=== PATIENT | female | born 1945 | race African-American/Black ===

== ENCOUNTER 2016-11-08 07:22 | Day surgery (SDC) | payer OTHER, MEDICARE ==
[2016-11-08] MEDS ORDERED: DIPHENHYDRAMINE IVPB ONE (08:00)
[2016-11-08] MEDS ORDERED: DEXAMETHASONE IVPB ONE (08:00)
[2016-11-08] MEDS ORDERED: [UNRECOGNIZED DRUG - OTHER] IVPB ONE (08:00)
[2016-11-08] MEDS ORDERED: ONDANSETRON IVPB ONE (08:00)
[2016-11-08] MEDS ORDERED: PACLITAXEL IVPB ONE (08:30)
[2016-11-08] MEDS ORDERED: SODIUM CHLORIDE IVPB ONE (08:30)
[2016-11-08] MEDS ORDERED: SODIUM CHLORIDE 250 ML IV ONE (09:30)
[2016-11-08 09:52] LABS: BASOPHIL 0.8 % (0-2.0); MCHC 32.4 g/dl (32.0-36.0)
[2016-11-08 09:57] LABS: MCH 29.5 pg (25.7-33.7); MEAN CELL VOLUME 90.8 fl (80-96); MEAN PLT VOLUME 8.9 fl (7.5-11.1); NEUTROPHILS 57.7 % (42.8-82.8); PLATELET COUNT 229 K/MM3 (134-434); RDW 21.4 % (11.6-15.6); WHITE BLOOD COUNT 5.2 K/mm3 (4.0-10.0)
[2016-11-08 12:44] LABS: ANISOCYTOSIS 3+; HYPOCHROMIA 2+; MICROCYTOSIS 2+; POLYCHROMASIA 1+; TEAR DROP CELLS 1+
[2016-11-08 15:10] VITALS: TEMP 97.7
[2016-11-08 15:13] VITALS: BP 122/73; PULSE 76
[2016-11-08 15:44] VITALS: BMI 25.8
== END 2016-11-08 16:20 | disposition home or self-care (01) ==
LOC: J7W 07:22 → JONCCHEMO 07:22 → JCHEMO 07:22 → JSAMEDAYSX 11:06 → J7W 11:16 → JCHEMO 16:20
PROVIDERS: ATTEND Internal Medicine Hematology & Oncology
DX: Z51.11 Encounter for antineoplastic chemotherapy (principal); C50.412 Malignant neoplasm of upper-outer quadrant of left female breast; C79.51 Secondary malignant neoplasm of bone; I10 Essential (primary) hypertension; E11.9 Type 2 diabetes mellitus without complications; D64.9 Anemia, unspecified; H40.9 Unspecified glaucoma
CPT/HCPCS: 96367; 96413; J9267; 36415; 85025; 96415

== ENCOUNTER 2016-11-15 06:33 | Day surgery (SDC) | payer OTHER, MEDICARE ==
[2016-11-15] MEDS ORDERED: ONDANSETRON IVPB ONE (08:00)
[2016-11-15] MEDS ORDERED: DEXAMETHASONE IVPB ONE (08:00)
[2016-11-15] MEDS ORDERED: SODIUM CHLORIDE 250 ML IV ONE (08:00)
[2016-11-15] MEDS ORDERED: [UNRECOGNIZED DRUG - OTHER] IVPB ONE (08:00)
[2016-11-15] MEDS ORDERED: DIPHENHYDRAMINE IVPB ONE (08:00)
[2016-11-15] MEDS ORDERED: PACLITAXEL 126 MG in SODIUM CHLORIDE 250 ML IVPB ONE (08:30)
[2016-11-15 08:33] LABS: MCH 29.6 pg (25.7-33.7); MCHC 32.4 g/dl (32.0-36.0); MEAN CELL VOLUME 91.5 fl (80-96); MEAN PLT VOLUME 8.9 fl (7.5-11.1); PLATELET COUNT 321 K/MM3 (134-434)
[2016-11-15 08:34] LABS: NEUTROPHILS 61.1 % (42.8-82.8)
[2016-11-15 08:35] LABS: BASOPHIL 1.2 % (0-2.0); EOSINOPHIL 0.9 % (0-4.5)
[2016-11-15 11:33] VITALS: BP 133/75; PULSE 83; TEMP 98.2
[2016-11-15 15:16] VITALS: BMI 25.2
== END 2016-11-15 15:50 | disposition home or self-care (01) ==
LOC: JONCCHEMO 06:33 → J7W 08:57 → JONCCHEMO 15:50
PROVIDERS: ATTEND Internal Medicine Hematology & Oncology
DX: Z51.11 Encounter for antineoplastic chemotherapy (principal); C50.412 Malignant neoplasm of upper-outer quadrant of left female breast; C79.51 Secondary malignant neoplasm of bone; I10 Essential (primary) hypertension; E11.9 Type 2 diabetes mellitus without complications; D64.9 Anemia, unspecified; H40.9 Unspecified glaucoma
CPT/HCPCS: 96367; 96413; J9267; 36415; 85027; 96415

== ENCOUNTER 2016-11-22 07:09 | Day surgery (SDC) | payer OTHER, MEDICARE ==
[2016-11-22] MEDS ORDERED: [UNRECOGNIZED DRUG - OTHER] IVPB ONE (08:00)
[2016-11-22] MEDS ORDERED: DIPHENHYDRAMINE IVPB ONE (08:00)
[2016-11-22] MEDS ORDERED: DEXAMETHASONE IVPB ONE (08:00)
[2016-11-22] MEDS ORDERED: ONDANSETRON IVPB ONE (08:00)
[2016-11-22] MEDS ORDERED: PACLITAXEL IVPB ONE (08:30)
[2016-11-22] MEDS ORDERED: SODIUM CHLORIDE IVPB ONE (08:30)
[2016-11-22] MEDS ORDERED: SODIUM CHLORIDE 250 ML IV ONE (09:30)
[2016-11-22 09:41] LABS: BASOPHIL 0.9 % (0-2.0); EOSINOPHIL 1.2 % (0-4.5); MCH 29.5 pg (25.7-33.7); MCHC 32.3 g/dl (32.0-36.0); MEAN CELL VOLUME 91.4 fl (80-96); MEAN PLT VOLUME 9.2 fl (7.5-11.1); PLATELET COUNT 245 K/MM3 (134-434); RDW 22.3 % (11.6-15.6); WHITE BLOOD COUNT 5.5 K/mm3 (4.0-10.0)
[2016-11-22] MEDS ORDERED: ZOLEDRONIC ACID 4 MG in SODIUM CHLORIDE 100 ML IVPB ONE (10:00)
[2016-11-22 10:30] VITALS: BP 143/76; PULSE 73; TEMP 97.7
== END 2016-11-22 15:00 | disposition home or self-care (01) ==
LOC: JONCCHEMO 07:09 → J7W 10:13 → JONCCHEMO 15:00
PROVIDERS: ATTEND Internal Medicine Hematology & Oncology
DX: Z51.11 Encounter for antineoplastic chemotherapy (principal); C50.411 Malignant neoplasm of upper-outer quadrant of right female breast; C50.412 Malignant neoplasm of upper-outer quadrant of left female breast; C77.9 Secondary and unspecified malignant neoplasm of lymph node, unspecified; C79.51 Secondary malignant neoplasm of bone; C79.2 Secondary malignant neoplasm of skin; I10 Essential (primary) hypertension; E11.9 Type 2 diabetes mellitus without complications
CPT/HCPCS: 36415; 85025; 96361; 96413; 96415; J3489

== ENCOUNTER 2016-11-29 06:54 | Day surgery (SDC) | payer OTHER, MEDICARE ==
[2016-11-29] MEDS ORDERED: PACLITAXEL IVPB ONE (08:30)
[2016-11-29] MEDS ORDERED: SODIUM CHLORIDE IVPB ONE (08:30)
[2016-11-29 08:32] LABS: BASOPHIL 0.9 % (0-2.0); EOSINOPHIL 1.5 % (0-4.5); MCH 30.3 pg (25.7-33.7); MCHC 32.8 g/dl (32.0-36.0); MEAN CELL VOLUME 92.5 fl (80-96); MEAN PLT VOLUME 9.2 fl (7.5-11.1); NEUTROPHILS 56.7 % (42.8-82.8); PLATELET COUNT 238 K/MM3 (134-434); RDW 22.8 % (11.6-15.6); WHITE BLOOD COUNT 4.9 K/mm3 (4.0-10.0)
[2016-11-29] MEDS ORDERED: SODIUM CHLORIDE 250 ML IV ONE (09:30)
[2016-11-29] MEDS ORDERED: FUROSEMIDE 40 MG TABLET (FP) PO SCH (09:45)
[2016-11-29] MEDS: DIPHENHYDRAMINE IVPB ONE ×2 (10:35→11:23)
[2016-11-29] MEDS: [UNRECOGNIZED DRUG - OTHER] IVPB ONE ×2 (10:35→11:23)
[2016-11-29] MEDS: ONDANSETRON IVPB ONE ×2 (10:35→11:23)
[2016-11-29] MEDS: DEXAMETHASONE IVPB ONE ×2 (10:35→11:23)
[2016-11-29 10:54] LABS: ALK PHOS 108 U/L (45-117); BILIRUBIN,TOTAL 0.3 mg/dL (0.2-1.0); SGOT/AST 29 U/L (15-37); SGPT/ALT 23 U/L (12-78); TOT PROT 6.6 g/dl (6.4-8.2)
[2016-11-29 10:55] LABS: BILIRUBIN,DIRECT < 0.1 mg/dL (0.0-0.2)
[2016-11-29 11:40] LABS: ANISOCYTOSIS 3+; MICROCYTOSIS 1+; TEAR DROP CELLS 1+
[2016-11-29 12:25] VITALS: TEMP 97.9
[2016-11-29 14:22] VITALS: BP 132/78; PULSE 86
== END 2016-11-29 14:30 | disposition home or self-care (01) ==
LOC: JONCCHEMO 06:54 → J7W 09:14 → JONCCHEMO 14:30
PROVIDERS: ATTEND Internal Medicine Hematology & Oncology
PROC: 3E04305 Introduction of Other Antineoplastic into Central Vein, Percutaneous Approach (ICD-10-PCS; principal; 2016-11-29)
PROC: 3E033GC Introduction of Other Therapeutic Substance into Peripheral Vein, Percutaneous Approach (ICD-10-PCS; 2016-11-29)
DX: Z51.11 Encounter for antineoplastic chemotherapy (principal); C50.411 Malignant neoplasm of upper-outer quadrant of right female breast; C50.412 Malignant neoplasm of upper-outer quadrant of left female breast; C77.9 Secondary and unspecified malignant neoplasm of lymph node, unspecified; C79.51 Secondary malignant neoplasm of bone; C79.2 Secondary malignant neoplasm of skin; I10 Essential (primary) hypertension; E11.9 Type 2 diabetes mellitus without complications
CPT/HCPCS: 96367; 96413; 96415; J9267; 36415; 71020-TC; 80076; 85025; 93970-TC

== ENCOUNTER 2016-12-13 07:03 | Day surgery (SDC) | payer OTHER, MEDICARE ==
[2016-12-13] MEDS ORDERED: ONDANSETRON IVPB ONE (08:00)
[2016-12-13] MEDS ORDERED: DIPHENHYDRAMINE IVPB ONE (08:00)
[2016-12-13] MEDS ORDERED: [UNRECOGNIZED DRUG - OTHER] IVPB ONE (08:00)
[2016-12-13] MEDS ORDERED: DEXAMETHASONE IVPB ONE (08:00)
[2016-12-13] MEDS ORDERED: SODIUM CHLORIDE IVPB ONE (08:30)
[2016-12-13] MEDS ORDERED: PACLITAXEL IVPB ONE (08:30)
[2016-12-13 08:55] LABS: BASOPHIL 1.6 % (0-2.0); EOSINOPHIL 1.1 % (0-4.5); MCH 29.7 pg (25.7-33.7); MCHC 32.3 g/dl (32.0-36.0); MEAN PLT VOLUME 8.7 fl (7.5-11.1); NEUTROPHILS 69.8 % (42.8-82.8); PLATELET COUNT 291 K/MM3 (134-434); RDW 21.9 % (11.6-15.6)
[2016-12-13] MEDS ORDERED: SODIUM CHLORIDE 250 ML IV ONE (09:30)
[2016-12-13 11:23] LABS: CALCIUM 8.5 mg/dL (8.5-10.1); CREATININE 0.7 mg/dL (0.55-1.02)
[2016-12-13 12:01] LABS: ALBUMIN 2.9 g/dl (3.4-5.0); BILIRUBIN,DIRECT 0.1 mg/dL (0.0-0.2); BILIRUBIN,TOTAL 0.3 mg/dL (0.2-1.0); MAGNESIUM 1.8 mg/dL (1.8-2.4); TOT PROT 6.3 g/dl (6.4-8.2)
[2016-12-13 17:07] VITALS: BP 130/81; PULSE 84; TEMP 98.5
== END 2016-12-13 15:00 | disposition home or self-care (01) ==
LOC: JONCCHEMO 07:03 → J7W 09:53 → JONCCHEMO 15:00
PROVIDERS: ATTEND Internal Medicine Hematology & Oncology
PROC: 3E04305 Introduction of Other Antineoplastic into Central Vein, Percutaneous Approach (ICD-10-PCS; principal; 2016-12-13)
PROC: 3E0437Z Introduction of Electrolytic and Water Balance Substance into Central Vein, Percutaneous Approach (ICD-10-PCS; 2016-12-13)
PROC: 3E043GC Introduction of Other Therapeutic Substance into Central Vein, Percutaneous Approach (ICD-10-PCS; 2016-12-13)
DX: Z51.11 Encounter for antineoplastic chemotherapy (principal); C50.411 Malignant neoplasm of upper-outer quadrant of right female breast; C50.412 Malignant neoplasm of upper-outer quadrant of left female breast; C79.51 Secondary malignant neoplasm of bone
CPT/HCPCS: 96367; 96413; J9267; 36415; 80048; 80076; 82378; 83036; 83735; 85025; 86300; 96415

== ENCOUNTER 2016-12-20 07:01 | Day surgery (SDC) | payer OTHER, MEDICARE ==
[2016-12-20] MEDS ORDERED: ONDANSETRON IVPB ONE (08:00)
[2016-12-20] MEDS ORDERED: [UNRECOGNIZED DRUG - OTHER] IVPB ONE (08:00)
[2016-12-20] MEDS ORDERED: DIPHENHYDRAMINE IVPB ONE (08:00)
[2016-12-20] MEDS ORDERED: DEXAMETHASONE IVPB ONE (08:00)
[2016-12-20] MEDS ORDERED: PACLITAXEL IVPB ONE (08:30)
[2016-12-20] MEDS ORDERED: SODIUM CHLORIDE IVPB ONE (08:30)
[2016-12-20 09:00] LABS: BASOPHIL 2.8 % (0-2.0); EOSINOPHIL 1.5 % (0-4.5); MCH 29.7 pg (25.7-33.7); MCHC 32.3 g/dl (32.0-36.0); MEAN CELL VOLUME 92.1 fl (80-96); MEAN PLT VOLUME 9.4 fl (7.5-11.1); NEUTROPHILS 62.9 % (42.8-82.8); PLATELET COUNT 263 K/MM3 (134-434); RDW 21.2 % (11.6-15.6); WHITE BLOOD COUNT 6.3 K/mm3 (4.0-10.0)
[2016-12-20] MEDS ORDERED: SODIUM CHLORIDE 250 ML IV ONE (09:30)
[2016-12-20] MEDS ORDERED: ZOLEDRONIC ACID 4 MG in SODIUM CHLORIDE 100 ML IVPB ONE (10:00)
[2016-12-20 18:48] VITALS: BP 137/65; PULSE 78; TEMP 97.2
== END 2016-12-20 15:00 | disposition home or self-care (01) ==
LOC: JONCCHEMO 07:01 → J7W 10:27 → JONCCHEMO 15:00
PROVIDERS: ATTEND Internal Medicine Hematology & Oncology
PROC: 3E04305 Introduction of Other Antineoplastic into Central Vein, Percutaneous Approach (ICD-10-PCS; principal; 2016-12-20)
PROC: 3E0437Z Introduction of Electrolytic and Water Balance Substance into Central Vein, Percutaneous Approach (ICD-10-PCS; 2016-12-20)
PROC: 3E043GC Introduction of Other Therapeutic Substance into Central Vein, Percutaneous Approach (ICD-10-PCS; 2016-12-20)
DX: Z51.11 Encounter for antineoplastic chemotherapy (principal); C50.412 Malignant neoplasm of upper-outer quadrant of left female breast; C79.51 Secondary malignant neoplasm of bone; J91.0 Malignant pleural effusion
CPT/HCPCS: 36415; 85025; 93970-TC; 96360; 96365; 96367; 96413; J3489

== ENCOUNTER 2016-12-27 08:29 | Day surgery (SDC) | payer OTHER, MEDICARE ==
[2016-12-27] MEDS ORDERED: [UNRECOGNIZED DRUG - OTHER] IVPB ONE (09:00)
[2016-12-27] MEDS ORDERED: DIPHENHYDRAMINE IVPB ONE (09:00)
[2016-12-27] MEDS ORDERED: ONDANSETRON IVPB ONE (09:00)
[2016-12-27] MEDS ORDERED: DEXAMETHASONE IVPB ONE (09:00)
[2016-12-27 09:04] LABS: MCH 29.7 pg (25.7-33.7); MCHC 32.6 g/dl (32.0-36.0); MEAN CELL VOLUME 91.2 fl (80-96); PLATELET COUNT 208 K/MM3 (134-434); RDW 21.9 % (11.6-15.6)
[2016-12-27 09:05] LABS: BASOPHIL 1.1 % (0-2.0); EOSINOPHIL 2.7 % (0-4.5); NEUTROPHILS 63.2 % (42.8-82.8)
[2016-12-27] MEDS ORDERED: PACLITAXEL 126 MG in SODIUM CHLORIDE 250 ML IVPB ONE (09:30)
[2016-12-27] MEDS ORDERED: SODIUM CHLORIDE 250 ML IV ONE (10:30)
[2016-12-27] MEDS ORDERED: ZOLEDRONIC ACID 4 MG in SODIUM CHLORIDE 100 ML IVPB ONE (11:00)
[2016-12-27 15:15] VITALS: TEMP 98.4
[2016-12-27 15:44] VITALS: BP 118/79; PULSE 90
== END 2016-12-27 14:00 | disposition home or self-care (01) ==
LOC: JONCCHEMO 08:29 → J7W 09:32 → JONCCHEMO 14:00
PROVIDERS: ATTEND Internal Medicine Hematology & Oncology
PROC: 3E04305 Introduction of Other Antineoplastic into Central Vein, Percutaneous Approach (ICD-10-PCS; principal; 2016-12-27)
PROC: 3E043GC Introduction of Other Therapeutic Substance into Central Vein, Percutaneous Approach (ICD-10-PCS; 2016-12-27)
PROC: 3E0437Z Introduction of Electrolytic and Water Balance Substance into Central Vein, Percutaneous Approach (ICD-10-PCS; 2016-12-27)
DX: Z51.11 Encounter for antineoplastic chemotherapy (principal); C50.412 Malignant neoplasm of upper-outer quadrant of left female breast; C79.51 Secondary malignant neoplasm of bone; J91.0 Malignant pleural effusion
CPT/HCPCS: 96366; 96367; 96413; J1100; J1200; J2405; J3489; J7030; J9267; 36415; 85025; 96360; 96365

== ENCOUNTER 2017-01-03 07:03 | Day surgery (SDC) | payer OTHER, MEDICARE ==
[2017-01-03] MEDS ORDERED: ONDANSETRON IVPB ONE (08:00)
[2017-01-03] MEDS ORDERED: DIPHENHYDRAMINE IVPB ONE (08:00)
[2017-01-03] MEDS ORDERED: DEXAMETHASONE INJECTION 10 MG in SODIUM CHLORIDE 50 ML IVPB ONE (08:00)
[2017-01-03] MEDS ORDERED: [UNRECOGNIZED DRUG - OTHER] IVPB ONE (08:00)
[2017-01-03] MEDS ORDERED: ONDANSETRON INJECTION 12 MG, DIPHENHYDRAMINE 25 MG, RANITIDINE INJECTION 50 MG in SODIU... IVPB ONE (08:00)
[2017-01-03] MEDS ORDERED: DEXAMETHASONE IVPB ONE (08:00)
[2017-01-03] MEDS ORDERED: PACLITAXEL 126 MG in SODIUM CHLORIDE 250 ML IVPB ONE (08:30)
[2017-01-03] MEDS ORDERED: SODIUM CHLORIDE 250 ML IV ONE (09:30)
[2017-01-03 09:37] VITALS: TEMP 98.2
[2017-01-03 09:45] LABS: EOSINOPHIL 1.3 % (0-4.5); MCH 30.1 pg (25.7-33.7); MCHC 32.2 g/dl (32.0-36.0); MEAN CELL VOLUME 93.4 fl (80-96); MEAN PLT VOLUME 9.6 fl (7.5-11.1); NEUTROPHILS 62.7 % (42.8-82.8); PLATELET COUNT 249 K/MM3 (134-434); RDW 21.8 % (11.6-15.6); WHITE BLOOD COUNT 4.9 K/mm3 (4.0-10.0)
[2017-01-03 11:40] LABS: ANION GAP 10 (8-16); BILIRUBIN,TOTAL 0.3 mg/dL (0.2-1.0); CALCIUM 8.5 mg/dL (8.5-10.1); CO2 25 mmol/L (21-32); COCKROFT - GAULT 0; CREATININE 0.6 mg/dL (0.55-1.02); GLUCOSE,RANDOM 91 mg/dL (74-106); MAGNESIUM 2.1 mg/dL (1.8-2.4); SGOT/AST 34 U/L (15-37); SGPT/ALT 26 U/L (12-78); TOT PROT 6.3 g/dl (6.4-8.2)
[2017-01-03 11:41] LABS: ALK PHOS 106 U/L (45-117)
[2017-01-03 11:45] LABS: BILIRUBIN,DIRECT < 0.1 mg/dL (0.0-0.2)
[2017-01-03] MEDS ORDERED: PORTA CATH FLUSH 10 ML IVPUSH ONE (15:08)
[2017-01-03 15:15] VITALS: BP 125/75; PULSE 86
== END 2017-01-03 13:50 | disposition home or self-care (01) ==
LOC: JONCCHEMO 07:03 → J7W 10:30 → JONCCHEMO 13:50
PROVIDERS: ATTEND Internal Medicine Hematology & Oncology
PROC: 3E04305 Introduction of Other Antineoplastic into Central Vein, Percutaneous Approach (ICD-10-PCS; principal; 2017-01-03)
PROC: 3E043GC Introduction of Other Therapeutic Substance into Central Vein, Percutaneous Approach (ICD-10-PCS; 2017-01-03)
PROC: 3E0437Z Introduction of Electrolytic and Water Balance Substance into Central Vein, Percutaneous Approach (ICD-10-PCS; 2017-01-03)
DX: Z51.11 Encounter for antineoplastic chemotherapy (principal); C50.412 Malignant neoplasm of upper-outer quadrant of left female breast; C79.51 Secondary malignant neoplasm of bone; J91.0 Malignant pleural effusion
CPT/HCPCS: 96367; 96413; J1100; J1200; J2405; J7030; J9267; 36415; 80048; 80076; 82378; 83735; 85025; 86300; 96360

== ENCOUNTER 2017-01-09 07:03 | Day surgery (SDC) | payer OTHER, MEDICARE ==
[2017-01-09] MEDS ORDERED: DEXAMETHASONE INJECTION 10 MG in SODIUM CHLORIDE 50 ML IVPB ONE (08:00)
[2017-01-09] MEDS ORDERED: SODIUM CHLORIDE 250 ML IV ONE (08:00)
[2017-01-09] MEDS ORDERED: ONDANSETRON INJECTION 12 MG, DIPHENHYDRAMINE 25 MG, RANITIDINE INJECTION 50 MG in SODIU... IVPB ONE (08:00)
[2017-01-09] MEDS ORDERED: PACLITAXEL 126 MG in SODIUM CHLORIDE 250 ML IVPB ONE (08:30)
[2017-01-09 08:45] LABS: BASOPHIL 2.2 % (0-2.0); EOSINOPHIL 2.2 % (0-4.5); MCH 30.6 pg (25.7-33.7); MCHC 32.9 g/dl (32.0-36.0); MEAN CELL VOLUME 93.3 fl (80-96); MEAN PLT VOLUME 9.3 fl (7.5-11.1); NEUTROPHILS 54.9 % (42.8-82.8); PLATELET COUNT 287 K/MM3 (134-434); RDW 21.5 % (11.6-15.6); WHITE BLOOD COUNT 3.2 K/mm3 (4.0-10.0)
[2017-01-09 09:10] LABS: ALBUMIN 2.9 g/dl (3.4-5.0); ALK PHOS 97 U/L (45-117); ANION GAP 8 (8-16); BILIRUBIN,TOTAL 0.3 mg/dL (0.2-1.0); CALCIUM 8.5 mg/dL (8.5-10.1); CO2 25 mmol/L (21-32); COCKROFT - GAULT 77.35; CREATININE 0.7 mg/dL (0.55-1.02); GLUCOSE,RANDOM 97 mg/dL (74-106); MAGNESIUM 1.8 mg/dL (1.8-2.4); SGOT/AST 40 U/L (15-37); SGPT/ALT 28 U/L (12-78); TOT PROT 6.3 g/dl (6.4-8.2)
[2017-01-09] MEDS ORDERED: PORTA CATH FLUSH 10 ML IVPUSH ONE (10:43)
[2017-01-09 11:59] LABS: ANISOCYTOSIS 2+; HYPOCHROMIA 1+; MICROCYTOSIS 1+; POLYCHROMASIA 1+
[2017-01-09 15:14] VITALS: BP 157/77; PULSE 83; TEMP 97.8
== END 2017-01-09 12:45 | disposition home or self-care (01) ==
LOC: JONCCHEMO 07:03 → J7W 09:11 → JONCCHEMO 12:45
PROVIDERS: ATTEND Internal Medicine Hematology & Oncology
PROC: 3E04305 Introduction of Other Antineoplastic into Central Vein, Percutaneous Approach (ICD-10-PCS; principal; 2017-01-09)
PROC: 3E043GC Introduction of Other Therapeutic Substance into Central Vein, Percutaneous Approach (ICD-10-PCS; 2017-01-09)
PROC: 3E0437Z Introduction of Electrolytic and Water Balance Substance into Central Vein, Percutaneous Approach (ICD-10-PCS; 2017-01-09)
DX: Z51.11 Encounter for antineoplastic chemotherapy (principal); C50.412 Malignant neoplasm of upper-outer quadrant of left female breast; C79.51 Secondary malignant neoplasm of bone; J91.0 Malignant pleural effusion
CPT/HCPCS: 96361; 96367; 96375; 96413; J1200; J2405; J2780; J7030; J9267; 36415; 80053; 83735; 85025; 96360

== ENCOUNTER 2017-01-17 06:59 | Day surgery (SDC) | payer OTHER, MEDICARE ==
[2017-01-17] MEDS ORDERED: ONDANSETRON INJECTION 12 MG, DIPHENHYDRAMINE 25 MG, RANITIDINE INJECTION 50 MG in SODIU... IVPB ONE (08:00)
[2017-01-17] MEDS ORDERED: DEXAMETHASONE INJECTION 10 MG in SODIUM CHLORIDE 50 ML IVPB ONE (08:00)
[2017-01-17] MEDS ORDERED: SODIUM CHLORIDE 250 ML IV ONE (08:00)
[2017-01-17] MEDS ORDERED: PACLITAXEL 126 MG in SODIUM CHLORIDE 250 ML IVPB ONE (08:30)
[2017-01-17 08:39] LABS: BASOPHIL 1.5 % (0-2.0); EOSINOPHIL 1.2 % (0-4.5); MCH 30.5 pg (25.7-33.7); MCHC 32.7 g/dl (32.0-36.0); MEAN CELL VOLUME 93.2 fl (80-96); MEAN PLT VOLUME 9.3 fl (7.5-11.1); NEUTROPHILS 58.7 % (42.8-82.8); PLATELET COUNT 338 K/MM3 (134-434); RDW 21.4 % (11.6-15.6); WHITE BLOOD COUNT 3.4 K/mm3 (4.0-10.0)
[2017-01-17 14:19] VITALS: BP 135/70; PULSE 91
[2017-01-17 14:30] VITALS: TEMP 98.2
[2017-01-17 15:05] LABS: ANISOCYTOSIS 2+; MICROCYTOSIS FEW
[2017-01-17 15:07] LABS: PLATELET ESTIMATE ADEQUATE (NORMAL)
== END 2017-01-17 14:51 | disposition home or self-care (01) ==
LOC: JONCCHEMO 06:59 → J7W 09:31 → JONCCHEMO 14:51
PROVIDERS: ATTEND Internal Medicine Hematology & Oncology
PROC: 3E04305 Introduction of Other Antineoplastic into Central Vein, Percutaneous Approach (ICD-10-PCS; principal; 2017-01-17)
PROC: 3E043GC Introduction of Other Therapeutic Substance into Central Vein, Percutaneous Approach (ICD-10-PCS; 2017-01-17)
PROC: 3E0437Z Introduction of Electrolytic and Water Balance Substance into Central Vein, Percutaneous Approach (ICD-10-PCS; 2017-01-17)
DX: C50.412 Malignant neoplasm of upper-outer quadrant of left female breast (principal); C79.51 Secondary malignant neoplasm of bone; J91.0 Malignant pleural effusion
CPT/HCPCS: 96367; 96375; 96413; J9267; 36415; 85025; 96360

== ENCOUNTER 2017-01-24 07:11 | Day surgery (SDC) | payer OTHER, MEDICARE ==
[2017-01-24] MEDS ORDERED: DEXAMETHASONE INJECTION 10 MG in SODIUM CHLORIDE 50 ML IVPB ONE (08:00)
[2017-01-24] MEDS ORDERED: ONDANSETRON INJECTION 12 MG, DIPHENHYDRAMINE 25 MG, RANITIDINE INJECTION 50 MG in SODIU... IVPB ONE (08:00)
[2017-01-24] MEDS ORDERED: PACLITAXEL 126 MG in SODIUM CHLORIDE 250 ML IVPB ONE (08:30)
[2017-01-24] MEDS ORDERED: SODIUM CHLORIDE 250 ML IV ONE (09:30)
[2017-01-24] MEDS ORDERED: ZOLEDRONIC ACID 4 MG in SODIUM CHLORIDE 100 ML IVPB ONE (09:30)
[2017-01-24 09:42] LABS: BASOPHIL 1.4 % (0-2.0); EOSINOPHIL 1.1 % (0-4.5); MCHC 33.1 g/dl (32.0-36.0); MEAN CELL VOLUME 93.9 fl (80-96); MEAN PLT VOLUME 9.7 fl (7.5-11.1); NEUTROPHILS 56.2 % (42.8-82.8); PLATELET COUNT 255 K/MM3 (134-434); RDW 20.3 % (11.6-15.6); WHITE BLOOD COUNT 4.5 K/mm3 (4.0-10.0)
[2017-01-24 14:23] LABS: BILIRUBIN,DIRECT 0.1 mg/dL (0.0-0.2); BILIRUBIN,TOTAL 0.3 mg/dL (0.2-1.0); TOT PROT 6.2 g/dl (6.4-8.2)
[2017-01-24] MEDS ORDERED: PORTA CATH FLUSH 10 ML IVPUSH ONE (14:36)
[2017-01-24 16:55] VITALS: BP 132/72; PULSE 79; TEMP 97.8
== END 2017-01-24 18:19 | disposition home or self-care (01) ==
LOC: JONCCHEMO 07:11 → J7W 10:31 → JONCCHEMO 18:19
PROVIDERS: ATTEND Internal Medicine Hematology & Oncology
PROC: 3E04305 Introduction of Other Antineoplastic into Central Vein, Percutaneous Approach (ICD-10-PCS; principal; 2017-01-24)
PROC: 3E043GC Introduction of Other Therapeutic Substance into Central Vein, Percutaneous Approach (ICD-10-PCS; 2017-01-24)
PROC: 3E0437Z Introduction of Electrolytic and Water Balance Substance into Central Vein, Percutaneous Approach (ICD-10-PCS; 2017-01-24)
DX: Z51.11 Encounter for antineoplastic chemotherapy (principal); C50.412 Malignant neoplasm of upper-outer quadrant of left female breast; C50.411 Malignant neoplasm of upper-outer quadrant of right female breast; C79.51 Secondary malignant neoplasm of bone; J91.0 Malignant pleural effusion
CPT/HCPCS: 96367; 96375; 96413; J9267; 36415; 80076; 82378; 85025; 86300; 96360; 96365; J3489

== ENCOUNTER 2017-01-31 07:14 | Day surgery (SDC) | payer OTHER, MEDICARE ==
[2017-01-31] MEDS ORDERED: ONDANSETRON INJECTION 12 MG, DIPHENHYDRAMINE 25 MG, RANITIDINE INJECTION 50 MG in SODIU... IVPB ONE (08:00)
[2017-01-31] MEDS ORDERED: DEXAMETHASONE INJECTION 10 MG in SODIUM CHLORIDE 50 ML IVPB ONE (08:00)
[2017-01-31] MEDS ORDERED: PACLITAXEL 126 MG in SODIUM CHLORIDE 250 ML IVPB ONE (08:30)
[2017-01-31] MEDS ORDERED: SODIUM CHLORIDE 250 ML IV ONE (09:30)
[2017-01-31 09:33] LABS: BASOPHIL 1.6 % (0-2.0); EOSINOPHIL 1.7 % (0-4.5); MCHC 32.7 g/dl (32.0-36.0); MEAN CELL VOLUME 94.6 fl (80-96); MEAN PLT VOLUME 9.6 fl (7.5-11.1); NEUTROPHILS 55.6 % (42.8-82.8); PLATELET COUNT 266 K/MM3 (134-434); RDW 20.7 % (11.6-15.6)
[2017-01-31] MEDS ORDERED: PORTA CATH FLUSH 10 ML IVPUSH ONE (13:54)
[2017-01-31 14:50] LABS: WHITE BLOOD COUNT 4.6 K/mm3 (4.0-10.0)
[2017-01-31 18:23] VITALS: TEMP 97.8
[2017-01-31 18:29] VITALS: BP 138/80; PULSE 85
== END 2017-01-31 18:43 | disposition home or self-care (01) ==
LOC: JONCCHEMO 07:14 → J7W 10:38 → JONCCHEMO 18:43
PROVIDERS: ATTEND Internal Medicine Hematology & Oncology
DX: Z51.11 Encounter for antineoplastic chemotherapy (principal); C50.919 Malignant neoplasm of unspecified site of unspecified female breast; C79.51 Secondary malignant neoplasm of bone
CPT/HCPCS: 36415; 36598; 85025; 96360; 96367; 96413

== ENCOUNTER 2017-02-07 07:29 | Day surgery (SDC) | payer OTHER, MEDICARE ==
[2017-02-07] MEDS ORDERED: DEXAMETHASONE INJECTION 10 MG in SODIUM CHLORIDE 50 ML IVPB ONE (08:00)
[2017-02-07] MEDS ORDERED: SODIUM CHLORIDE 250 ML IV ONE (08:00)
[2017-02-07] MEDS ORDERED: ONDANSETRON INJECTION 12 MG, DIPHENHYDRAMINE 25 MG, RANITIDINE INJECTION 50 MG in SODIU... IVPB ONE (08:00)
[2017-02-07] MEDS ORDERED: PACLITAXEL 126 MG in SODIUM CHLORIDE 250 ML IVPB ONE (08:30)
[2017-02-07 09:35] LABS: BASOPHIL 0.8 % (0-2.0); EOSINOPHIL 0.8 % (0-4.5); MCH 31.1 pg (25.7-33.7); MCHC 32.9 g/dl (32.0-36.0); MEAN CELL VOLUME 94.4 fl (80-96); MEAN PLT VOLUME 9.5 fl (7.5-11.1); PLATELET COUNT 232 K/MM3 (134-434); RDW 19.5 % (11.6-15.6); WHITE BLOOD COUNT 5.2 K/mm3 (4.0-10.0)
[2017-02-07] MEDS ORDERED: ALTEPLASE 2 MG VIAL CVP ONE (11:00)
[2017-02-07] MEDS ORDERED: PORTA CATH FLUSH 10 ML IVPUSH ONE (11:02)
[2017-02-07 13:14] LABS: ALBUMIN 3.1 g/dl (3.4-5.0); BILIRUBIN,DIRECT 0.3 mg/dL (0.0-0.2); BILIRUBIN,TOTAL 0.7 mg/dL (0.2-1.0); MAGNESIUM 2.3 mg/dL (1.8-2.4)
[2017-02-07 13:15] LABS: TOT PROT 6.7 g/dl (6.4-8.2)
[2017-02-07 17:28] VITALS: BP 127/77; PULSE 86
[2017-02-07 17:29] VITALS: TEMP 98.3
== END 2017-02-07 17:41 | disposition home or self-care (01) ==
LOC: JONCCHEMO 07:29 → J7W 10:35 → JONCCHEMO 17:41
PROVIDERS: ATTEND Internal Medicine Hematology & Oncology
PROC: 3E04305 Introduction of Other Antineoplastic into Central Vein, Percutaneous Approach (ICD-10-PCS; principal; 2017-02-07)
PROC: 3E043GC Introduction of Other Therapeutic Substance into Central Vein, Percutaneous Approach (ICD-10-PCS; 2017-02-07)
PROC: 3E0437Z Introduction of Electrolytic and Water Balance Substance into Central Vein, Percutaneous Approach (ICD-10-PCS; 2017-02-07)
DX: Z51.11 Encounter for antineoplastic chemotherapy (principal); C50.411 Malignant neoplasm of upper-outer quadrant of right female breast; C50.412 Malignant neoplasm of upper-outer quadrant of left female breast; C79.51 Secondary malignant neoplasm of bone; J91.0 Malignant pleural effusion
CPT/HCPCS: 96367; 96375; 96413; J9267; 36415; 71020-TC; 80076; 82378; 83735; 85025; 86300; 96360; J2997

== ENCOUNTER 2017-02-14 07:27 | Day surgery (SDC) | payer OTHER, MEDICARE ==
[2017-02-14 09:58] LABS: BASOPHIL 2.5 % (0-2.0); EOSINOPHIL 0.8 % (0-4.5); MCH 31.3 pg (25.7-33.7); MEAN CELL VOLUME 94.9 fl (80-96); MEAN PLT VOLUME 8.8 fl (7.5-11.1); NEUTROPHILS 58.9 % (42.8-82.8); PLATELET COUNT 351 K/MM3 (134-434); RDW 19.7 % (11.6-15.6); WHITE BLOOD COUNT 5.3 K/mm3 (4.0-10.0)
[2017-02-14] MEDS ORDERED: SODIUM CHLORIDE 250 ML IV ONE (10:00)
[2017-02-14] MEDS ORDERED: ONDANSETRON INJECTION 12 MG, DIPHENHYDRAMINE 25 MG, RANITIDINE INJECTION 50 MG in SODIU... IVPB ONE (10:00)
[2017-02-14] MEDS ORDERED: DEXAMETHASONE INJECTION 10 MG in SODIUM CHLORIDE 50 ML IVPB ONE (10:00)
[2017-02-14] MEDS ORDERED: PACLITAXEL 126 MG in SODIUM CHLORIDE 250 ML IVPB ONE (10:30)
[2017-02-14] MEDS ORDERED: PORTA CATH FLUSH 10 ML IVPUSH ONE (12:57)
[2017-02-14 13:39] LABS: ALBUMIN 2.9 g/dl (3.4-5.0); ALK PHOS 127 U/L (45-117); ANION GAP 9 (8-16); BILIRUBIN,DIRECT 0.1 mg/dL (0.0-0.2); BILIRUBIN,TOTAL 0.3 mg/dL (0.2-1.0); CO2 29 mmol/L (21-32); CREATININE 0.7 mg/dL (0.55-1.02); GLUCOSE,RANDOM 90 mg/dL (74-106); MAGNESIUM 2.1 mg/dL (1.8-2.4); SGOT/AST 40 U/L (15-37); SGPT/ALT 30 U/L (12-78); TOT PROT 6.4 g/dl (6.4-8.2)
[2017-02-14 16:22] VITALS: BP 134/82; PULSE 85; TEMP 97.9
== END 2017-02-14 16:43 | disposition home or self-care (01) ==
LOC: JONCCHEMO 07:27 → J7W 12:04 → JONCCHEMO 16:43
PROVIDERS: ATTEND Internal Medicine Hematology & Oncology
PROC: 3E04305 Introduction of Other Antineoplastic into Central Vein, Percutaneous Approach (ICD-10-PCS; principal; 2017-02-14)
PROC: 3E043GC Introduction of Other Therapeutic Substance into Central Vein, Percutaneous Approach (ICD-10-PCS; 2017-02-14)
PROC: 3E0437Z Introduction of Electrolytic and Water Balance Substance into Central Vein, Percutaneous Approach (ICD-10-PCS; 2017-02-14)
DX: Z51.11 Encounter for antineoplastic chemotherapy (principal); C50.411 Malignant neoplasm of upper-outer quadrant of right female breast; C50.412 Malignant neoplasm of upper-outer quadrant of left female breast; C79.51 Secondary malignant neoplasm of bone; J91.0 Malignant pleural effusion
CPT/HCPCS: 96367; 96375; 96413; J9267; 36415; 80053; 80076; 82378; 83735; 85025; 86300

== ENCOUNTER 2017-02-28 07:34 | Day surgery (SDC) | payer OTHER, MEDICARE ==
[2017-02-28] MEDS ORDERED: SODIUM CHLORIDE 250 ML IV ONE (10:00)
[2017-02-28] MEDS ORDERED: ONDANSETRON INJECTION 12 MG, DIPHENHYDRAMINE 25 MG, RANITIDINE INJECTION 50 MG in SODIU... IVPB ONE (10:00)
[2017-02-28] MEDS ORDERED: DEXAMETHASONE INJECTION 10 MG in SODIUM CHLORIDE 50 ML IVPB ONE (10:00)
[2017-02-28 10:17] LABS: BASOPHIL 1.1 % (0-2.0); EOSINOPHIL 1.6 % (0-4.5); MCHC 32.5 g/dl (32.0-36.0); MEAN CELL VOLUME 95.5 fl (80-96); MEAN PLT VOLUME 8.3 fl (7.5-11.1); NEUTROPHILS 55.5 % (42.8-82.8); PLATELET COUNT 277 K/MM3 (134-434); WHITE BLOOD COUNT 4.7 K/mm3 (4.0-10.0)
[2017-02-28] MEDS ORDERED: PACLITAXEL 126 MG in SODIUM CHLORIDE 250 ML IVPB ONE (10:30)
[2017-02-28 10:42] LABS: ALBUMIN 3.1 g/dl (3.4-5.0); ALK PHOS 128 U/L (45-117); ANION GAP 7 (8-16); BILIRUBIN,TOTAL 0.4 mg/dL (0.2-1.0); CALCIUM 9.3 mg/dL (8.5-10.1); CO2 30 mmol/L (21-32); CREATININE 0.8 mg/dL (0.55-1.02); GLUCOSE,RANDOM 86 mg/dL (74-106); MAGNESIUM 2.2 mg/dL (1.8-2.4); SGOT/AST 44 U/L (15-37); SGPT/ALT 30 U/L (12-78); TOT PROT 6.7 g/dl (6.4-8.2)
[2017-02-28] MEDS ORDERED: ZOLEDRONIC ACID 4 MG in SODIUM CHLORIDE 100 ML IVPB ONE (11:30)
[2017-02-28 17:24] VITALS: BP 133/77; PULSE 87; TEMP 98
== END 2017-02-28 15:54 | disposition home or self-care (01) ==
LOC: JONCCHEMO 07:34 → J7W 10:59 → JONCCHEMO 15:54
PROVIDERS: ATTEND Internal Medicine Hematology & Oncology
DX: Z51.11 Encounter for antineoplastic chemotherapy (principal); C50.411 Malignant neoplasm of upper-outer quadrant of right female breast; C50.412 Malignant neoplasm of upper-outer quadrant of left female breast
CPT/HCPCS: 36415; 80053; 82378; 83735; 85025; 86300; 96360; 96365; 96367; 96413; J3489

== ENCOUNTER 2017-03-07 07:27 | Day surgery (SDC) | payer OTHER ==
[2017-03-07 09:47] LABS: BASOPHIL 1.6 % (0-2.0); EOSINOPHIL 1.8 % (0-4.5); MCH 30.8 pg (25.7-33.7); MCHC 32.4 g/dl (32.0-36.0); MEAN CELL VOLUME 95.2 fl (80-96); MEAN PLT VOLUME 9.6 fl (7.5-11.1); NEUTROPHILS 59.7 % (42.8-82.8); PLATELET COUNT 255 K/MM3 (134-434); RDW 18.5 % (11.6-15.6); WHITE BLOOD COUNT 5.4 K/mm3 (4.0-10.0)
[2017-03-07] MEDS ORDERED: DEXAMETHASONE INJECTION 10 MG in SODIUM CHLORIDE 50 ML IVPB ONE (10:00)
[2017-03-07] MEDS ORDERED: ONDANSETRON INJECTION 12 MG, DIPHENHYDRAMINE 25 MG, RANITIDINE INJECTION 50 MG in SODIU... IVPB ONE (10:00)
[2017-03-07 10:17] LABS: ALBUMIN 3.1 g/dl (3.4-5.0); ANION GAP 8 (8-16); BILIRUBIN,TOTAL 0.3 mg/dL (0.2-1.0); CALCIUM 8.7 mg/dL (8.5-10.1); CO2 25 mmol/L (21-32); CREATININE 0.7 mg/dL (0.55-1.02); GLUCOSE,RANDOM 96 mg/dL (74-106); SGOT/AST 54 U/L (15-37); SGPT/ALT 30 U/L (12-78); TOT PROT 6.6 g/dl (6.4-8.2)
[2017-03-07 10:18] LABS: ALK PHOS 116 U/L (45-117)
[2017-03-07] MEDS ORDERED: PACLITAXEL 126 MG in SODIUM CHLORIDE 250 ML IVPB ONE (10:30)
[2017-03-07 10:56] VITALS: TEMP 97.7
[2017-03-07] MEDS ORDERED: PORTA CATH FLUSH 10 ML IVPUSH ONE (10:56)
[2017-03-07] MEDS ORDERED: SODIUM CHLORIDE 250 ML IV ONE (11:30)
[2017-03-07 14:14] VITALS: BP 143/78; PULSE 90
== END 2017-03-07 14:45 | disposition home or self-care (01) ==
LOC: JONCCHEMO 07:27 → J7W 10:27 → JONCCHEMO 14:45
PROVIDERS: ATTEND Internal Medicine Hematology & Oncology
PROC: 3E04305 Introduction of Other Antineoplastic into Central Vein, Percutaneous Approach (ICD-10-PCS; principal; 2017-03-07)
PROC: 3E043GC Introduction of Other Therapeutic Substance into Central Vein, Percutaneous Approach (ICD-10-PCS; 2017-03-07)
PROC: 3E0437Z Introduction of Electrolytic and Water Balance Substance into Central Vein, Percutaneous Approach (ICD-10-PCS; 2017-03-07)
DX: Z51.11 Encounter for antineoplastic chemotherapy (principal); C50.411 Malignant neoplasm of upper-outer quadrant of right female breast; C50.412 Malignant neoplasm of upper-outer quadrant of left female breast; J91.0 Malignant pleural effusion; C79.51 Secondary malignant neoplasm of bone
CPT/HCPCS: 96367; 96375; 96413; J9267; 36415; 80053; 83735; 85025; 96360

== ENCOUNTER 2017-03-21 07:28 | Day surgery (SDC) | payer OTHER, MEDICARE ==
[2017-03-21 09:55] LABS: BASOPHIL 1.1 % (0-2.0); EOSINOPHIL 1.4 % (0-4.5); MCH 30.5 pg (25.7-33.7); MCHC 32.4 g/dl (32.0-36.0); MEAN CELL VOLUME 94.2 fl (80-96); MEAN PLT VOLUME 8.7 fl (7.5-11.1); NEUTROPHILS 61.3 % (42.8-82.8); PLATELET COUNT 256 K/MM3 (134-434); RDW 18.6 % (11.6-15.6); WHITE BLOOD COUNT 4.9 K/mm3 (4.0-10.0)
[2017-03-21] MEDS ORDERED: ONDANSETRON INJECTION 12 MG, DIPHENHYDRAMINE 25 MG, RANITIDINE INJECTION 50 MG in SODIU... IVPB ONE (10:00)
[2017-03-21] MEDS ORDERED: SODIUM CHLORIDE 250 ML IV ONE (10:00)
[2017-03-21] MEDS ORDERED: DEXAMETHASONE INJECTION 10 MG in SODIUM CHLORIDE 50 ML IVPB ONE (10:00)
[2017-03-21 10:23] LABS: ALK PHOS 134 U/L (45-117); ANION GAP 7 (8-16); BILIRUBIN,TOTAL 0.4 mg/dL (0.2-1.0); CALCIUM 9.2 mg/dL (8.5-10.1); CO2 29 mmol/L (21-32); CREATININE 0.8 mg/dL (0.55-1.02); GLUCOSE,RANDOM 117 mg/dL (74-106); MAGNESIUM 1.8 mg/dL (1.8-2.4); SGOT/AST 49 U/L (15-37); SGPT/ALT 31 U/L (12-78); TOT PROT 6.7 g/dl (6.4-8.2)
[2017-03-21] MEDS ORDERED: PACLITAXEL 126 MG in SODIUM CHLORIDE 250 ML IVPB ONE (10:30)
[2017-03-21 10:36] LABS: BILIRUBIN,DIRECT < 0.1 mg/dL (0.0-0.2)
[2017-03-21] MEDS ORDERED: PORTA CATH FLUSH 10 ML IVPUSH ONE (11:09)
[2017-03-21 14:23] VITALS: BP 132/83; PULSE 70; TEMP 98.4
== END 2017-03-21 14:33 | disposition home or self-care (01) ==
LOC: JONCCHEMO 07:28 → J7W 10:49 → JONCCHEMO 12:10
PROVIDERS: ATTEND Internal Medicine Hematology & Oncology
DX: Z51.11 Encounter for antineoplastic chemotherapy (principal); C50.919 Malignant neoplasm of unspecified site of unspecified female breast
CPT/HCPCS: 36415; 80053; 80076; 83735; 85025; 96361; 96367; 96375; 96413

== ENCOUNTER 2017-04-04 07:42 | Day surgery (SDC) | payer OTHER, MEDICARE ==
[2017-04-04] MEDS ORDERED: ONDANSETRON IVPB ONE (08:00)
[2017-04-04] MEDS ORDERED: DIPHENHYDRAMINE IVPB ONE (08:00)
[2017-04-04] MEDS ORDERED: [UNRECOGNIZED DRUG - OTHER] IVPB ONE (08:00)
[2017-04-04] MEDS ORDERED: DEXAMETHASONE IVPB ONE (08:00)
[2017-04-04] MEDS ORDERED: PACLITAXEL 126 MG in SODIUM CHLORIDE 250 ML IVPB ONE (08:30)
[2017-04-04] MEDS ORDERED: SODIUM CHLORIDE 250 ML IV ONE (09:30)
[2017-04-04 09:51] LABS: ANION GAP 9 (8-16); BILIRUBIN,TOTAL 0.6 mg/dL (0.2-1.0); CALCIUM 9.1 mg/dL (8.5-10.1); CO2 25 mmol/L (21-32); CREATININE 0.7 mg/dL (0.55-1.02); GLUCOSE,RANDOM 99 mg/dL (74-106); MAGNESIUM 2.1 mg/dL (1.8-2.4); SGOT/AST 66 U/L (15-37); SGPT/ALT 35 U/L (12-78)
[2017-04-04 09:52] LABS: ALK PHOS 134 U/L (45-117); TOT PROT 6.7 g/dl (6.4-8.2)
[2017-04-04 09:53] LABS: BILIRUBIN,DIRECT 0.1 mg/dL (0.0-0.2)
[2017-04-04] MEDS ORDERED: ZOLEDRONIC ACID 4 MG in SODIUM CHLORIDE 100 ML IVPB ONE (10:00)
[2017-04-04] MEDS ORDERED: PORTA CATH FLUSH 10 ML IVPUSH ONE (10:28)
[2017-04-04 10:51] LABS: BASOPHIL 2.6 % (0-2.0); EOSINOPHIL 1.1 % (0-4.5); MCHC 32.3 g/dl (32.0-36.0); MEAN CELL VOLUME 92.6 fl (80-96); MEAN PLT VOLUME 8.9 fl (7.5-11.1); NEUTROPHILS 58.5 % (42.8-82.8); PLATELET COUNT 244 K/MM3 (134-434); RDW 18.3 % (11.6-15.6); WHITE BLOOD COUNT 4.8 K/mm3 (4.0-10.0)
[2017-04-04 14:31] VITALS: BP 142/86; PULSE 87; TEMP 98.1
== END 2017-04-04 15:08 | disposition home or self-care (01) ==
LOC: JONCCHEMO 07:42 → J7W 10:07 → JONCCHEMO 15:08
PROVIDERS: ATTEND Internal Medicine Hematology & Oncology
PROC: 3E0S305 Introduction of Other Antineoplastic into Epidural Space, Percutaneous Approach (ICD-10-PCS; principal; 2017-04-04)
PROC: 3E043GC Introduction of Other Therapeutic Substance into Central Vein, Percutaneous Approach (ICD-10-PCS; 2017-04-04)
PROC: 3E0437Z Introduction of Electrolytic and Water Balance Substance into Central Vein, Percutaneous Approach (ICD-10-PCS; 2017-04-04)
DX: Z51.11 Encounter for antineoplastic chemotherapy (principal); C50.411 Malignant neoplasm of upper-outer quadrant of right female breast; C50.412 Malignant neoplasm of upper-outer quadrant of left female breast; C79.51 Secondary malignant neoplasm of bone; J91.0 Malignant pleural effusion
CPT/HCPCS: 96367; 96413; J9267; 36415; 80053; 80076; 83735; 85025; 96375; 96417; J3489

== ENCOUNTER 2017-04-24 07:29 | Day surgery (SDC) | payer OTHER, MEDICARE ==
[2017-04-24] MEDS ORDERED: DEXAMETHASONE INJECTION 10 MG in SODIUM CHLORIDE 50 ML IVPB ONE (08:00)
[2017-04-24] MEDS ORDERED: ONDANSETRON INJECTION 12 MG, DIPHENHYDRAMINE 25 MG, RANITIDINE INJECTION 50 MG in SODIU... IVPB ONE (08:00)
[2017-04-24] MEDS ORDERED: PACLITAXEL 126 MG in SODIUM CHLORIDE 250 ML IVPB ONE (08:30)
[2017-04-24] MEDS ORDERED: SODIUM CHLORIDE 250 ML IV ONE (09:30)
[2017-04-24] MEDS ORDERED: ZOLEDRONIC ACID 4 MG in SODIUM CHLORIDE 100 ML IVPB ONE (10:00)
[2017-04-24 10:45] LABS: BASOPHIL 0.9 % (0-2.0); EOSINOPHIL 0.5 % (0-4.5); MCH 29.6 pg (25.7-33.7); MCHC 32.4 g/dl (32.0-36.0); MEAN CELL VOLUME 91.6 fl (80-96); MEAN PLT VOLUME 9.2 fl (7.5-11.1); NEUTROPHILS 63.4 % (42.8-82.8); PLATELET COUNT 266 K/MM3 (134-434); RDW 18.4 % (11.6-15.6)
[2017-04-24 11:11] LABS: BILIRUBIN,DIRECT 0.2 mg/dL (0.0-0.2); BILIRUBIN,TOTAL 0.4 mg/dL (0.2-1.0); CALCIUM 8.4 mg/dL (8.5-10.1); CO2 27 mmol/L (21-32); CREATININE 0.8 mg/dL (0.55-1.02); GLUCOSE,RANDOM 90 mg/dL (74-106); SGOT/AST 63 U/L (15-37); SGPT/ALT 41 U/L (12-78); TOT PROT 7.2 g/dl (6.4-8.2)
[2017-04-24 11:12] LABS: ALK PHOS 168 U/L (45-117)
[2017-04-24 12:20] LABS: ANION GAP 9 (8-16)
[2017-04-24 16:13] VITALS: BP 106/69; PULSE 70; TEMP 97.9
== END 2017-04-24 16:38 | disposition home or self-care (01) ==
LOC: JONCCHEMO 07:29 → J7W 09:58 → JONCCHEMO 16:38
PROVIDERS: ATTEND Internal Medicine Hematology & Oncology
DX: Z51.11 Encounter for antineoplastic chemotherapy (principal); C50.411 Malignant neoplasm of upper-outer quadrant of right female breast; C50.412 Malignant neoplasm of upper-outer quadrant of left female breast; C79.51 Secondary malignant neoplasm of bone; J91.0 Malignant pleural effusion
CPT/HCPCS: 36415; 80048; 80076; 85025; 96367; 96375; 96413; 96417; J3489

== ENCOUNTER 2017-05-09 07:42 | Day surgery (SDC) | payer OTHER, MEDICARE ==
[2017-05-09 09:06] LABS: BASOPHIL 1.4 % (0-2.0); EOSINOPHIL 0.5 % (0-4.5); MCH 29.4 pg (25.7-33.7); MCHC 32.4 g/dl (32.0-36.0); MEAN CELL VOLUME 90.9 fl (80-96); MEAN PLT VOLUME 8.3 fl (7.5-11.1); NEUTROPHILS 58.1 % (42.8-82.8); PLATELET COUNT 267 K/MM3 (134-434); RDW 18.3 % (11.6-15.6); WHITE BLOOD COUNT 4.1 K/mm3 (4.0-10.0)
[2017-05-09 09:34] LABS: ANION GAP 8 (8-16); BILIRUBIN,DIRECT 0.2 mg/dL (0.0-0.2); BILIRUBIN,TOTAL 0.5 mg/dL (0.2-1.0); CALCIUM 9.1 mg/dL (8.5-10.1); CO2 28 mmol/L (21-32); CREATININE 0.8 mg/dL (0.55-1.02); GLUCOSE,RANDOM 123 mg/dL (74-106); MAGNESIUM 1.9 mg/dL (1.8-2.4); SGOT/AST 57 U/L (15-37); SGPT/ALT 34 U/L (12-78); TOT PROT 6.8 g/dl (6.4-8.2)
[2017-05-09 09:35] LABS: ALK PHOS 179 U/L (45-117)
[2017-05-09] MEDS ORDERED: ONDANSETRON INJECTION 12 MG, DIPHENHYDRAMINE 25 MG, RANITIDINE INJECTION 50 MG in SODIU... IVPB ONE (10:00)
[2017-05-09] MEDS ORDERED: DEXAMETHASONE INJECTION 10 MG in SODIUM CHLORIDE 50 ML IVPB ONE (10:00)
[2017-05-09] MEDS ORDERED: PACLITAXEL 126 MG in SODIUM CHLORIDE 250 ML IVPB ONE (10:30)
[2017-05-09] MEDS ORDERED: SODIUM CHLORIDE 250 ML IV ONE (11:30)
[2017-05-09 16:57] VITALS: BP 125/65; PULSE 63; TEMP 97.9
== END 2017-05-09 14:50 | disposition home or self-care (01) ==
LOC: JONCCHEMO 07:42 → J7W 09:51 → JONCCHEMO 14:50
PROVIDERS: ATTEND Internal Medicine Hematology & Oncology
PROC: 3E04305 Introduction of Other Antineoplastic into Central Vein, Percutaneous Approach (ICD-10-PCS; principal; 2017-05-09)
PROC: 3E0437Z Introduction of Electrolytic and Water Balance Substance into Central Vein, Percutaneous Approach (ICD-10-PCS; 2017-05-09)
DX: Z51.11 Encounter for antineoplastic chemotherapy (principal); C50.411 Malignant neoplasm of upper-outer quadrant of right female breast; C50.412 Malignant neoplasm of upper-outer quadrant of left female breast; C79.51 Secondary malignant neoplasm of bone; J91.0 Malignant pleural effusion
CPT/HCPCS: 96361; 96413; J9267; 36415; 80053; 80076; 82378; 83735; 85025; 86300

== ENCOUNTER 2017-05-23 07:41 | Day surgery (SDC) | payer OTHER, MEDICARE ==
[2017-05-23] MEDS ORDERED: ONDANSETRON INJECTION 12 MG, DIPHENHYDRAMINE 25 MG, RANITIDINE INJECTION 50 MG in SODIU... IVPB ONE (10:00)
[2017-05-23] MEDS ORDERED: DEXAMETHASONE INJECTION 10 MG in SODIUM CHLORIDE 50 ML IVPB ONE (10:00)
[2017-05-23] MEDS ORDERED: SODIUM CHLORIDE 250 ML IV ONE (10:00)
[2017-05-23 10:06] LABS: BASOPHIL 1.3 % (0-2.0); EOSINOPHIL 0.5 % (0-4.5); MCH 29.2 pg (25.7-33.7); MCHC 32.1 g/dl (32.0-36.0); MEAN CELL VOLUME 91.1 fl (80-96); MEAN PLT VOLUME 8.6 fl (7.5-11.1); NEUTROPHILS 59.1 % (42.8-82.8); PLATELET COUNT 250 K/MM3 (134-434)
[2017-05-23] MEDS ORDERED: PACLITAXEL 126 MG in SODIUM CHLORIDE 250 ML IVPB ONE (10:30)
[2017-05-23] MEDS ORDERED: ZOLEDRONIC ACID 4 MG in SODIUM CHLORIDE 100 ML IVPB ONE (11:30)
[2017-05-23 12:16] LABS: ALBUMIN 3.1 g/dl (3.4-5.0); ALK PHOS 225 U/L (45-117); ANION GAP 15 (8-16); BILIRUBIN,TOTAL 0.5 mg/dL (0.2-1.0); CALCIUM 9.2 mg/dL (8.5-10.1); CO2 17 mmol/L (21-32); CREATININE 0.8 mg/dL (0.55-1.02); GLUCOSE,RANDOM 102 mg/dL (74-106); SGOT/AST 83 U/L (15-37); SGPT/ALT 43 U/L (12-78); TOT PROT 7.4 g/dl (6.4-8.2)
[2017-05-23 12:21] LABS: BILIRUBIN,DIRECT 0.2 mg/dL (0.0-0.2)
[2017-05-23 15:57] VITALS: BP 113/71; PULSE 68; TEMP 98.1
== END 2017-05-23 15:00 | disposition home or self-care (01) ==
LOC: JONCCHEMO 07:41 → J7W 10:32 → JONCCHEMO 15:00
PROVIDERS: ATTEND Internal Medicine Hematology & Oncology
PROC: 3E04305 Introduction of Other Antineoplastic into Central Vein, Percutaneous Approach (ICD-10-PCS; principal; 2017-05-23)
PROC: 3E043GC Introduction of Other Therapeutic Substance into Central Vein, Percutaneous Approach (ICD-10-PCS; 2017-05-23)
PROC: 3E0337Z Introduction of Electrolytic and Water Balance Substance into Peripheral Vein, Percutaneous Approach (ICD-10-PCS; 2017-05-23)
DX: Z51.11 Encounter for antineoplastic chemotherapy (principal); C50.411 Malignant neoplasm of upper-outer quadrant of right female breast; C79.51 Secondary malignant neoplasm of bone; C50.412 Malignant neoplasm of upper-outer quadrant of left female breast
CPT/HCPCS: 96367; 96375; 96413; J9267; 36415; 80053; 80076; 82378; 83735; 85025; 86300; 96417; J3489

== ENCOUNTER 2017-06-06 07:41 | Day surgery (SDC) | payer OTHER, MEDICARE ==
[2017-06-06] MEDS ORDERED: ONDANSETRON INJECTION 12 MG, DIPHENHYDRAMINE 25 MG, RANITIDINE INJECTION 50 MG in SODIU... IVPB ONE (08:00)
[2017-06-06] MEDS ORDERED: DEXAMETHASONE INJECTION 10 MG in SODIUM CHLORIDE 50 ML IVPB ONE (08:00)
[2017-06-06] MEDS ORDERED: PACLITAXEL 126 MG in SODIUM CHLORIDE 250 ML IVPB ONE (08:30)
[2017-06-06] MEDS ORDERED: SODIUM CHLORIDE 250 ML IV ONE (09:30)
[2017-06-06 10:36] LABS: MCH 28.8 pg (25.7-33.7); MCHC 32.2 g/dl (32.0-36.0); MEAN CELL VOLUME 89.3 fl (80-96); MEAN PLT VOLUME 8.5 fl (7.5-11.1); PLATELET COUNT 221 K/MM3 (134-434); RDW 19.2 % (11.6-15.6); WHITE BLOOD COUNT 4.9 K/mm3 (4.0-10.0)
[2017-06-06 11:07] LABS: ALBUMIN 2.8 g/dl (3.4-5.0); ALK PHOS 232 U/L (45-117); ANION GAP 9 (8-16); BILIRUBIN,DIRECT 0.2 mg/dL (0.0-0.2); BILIRUBIN,TOTAL 0.5 mg/dL (0.2-1.0); CALCIUM 9.1 mg/dL (8.5-10.1); CO2 27 mmol/L (21-32); CREATININE 0.9 mg/dL (0.55-1.02); GLUCOSE,RANDOM 154 mg/dL (74-106); MAGNESIUM 1.9 mg/dL (1.8-2.4); SGOT/AST 65 U/L (15-37); SGPT/ALT 37 U/L (12-78); TOT PROT 6.7 g/dl (6.4-8.2)
[2017-06-06 12:21] LABS: BASOPHIL 1.5 % (0-2.0); EOSINOPHIL 0.3 % (0-4.5); NEUTROPHILS 62.9 % (42.8-82.8)
[2017-06-06 12:57] VITALS: TEMP 97.9
[2017-06-06] MEDS ORDERED: PORTA CATH FLUSH 10 ML IVPUSH ONE (17:58)
[2017-06-06 17:59] VITALS: BP 137/87; PULSE 90
== END 2017-06-06 14:10 | disposition home or self-care (01) ==
LOC: JONCCHEMO 07:41 → J7W 11:22 → JONCCHEMO 14:10
PROVIDERS: ATTEND Internal Medicine Hematology & Oncology
PROC: 3E04305 Introduction of Other Antineoplastic into Central Vein, Percutaneous Approach (ICD-10-PCS; principal; 2017-06-06)
PROC: 3E043GC Introduction of Other Therapeutic Substance into Central Vein, Percutaneous Approach (ICD-10-PCS; 2017-06-06)
PROC: 3E0437Z Introduction of Electrolytic and Water Balance Substance into Central Vein, Percutaneous Approach (ICD-10-PCS; 2017-06-06)
DX: Z51.11 Encounter for antineoplastic chemotherapy (principal); C50.411 Malignant neoplasm of upper-outer quadrant of right female breast; C50.412 Malignant neoplasm of upper-outer quadrant of left female breast; C79.51 Secondary malignant neoplasm of bone; J91.0 Malignant pleural effusion
CPT/HCPCS: 36415; 80053; 80076; 83735; 85025; 96367; 96375; 96413

== ENCOUNTER 2017-06-20 07:36 | Day surgery (SDC) | payer OTHER, MEDICARE ==
[2017-06-20] MEDS ORDERED: SODIUM CHLORIDE 250 ML IV ONE ×2 (08:00→09:30)
[2017-06-20] MEDS ORDERED: DEXAMETHASONE INJECTION 10 MG in SODIUM CHLORIDE 50 ML IVPB ONE (08:30)
[2017-06-20] MEDS ORDERED: ONDANSETRON INJECTION 12 MG in SODIUM CHLORIDE 50 ML IVPB ONE (08:30)
[2017-06-20] MEDS ORDERED: SODIUM CHLORIDE IV ONE (09:00)
[2017-06-20] MEDS ORDERED: GEMCITABINE HCL IV ONE (09:00)
[2017-06-20] MEDS ORDERED: ZOLEDRONIC ACID 4 MG in SODIUM CHLORIDE 100 ML IVPB ONE (10:30)
[2017-06-20 11:08] VITALS: TEMP 98.2
[2017-06-20 11:15] LABS: MCH 28.8 pg (25.7-33.7); MCHC 32.3 g/dl (32.0-36.0); MEAN CELL VOLUME 89.2 fl (80-96); MEAN PLT VOLUME 8.2 fl (7.5-11.1); PLATELET COUNT 249 K/MM3 (134-434); WHITE BLOOD COUNT 3.9 K/mm3 (4.0-10.0)
[2017-06-20 11:40] LABS: ALBUMIN 2.8 g/dl (3.4-5.0); ALK PHOS 258 U/L (45-117); ANION GAP 7 (8-16); BILIRUBIN,DIRECT 0.2 mg/dL (0.0-0.2); BILIRUBIN,TOTAL 0.4 mg/dL (0.2-1.0); CALCIUM 9.1 mg/dL (8.5-10.1); CO2 28 mmol/L (21-32); CREATININE 0.8 mg/dL (0.55-1.02); GLUCOSE,RANDOM 91 mg/dL (74-106); MAGNESIUM 1.9 mg/dL (1.8-2.4); SGOT/AST 65 U/L (15-37); SGPT/ALT 38 U/L (12-78); TOT PROT 6.8 g/dl (6.4-8.2)
[2017-06-20 14:53] LABS: PLATELET ESTIMATE ADEQUATE (NORMAL); TOTAL CELLS COUNTED 100
[2017-06-20] MEDS ORDERED: PORTA CATH FLUSH 10 ML IVPUSH ONE (18:08)
[2017-06-20 18:27] VITALS: BP 123/76; PULSE 72
== END 2017-06-20 17:05 | disposition home or self-care (01) ==
LOC: JONCCHEMO 07:36 → J7W 12:23 → JONCCHEMO 17:05
PROVIDERS: ATTEND Internal Medicine Hematology & Oncology
DX: Z51.11 Encounter for antineoplastic chemotherapy (principal); C50.412 Malignant neoplasm of upper-outer quadrant of left female breast; C79.51 Secondary malignant neoplasm of bone
CPT/HCPCS: 36415; 80053; 80076; 83735; 85025; 96361; 96367; 96375; 96413; 96417; J3489

== ENCOUNTER 2017-06-27 07:26 | Day surgery (SDC) | payer OTHER, MEDICARE ==
[2017-06-27] MEDS ORDERED: ONDANSETRON INJECTION 12 MG in SODIUM CHLORIDE 50 ML IVPB ONE (10:00)
[2017-06-27] MEDS ORDERED: SODIUM CHLORIDE 250 ML IV ONE ×2 (10:00→11:30)
[2017-06-27] MEDS ORDERED: DEXAMETHASONE INJECTION 10 MG in SODIUM CHLORIDE 50 ML IVPB ONE (10:00)
[2017-06-27 10:22] LABS: BASOPHIL 1.4 % (0-2.0); EOSINOPHIL 0.4 % (0-4.5); MCH 28.2 pg (25.7-33.7); MCHC 31.8 g/dl (32.0-36.0); MEAN CELL VOLUME 88.5 fl (80-96); MEAN PLT VOLUME 8.5 fl (7.5-11.1); PLATELET COUNT 220 K/MM3 (134-434); RDW 19.1 % (11.6-15.6); WHITE BLOOD COUNT 2.7 K/mm3 (4.0-10.0)
[2017-06-27] MEDS ORDERED: SODIUM CHLORIDE IV ONE ×2 (10:30→11:30)
[2017-06-27] MEDS ORDERED: GEMCITABINE HCL IV ONE ×2 (10:30→11:30)
[2017-06-27 10:49] LABS: ALBUMIN 2.9 g/dl (3.4-5.0); ALK PHOS 257 U/L (45-117); ANION GAP 4 (8-16); BILIRUBIN,DIRECT 0.3 mg/dL (0.0-0.2); BILIRUBIN,TOTAL 0.5 mg/dL (0.2-1.0); CO2 31 mmol/L (21-32); CREATININE 0.9 mg/dL (0.55-1.02); GLUCOSE,RANDOM 129 mg/dL (74-106); MAGNESIUM 1.9 mg/dL (1.8-2.4); SGOT/AST 124 U/L (15-37); SGPT/ALT 97 U/L (12-78); TOT PROT 7.1 g/dl (6.4-8.2)
[2017-06-27 15:28] VITALS: TEMP 97.7
[2017-06-27 15:38] VITALS: BP 114/56; PULSE 76
== END 2017-06-27 15:15 | disposition home or self-care (01) ==
LOC: JONCCHEMO 07:26 → J7W 11:42 → JONCCHEMO 15:15
PROVIDERS: ATTEND Internal Medicine Hematology & Oncology
DX: Z51.11 Encounter for antineoplastic chemotherapy (principal); C50.412 Malignant neoplasm of upper-outer quadrant of left female breast; C79.51 Secondary malignant neoplasm of bone
CPT/HCPCS: 36415; 80053; 80076; 83735; 85025; 96361; 96375; 96413

== ENCOUNTER 2017-07-11 07:37 | Day surgery (SDC) | payer OTHER, MEDICARE ==
[2017-07-11 09:50] LABS: BASOPHIL 1.4 % (0-2.0); EOSINOPHIL 1.1 % (0-4.5); MCH 29.3 pg (25.7-33.7); MCHC 32.5 g/dl (32.0-36.0); MEAN CELL VOLUME 90.1 fl (80-96); MEAN PLT VOLUME 8.7 fl (7.5-11.1); NEUTROPHILS 65.7 % (42.8-82.8); PLATELET COUNT 288 K/MM3 (134-434); RDW 21.8 % (11.6-15.6); WHITE BLOOD COUNT 5.1 K/mm3 (4.0-10.0)
[2017-07-11] MEDS ORDERED: ONDANSETRON INJECTION 12 MG in SODIUM CHLORIDE 50 ML IVPB ONE (10:00)
[2017-07-11] MEDS ORDERED: SODIUM CHLORIDE 250 ML IV ONE ×2 (10:00→11:00)
[2017-07-11] MEDS ORDERED: DEXAMETHASONE INJECTION 10 MG in SODIUM CHLORIDE 50 ML IVPB ONE (10:00)
[2017-07-11 10:18] LABS: ALBUMIN 2.8 g/dl (3.4-5.0); ALK PHOS 344 U/L (45-117); ANION GAP 7 (8-16); BILIRUBIN,DIRECT 0.3 mg/dL (0.0-0.2); BILIRUBIN,TOTAL 0.6 mg/dL (0.2-1.0); CALCIUM 8.3 mg/dL (8.5-10.1); CO2 26 mmol/L (21-32); CREATININE 0.8 mg/dL (0.55-1.02); GLUCOSE,RANDOM 118 mg/dL (74-106); SGPT/ALT 65 U/L (12-78); TOT PROT 6.9 g/dl (6.4-8.2)
[2017-07-11] MEDS ORDERED: GEMCITABINE HCL IV ONE (10:30)
[2017-07-11] MEDS ORDERED: SODIUM CHLORIDE IV ONE (10:30)
[2017-07-11 10:53] VITALS: TEMP 97.7
[2017-07-11 10:58] LABS: SGOT/AST 100 U/L (15-37)
[2017-07-11] MEDS ORDERED: ACETAMINOPHEN 325 MG TABLET (FP) PO ONE (11:15)
[2017-07-11] MEDS ORDERED: PORTA CATH FLUSH 10 ML IVPUSH ONE ×2 (12:00→13:54)
[2017-07-11 13:09] LABS: ANISOCYTOSIS 2+; HYPOCHROMIA 2+; MACROCYTOSIS 1+; TARGET CELLS 1+
[2017-07-11 14:35] VITALS: BP 149/89; PULSE 95
== END 2017-07-11 14:15 | disposition home or self-care (01) ==
LOC: JONCCHEMO 07:37 → J7W 10:38 → JONCCHEMO 14:15
PROVIDERS: ATTEND Internal Medicine Hematology & Oncology
DX: Z51.11 Encounter for antineoplastic chemotherapy (principal); C50.412 Malignant neoplasm of upper-outer quadrant of left female breast; C79.51 Secondary malignant neoplasm of bone
CPT/HCPCS: 36415; 80053; 80076; 83735; 85025; 96361; 96375; 96413

== ENCOUNTER 2017-07-18 06:52 | Day surgery (SDC) | payer OTHER, MEDICARE ==
[2017-07-18] MEDS ORDERED: ZOLEDRONIC ACID 4 MG in SODIUM CHLORIDE 100 ML IVPB ONE (09:00)
[2017-07-18] MEDS ORDERED: ONDANSETRON INJECTION 12 MG in SODIUM CHLORIDE 50 ML IVPB ONE (10:00)
[2017-07-18] MEDS ORDERED: SODIUM CHLORIDE 250 ML IV ONE ×2 (10:00→11:00)
[2017-07-18] MEDS ORDERED: DEXAMETHASONE INJECTION 10 MG in SODIUM CHLORIDE 50 ML IVPB ONE (10:00)
[2017-07-18] MEDS ORDERED: GEMCITABINE HCL IV ONE (10:30)
[2017-07-18] MEDS ORDERED: SODIUM CHLORIDE IV ONE (10:30)
[2017-07-18 10:35] LABS: MCH 29.2 pg (25.7-33.7); MCHC 32.6 g/dl (32.0-36.0); MEAN CELL VOLUME 89.6 fl (80-96); MEAN PLT VOLUME 7.9 fl (7.5-11.1); PLATELET COUNT 403 K/MM3 (134-434); WHITE BLOOD COUNT 3.5 K/mm3 (4.0-10.0)
[2017-07-18 10:56] LABS: ALBUMIN 2.8 g/dl (3.4-5.0); ANION GAP 6 (8-16); BILIRUBIN,TOTAL 0.8 mg/dL (0.2-1.0); CO2 29 mmol/L (21-32); CREATININE 0.8 mg/dL (0.55-1.02); GLUCOSE,RANDOM 142 mg/dL (74-106); SGOT/AST 164 U/L (15-37); TOT PROT 6.9 g/dl (6.4-8.2)
[2017-07-18 11:02] LABS: ALK PHOS 386 U/L (45-117); BILIRUBIN,DIRECT 0.5 mg/dL (0.0-0.2); SGPT/ALT 120 U/L (12-78)
[2017-07-18 12:18] LABS: METAMYELOCYTE 3 % (0-2); TOTAL CELLS COUNTED 100
[2017-07-18 12:19] LABS: PLATELET ESTIMATE ADEQUATE (NORMAL)
[2017-07-18 17:01] VITALS: TEMP 97.9
[2017-07-18] MEDS ORDERED: PORTA CATH FLUSH 10 ML IVPUSH ONE (17:01)
[2017-07-18 17:04] VITALS: BP 112/75; PULSE 85
== END 2017-07-18 16:30 | disposition home or self-care (01) ==
LOC: JONCCHEMO 06:52 → J7W 11:03 → JONCCHEMO 16:30
PROVIDERS: ATTEND Internal Medicine Hematology & Oncology
DX: Z51.11 Encounter for antineoplastic chemotherapy (principal); C50.412 Malignant neoplasm of upper-outer quadrant of left female breast; C79.51 Secondary malignant neoplasm of bone
CPT/HCPCS: 36415; 80053; 80076; 83735; 85025; 96361; 96375; 96413; 96417; J3489

== ENCOUNTER 2017-08-08 06:47 | Day surgery (SDC) | payer OTHER, MEDICARE ==
[2017-08-08] MEDS ORDERED: SODIUM CHLORIDE 250 ML IV ONE ×2 (08:00→09:30)
[2017-08-08] MEDS ORDERED: ONDANSETRON INJECTION 12 MG in SODIUM CHLORIDE 50 ML IVPB ONE (08:30)
[2017-08-08] MEDS ORDERED: DEXAMETHASONE INJECTION 10 MG in SODIUM CHLORIDE 50 ML IVPB ONE (08:30)
[2017-08-08] MEDS ORDERED: GEMCITABINE HCL IV ONE (09:00)
[2017-08-08] MEDS ORDERED: SODIUM CHLORIDE IV ONE (09:00)
[2017-08-08 09:34] LABS: MCH 30.8 pg (25.7-33.7); MCHC 33.4 g/dl (32.0-36.0); MEAN CELL VOLUME 92.3 fl (80-96); MEAN PLT VOLUME 8.4 fl (7.5-11.1); PLATELET COUNT 370 K/MM3 (134-434); RDW 24.2 % (11.6-15.6); WHITE BLOOD COUNT 3.9 K/mm3 (4.0-10.0)
[2017-08-08 10:06] LABS: ALBUMIN 2.5 g/dl (3.4-5.0); ALK PHOS 487 U/L (45-117); ANION GAP 12 (8-16); BILIRUBIN,DIRECT 3.2 mg/dL (0.0-0.2); BILIRUBIN,TOTAL 3.6 mg/dL (0.2-1.0); CALCIUM 8.5 mg/dL (8.5-10.1); CO2 23 mmol/L (21-32); CREATININE 0.9 mg/dL (0.55-1.02); GLUCOSE,RANDOM 161 mg/dL (74-106); MAGNESIUM 1.9 mg/dL (1.8-2.4); SGOT/AST 277 U/L (15-37); SGPT/ALT 138 U/L (12-78); TOT PROT 6.7 g/dl (6.4-8.2)
[2017-08-08 11:16] VITALS: TEMP 97.7
[2017-08-08] MEDS ORDERED: PORTA CATH FLUSH 10 ML IVPUSH ONE (11:20)
[2017-08-08 12:49] LABS: PLATELET ESTIMATE ADEQUATE; TOTAL CELLS COUNTED 100
[2017-08-08 13:46] VITALS: BP 111/66; PULSE 84
== END 2017-08-08 13:55 | disposition home or self-care (01) ==
LOC: JONCCHEMO 06:47 → J7W 10:16 → JONCCHEMO 13:55
PROVIDERS: ATTEND Internal Medicine Hematology & Oncology
DX: Z12.11 Encounter for screening for malignant neoplasm of colon (principal); C50.412 Malignant neoplasm of upper-outer quadrant of left female breast; C79.51 Secondary malignant neoplasm of bone
CPT/HCPCS: 36415; 80053; 80076; 83735; 85025; 96361; 96367; 96375; 96413

== ENCOUNTER 2017-08-22 07:29 | Day surgery (SDC) | payer OTHER, MEDICARE ==
[2017-08-22] MEDS ORDERED: SODIUM CHLORIDE 250 ML IV ONE ×2 (08:00→09:30)
[2017-08-22] MEDS ORDERED: ONDANSETRON INJECTION 12 MG, DEXAMETHASONE INJECTION 10 MG in SODIUM CHLORIDE 100 ML IVPB ONE (08:30)
[2017-08-22] MEDS ORDERED: GEMCITABINE HCL IV ONE (09:00)
[2017-08-22] MEDS ORDERED: SODIUM CHLORIDE IV ONE (09:00)
[2017-08-22 09:51] LABS: BASOPHIL 2.5 % (0-2.0); EOSINOPHIL 0.1 % (0-4.5); MEAN CELL VOLUME 96.8 fl (80-96); MEAN PLT VOLUME 9.2 fl (7.5-11.1); NEUTROPHILS 62.9 % (42.8-82.8); PLATELET COUNT 351 K/MM3 (134-434); RDW 25.9 % (11.6-15.6); WHITE BLOOD COUNT 9.4 K/mm3 (4.0-10.0)
[2017-08-22 09:58] LABS: ALBUMIN 2.4 g/dl (3.4-5.0); ANION GAP 9 (8-16); CALCIUM 8.1 mg/dL (8.5-10.1); CO2 25 mmol/L (21-32); GLUCOSE,RANDOM 132 mg/dL (74-106)
[2017-08-22 10:02] LABS: ALK PHOS 579 U/L (45-117); BILIRUBIN,TOTAL 8.2 mg/dL (0.2-1.0); CREATININE 0.9 mg/dL (0.55-1.02); SGOT/AST 247 U/L (15-37); SGPT/ALT 104 U/L (12-78); TOT PROT 6.4 g/dl (6.4-8.2)
[2017-08-22] MEDS ORDERED: ZOLEDRONIC ACID 4 MG in SODIUM CHLORIDE 100 ML IVPB ONE (10:30)
[2017-08-22 10:46] LABS: BILIRUBIN,DIRECT 6.9 mg/dL (0.0-0.2)
[2017-08-22 16:50] VITALS: BP 120/74; PULSE 84; TEMP 97.9
== END 2017-08-22 17:00 | disposition home or self-care (01) ==
LOC: JONCCHEMO 07:29 → J7W 10:17 → JONCCHEMO 17:00
PROVIDERS: ATTEND Internal Medicine Hematology & Oncology
DX: Z51.11 Encounter for antineoplastic chemotherapy (principal); C50.412 Malignant neoplasm of upper-outer quadrant of left female breast; C79.51 Secondary malignant neoplasm of bone
CPT/HCPCS: 36415; 80053; 80076; 82378; 83735; 85025; 86300; 96361; 96367; 96375; 96413; 96417; J3489

== ENCOUNTER 2017-08-29 11:29 | Inpatient (IN) | payer OTHER, MEDICARE ==
--- NOTE | 2017-08-29 11:38 | PDOC ---
History of Present Illness - General History Source: Patient, Primary Care Provider (Dr. Smith) Exam Limitations: Other (Conversational dyspnea) - History of Present Illness Initial Comments: 08/29/17 12:39 The patient is a 72 year old female with a significant PMH of HTN, fibromyalgia , metastatic breast CA with malignant pleural effusion (on Chemo) and 3L of home O2 use who presents to the emergency department after being sent by Dr. Smith from upstairs for evaluation of a low blood pressure (60/40) and a tachycardic rate (125). The patient also reports leg swelling and reduced appetite with unclear onset. This patient history is limited. The patient denies chest pain, shortness of breath, headache and dizziness. Denies fever, chills, nausea, vomit, diarrhea and constipation. Denies dysuria, frequency, urgency and hematuria. Allergies: NKA Past surgical history: Thoracentesis. Social history: Former smoker. No reported alcohol or drug use. PCP: Dr. Wei Oncologist: Dr. Smith <Jeff Worley - Last Filed: 08/29/17 12:38> <Farhana Alba - Last Filed: 08/29/17 14:56> - General Stated Complaint: Weakness Time Seen by Provider: 08/29/17 11:38 Past History <Jeff Worley - Last Filed: 08/29/17 12:38> - Past Medical History Anemia: Yes Asthma: No Cancer: Yes (BREAST CA BILATERAL, METS TO BONE) Cardiac Disorders: No CVA: No COPD: No CHF: No Dementia: No Diabetes: Yes GI Disorders: No Disorders: No HTN: Yes Hypercholesterolemia: No Liver Disease: No Seizures: No Thyroid Disease: No - Surgical History Abdominal Surgery: No Appendectomy: No Cardiac Surgery: No Cholecystectomy: No Lung Surgery: Yes (thoracentesis) Neurologic Surgery: No Orthopedic Surgery: No - Immunization History Immunization Up to Date: Yes - Suicide/Smoking/Psychosocial Hx Smoking History: Former smoker Have you smoked in the past 12 months: No If you are a former smoker, when did you quit?: 1989 Hx Alcohol Use: No Drug/Substance Use Hx: No Substance Use Type: None Hx Substance Use Treatment: No <Farhana Alba - Last Filed: 08/29/17 14:56> - Past Medical History Allergies/Adverse Reactions: Allergies Allergy/AdvReac Type Severity Reaction Status Date / Time No Known Drug Allergies Allergy Verified 08/29/17 11:40 Home Medications: Ambulatory Orders Xalatan 0.005% Eye Drops - 1 drop OU HS 09/01/16 Sitagliptin Phos/Metformin HCl [Janumet Xr 50-500 mg Tablet] 1 each PO DAILY Furosemide 20 mg PO DAILY 02/28/17 Potassium 1 tab PO DAILY 08/06/17 Review of Systems - Review of Systems Able to Perform ROS?: Yes Comments:: 08/29/17 12:39 GENERAL/CONSTITUTIONAL: No fever or chills. No weakness. HEAD, EYES, EARS, NOSE AND THROAT: No change in vision. No ear pain or discharge. No sore throat. CARDIOVASCULAR: No chest pain or shortness of breath. RESPIRATORY: No cough, wheezing, or hemoptysis. GASTROINTESTINAL: No nausea, vomiting, diarrhea or constipation. GENITOURINARY: No dysuria, frequency, or change in urination. MUSCULOSKELETAL: No joint or muscle swelling or pain. No neck or back pain. SKIN: No rash NEUROLOGIC: No headache, vertigo, loss of consciousness, or change in strength/ sensation. ENDOCRINE: No increased thirst. No abnormal weight change. HEMATOLOGIC/LYMPHATIC: No anemia, easy bleeding, or history of blood clots. ALLERGIC/IMMUNOLOGIC: No hives or skin allergy. <Jeff Worley - Last Filed: 08/29/17 12:38> *Physical Exam - Vital Signs Last Vital Signs Temp Pulse Resp BP Pulse Ox 97.8 F 120 H 26 H 92/65 97 08/29/17 11:41 08/29/17 11:47 08/29/17 11:41 08/29/17 11:41 08/29/17 11:47 - Physical Exam Comments: 08/29/17 12:39 GENERAL: (+) Jaundiced. (+) Conversational dyspnea. Awake, alert, and fully oriented. HEAD: No signs of trauma EYES: (+) Sclera icteric. PERRLA, EOMI, conjunctiva clear ENT: (+) Dry mucosa. Auricles normal inspection, hearing grossly normal, nares patent, oropharynx clear without exudates. NECK: Normal ROM, supple, no lymphadenopathy, JVD, or masses LUNGS: (+) Diminished breath sounds bilaterally. (+) Tachypneic. No wheezes, no crackles. HEART: (+) Tachycardic. (+) Port in right chest. Regular rhythm, normal S1 and S2, no murmurs, rubs or gallops ABDOMEN: (+) Palpable bladder. Soft, normoactive bowel sounds. No guarding, no rebound. No masses EXTREMITIES: (+) +2 pitting edema bilaterally to lower extremities. (+) Bilateral anasarca. Normal range of motion. No clubbing or cyanosis. No cords, erythema, or tenderness NEUROLOGICAL: Cranial nerves II through XII grossly intact. Normal speech. SKIN: (+) Skin changes from breast CA. Warm, Dry, normal turgor, no lesions noted. <Jeff Worley - Last Filed: 08/29/17 12:38> ED Treatment Course - LABORATORY CBC & Chemistry Diagram: 08/29/17 12:16 08/29/17 12:15 <Jeff Worley - Last Filed: 08/29/17 12:38> - LABORATORY CBC & Chemistry Diagram: 08/29/17 12:16 08/29/17 12:15 <Farhana Alba - Last Filed: 08/29/17 14:56> Medical Decision Making - Critical Care Time Total Critical Care Time (minutes): 60 Critical Care Statement: The care of this patient involved high complexity decision making to prevent further life threatening deterioration of the patient 's condition and/or to evaluate & treat vital organ system(s) failure or risk of failure. - Medical Decision Making 08/29/17 13:43 a/p: 72yo female with metastic breast ca presents with hypotension -will check sepsis labs -will start abx -ultrasounds -new onset jaundice -cultures -admission 08/29/17 13:44 lab called to say lactate 10.3 08/29/17 14:18 ultrasounds negative for clot cxr without acute findings abx started will repeat lactate elevated tbili pt will need to be admitted call placed to [facility] and Dr. Jolley. pt agreeable to stay for further eval 08/29/17 14:[address] Jolley who accepts pt [facility] 08/29/17 14:54 case discussed with IM resident [facility]ron who accept pt to service and ICU. <Farhana Alba - Last Filed: 08/29/17 14:56> *DC/Admit/Observation/Transfer - Attestations Scribe Attestion: 08/29/17 12:40 Documentation prepared by Jeff Worley, acting as biomedical electronics technician for Farhana Alba DO. <Jeff Worley - Last Filed: 08/29/17 12:38> - Discharge Dispostion Admit: Yes - Attestations Physician Attestion: 08/29/17 14:55 I, Dr. Farhana Alba DO, attest that this document has been prepared under my direction and personally reviewed by me in its entirety. I further attest, that it accurately reflects all work, treatment, procedures and medical decision -making performed by me. <Farhana Alba - Last Filed: 08/29/17 14:56> Diagnosis at time of Disposition: Hyperbilirubinemia, Metastasis from breast cancer, Sepsis - Discharge Dispostion Condition at time of disposition: Critical - Referrals Referrals: Tylor Smith MD [Primary Care Provider] - - Patient Instructions - Post Discharge Activity
[2017-08-29] MEDS ORDERED: SODIUM CHLORIDE 1,000 ML IV ONE (11:40)
[2017-08-29 11:45] VITALS: BMI 28.8
[2017-08-29] MEDS ORDERED: SODIUM CHLORIDE IV ONE (12:15)
[2017-08-29] MEDS ORDERED: morphine SULFATE 4 MG/ML VIAL ONE (12:34)
[2017-08-29 12:40] LABS: INR 3.3 (0.82-1.09); PROTHROMBIN TIME (PATIENT) 37.3 SEC (9.98-11.88)
[2017-08-29 12:42] LABS: ACTIVATED PTT 59.3 SECONDS (26.9-34.4)
[2017-08-29 12:43] LABS: ARTERIAL BLD GAS O2 SATURATION 97.5 % (90-98.9); ARTERIAL BLOOD GAS BASE EXCESS -8.8 meq/l (-2-2); ARTERIAL BLOOD GAS HCO3 14.5 meq/L (22-26); ARTERIAL BLOOD GAS pH 7.38 (7.35-7.45)
[2017-08-29 12:45] LABS: ALLENS TEST POSITIVE; ART PUNCT SITE RIGHT RADIAL
[2017-08-29 12:46] LABS: LPM/O2% 2; PT. ON O2? YES; TYPE OF O2 N/C
[2017-08-29 12:47] LABS: METHEMOGLOBIN 0.3 % (0.4-1.5)
[2017-08-29] MEDS ORDERED: morphine CARPU-JECT 2 MG/1 ML DISP.SYRIN IVPUSH ONE (12:47)
[2017-08-29 13:06] LABS: URINE APPEARANCE CLOUDY; URINE BLOOD 1+ (NEGATIVE); URINE COLOR AMBER; URINE GLUCOSE (UA) 1+ (NEGATIVE); URINE KETONE TRACE (NEGATIVE); URINE LEUK ESTERASE NEGATIVE (NEGATIVE); URINE NITRITE NEGATIVE (NEGATIVE); URINE UROBILINOGEN 4.0 E.U/dl mg/dL (0.2-1.0)
[2017-08-29 13:07] LABS: MCHC 32.5 g/dl (32.0-36.0); MEAN CELL VOLUME 98.4 fl (80-96); RDW 25.7 % (11.6-15.6)
[2017-08-29 13:08] LABS: MEAN PLT VOLUME 8.9 fl (7.5-11.1); PLATELET COUNT 249 K/MM3 (134-434)
[2017-08-29 13:39] LABS: ALBUMIN 1.8 g/dl (3.4-5.0); ANION GAP 21 (8-16); CALCIUM 8.1 mg/dL (8.5-10.1); CO2 15 mmol/L (21-32); CREATININE 1.4 mg/dL (0.55-1.02); GLUCOSE,RANDOM 58 mg/dL (74-106); SGPT/ALT 92 U/L (12-78); TOT PROT 5.5 g/dl (6.4-8.2)
[2017-08-29 13:43] LABS: ALK PHOS 360 U/L (45-117); CPK 48 IU/L (26-192); TROPONIN I < 0.02 ng/ml (0.00-0.05)
[2017-08-29] MEDS ORDERED: VANCOMYCIN 1 GRAM (PRE-DOCKED) 1,000 MG/250 ML BAG IVPB ONE ×2 (13:44→14:38)
[2017-08-29] MEDS ORDERED: PIPERACILLIN/TAZOB 4.5 GM/100 ML PRE-DOCKED IVPB ONE (13:44)
[2017-08-29 13:46] LABS: MAGNESIUM 1.9 mg/dL (1.8-2.4); SGOT/AST 203 U/L (15-37)
[2017-08-29 13:47] LABS: URINE PROTEIN 1+ (NEGATIVE)
[2017-08-29 13:50] LABS: URINE MUCUS RARE; URINE RBC 1 /hpf (0-3); URINE WBC 16 /hpf (3-5)
[2017-08-29] MEDS ORDERED: PIPERACILLIN/TAZOB 4.5 GM 4.5 GM/100 ML BAG IVPB ONE (13:59)
[2017-08-29 14:16] LABS: METAMYELOCYTE 6 % (0-2); MYELOCYTE 1 % (0-2); TOTAL CELLS COUNTED 100
[2017-08-29 14:17] LABS: PLATELET ESTIMATE ADEQUATE
[2017-08-29 14:22] LABS: NUCLEATED RED BLOOD CELL 14 % (0-0); WHITE BLOOD COUNT 7.6 K/mm3 (4.0-10.0)
[2017-08-29 14:23] LABS: ANISOCYTOSIS 4+; MACROCYTOSIS 3+; MICROCYTOSIS 1+; TARGET CELLS 3+
--- NOTE | 2017-08-29 15:22 | HP ---
CHIEF COMPLAINT: fatigue PCP: Dr. Wei Information source: Patient, limited history given fatigue/cooperation HISTORY OF PRESENT ILLNESS: 72 yo woman with pmh of HTN, fibromyalgia, and metastatic breast cancer (bone mets; liver?), with chronic pleural effusions who presents with one week of worsening fatigue s/p chemo tx, found to be hypotensive to 60/40 in during outpt f/u appointment at Dr. Smith's office in [facility], sent to ED. Pt states she received chemotherapy one week ago and endorses significant fatigue and malaise since tx. She denies any DINERO/dizziness, fever/chills, cough, SOB, CP, N/V, diarrhea, abdominal pain, throat pain, rhinorrhea, dysuria or new rashes at this time or on presentation. Found to be hypotensive during office visit and sent to ED from [facility]. Pt has received multiple rounds of chemotx for metastatic breast Ca. She has never had an infection after receiving chemo before and states she was hospitalized for an infection only once, but was unable to give further details. She lives at home, with no [employer] or visiting nurse. She denies any sick contacts, recent travel or changes in diet. She endorses decreased PO intake and endorses the fatigue/malaise she has been feeling is fairly consistent with her normal post-chemo tx course. ER course was notable for: (1)WBC 7.6, lactate of 10, Total bili of 15 (2)Tachy to 128, BP 92/65 (3)ABG 7.38/25/94/14.5 (4) CXR w/ BL large pleural effusions Recent Travel: None PAST MEDICAL HISTORY: Breast cancer w/ bone mets (currently on chem) Fibromyalgia HTN DM PAST SURGICAL HISTORY: Thoracentesis Social History: Smoking: Former smoker, quit in 1989 Alcohol: no Drugs: no Family History: Noncontributory Allergies No Known Drug Allergies Allergy (Verified 08/29/17 11:40) HOME MEDICATIONS: Home Medications Medication Instructions Recorded Xalatan 0.005% Eye Drops - 1 drop OU HS 09/01/16 Sitagliptin Phos/Metformin HCl 1 each PO DAILY 11/08/16 [Janumet Xr 50-500 mg Tablet] Furosemide 20 mg PO DAILY 02/28/17 Potassium 1 tab PO DAILY 08/06/17 REVIEW OF SYSTEMS CONSTITUTIONAL: generalized weakness, malaise, Absent: fever, chills, diaphoresis, loss of appetite, weight change HEENT: Absent: rhinorrhea, nasal congestion, throat pain, throat swelling, difficulty swallowing, visual changes CARDIOVASCULAR: peripheral edema Absent: chest pain, syncope, palpitations, irregular heart rate, lightheadedness , RESPIRATORY: Absent: cough, shortness of breath, dyspnea with exertion, orthopnea, wheezing, stridor, hemoptysis GASTROINTESTINAL: abdominal distension, Absent: abdominal pain, nausea, vomiting, diarrhea, constipation GENITOURINARY: Absent: dysuria, frequency, urgency, hesitancy, hematuria, flank pain, genital pain MUSCULOSKELETAL: Absent: myalgia, arthralgia, joint swelling, back pain, neck pain SKIN: Absent: rash, itching, pallor NEUROLOGIC: Absent: headache, focal weakness or paresthesias, dizziness, unsteady gait, seizure, mental status changes, bladder or bowel incontinence PHYSICAL EXAMINATION Vital Signs - 24 hr 08/29/17 08/29/17 08/29/17 11:41 11:46 11:47 Temperature 97.8 F Pulse Rate 121 H 120 H Pulse Rate [ Apical] Respiratory 26 H Rate Blood Pressure 92/65 Blood Pressure [Left Arm] O2 Sat by Pulse 97 97 97 Oximetry (%) 08/29/17 14:01 Temperature Pulse Rate Pulse Rate [ 114 H Apical] Respiratory 22 Rate Blood Pressure Blood Pressure 85/61 [Left Arm] O2 Sat by Pulse 98 Oximetry (%) GENERAL: Awake, alert, and fully oriented. Elderly woman, somnolent, tachypneic in mild distress HEAD: Normal with no signs of trauma. Jaundiced EYES: Pupils equal, round and reactive to light, extraocular movements intact, sclera icteric. No lid lag. EARS, NOSE, THROAT: Ears normal, nares patent, oropharynx clear without exudates , jaundice in sublingual surface. Moist mucous membranes. No thrush or oral lesions noted. NECK: Normal range of motion, supple without lymphadenopathy, JVD, or masses. LUNGS: Decreased breath sounds at bases. Tachypneic. No wheezes and no crackles. No accessory muscle use. HEART: Tachycardic, regular rate and rhythm, normal S1 and S2 without murmur, rub or gallop. R port in upper chest. Bilateral mastectomy, with diffuse necrotic petechial scar/chronic skin changes. ABDOMEN: Soft, nontender, distended, hypoactive bowel bowel sounds, no guarding , no rebound. Significant hepatomegaly. + fluid wave shift. negative murphys. MUSCULOSKELETAL: Normal range of motion at all joints. No bony deformities or tenderness. Mild CVA tenderness in R flank. UPPER EXTREMITIES: 2+ pulses, warm, well-perfused. No cyanosis. No clubbing. +1 peripheral edema. 4/5 strength in biceps flexion, 5/5 triceps extension BL. 2+ biceps reflexes. LOWER EXTREMITIES: 2+ PT, 1+ DP pulse BL. 2+ pitting edema bilaterally. Warm, well-perfused. No calf tenderness. No peripheral edema. 5/5 dorsi/ plantarflexion BL. 2+ patellar reflexes. Preserved sensation to touch BL NEUROLOGICAL: Cranial nerves II-XII intact. Normal speech. Gait not evaluated. PSYCHIATRIC: Cooperative. Good eye contact. Appropriate mood and affect. SKIN: Diffuse, pronounced jaundice. BL anterior chest punctate necrotic rash. Laboratory Results - last 24 hr CBC, BMP 08/29/17 12:16 08/29/17 12:15 08/29/17 08/29/17 08/29/17 11:39 12:15 12:15 WBC Corrected WBC (auto) RBC Hgb Hct MCV MCH MCHC RDW Plt Count MPV Total Counted Neutrophils % Neutrophils % (Manual) Band Neutrophils % Lymphocytes % Lymphocytes % (Manual) Monocytes % (Manual) Myelocytes % (Man) Nucleated RBC % Metamyelocytes Platelet Estimate Anisocytosis Microcytosis Macrocytosis Target Cells PT with INR INR PTT (Actin FS) Puncture Site ABG pH ABG pCO2 at Pt Temp ABG pO2 at Pt Temp ABG HCO3 ABG O2 Sat (Measured) ABG O2 Content ABG Base Excess Tomas Test Carboxyhemoglobin Methemoglobin O2 Delivery Device Oxygen Flow Rate Sodium 135 L Potassium 4.5 Chloride 99 Carbon Dioxide 15 L D Anion Gap 21 H BUN 21 H D Creatinine 1.4 H D Creat Clearance w eGFR 37.18 Random Glucose 58 L D Lactic Acid 10.3 H* Calcium 8.1 L Magnesium 1.9 Total Bilirubin 15.0 H D AST 203 H ALT 92 H Alkaline Phosphatase 360 H D Creatine Kinase 48 Troponin I < 0.02 Total Protein 5.5 L Albumin 1.8 L D Lipase 51 L Urine Color Urine Appearance Urine pH Ur Specific Lambert Urine Protein Urine Glucose (UA) Urine Ketones Urine Blood Urine Nitrite Urine Bilirubin Urine Urobilinogen Urine WBC (Auto) Urine RBC (Auto) Urine Mucus Blood Type O POSITIVE Antibody Screen Positive H Antibody Identification TNP 08/29/17 08/29/17 08/29/17 12:16 12:16 12:21 WBC 7.6 Corrected WBC (auto) 6.67 RBC 3.49 L Hgb 11.1 Hct 34.3 MCV 98.4 H MCH 32.0 MCHC 32.5 RDW 25.7 H Plt Count 249 D MPV 8.9 Total Counted 100 Neutrophils % No Result Required. Neutrophils % (Manual) 52.0 Band Neutrophils % 20.0 Lymphocytes % No Result Required. Lymphocytes % (Manual) 16.0 D Monocytes % (Manual) 5 Myelocytes % (Man) 1 Nucleated RBC % 14 H* Metamyelocytes 6 H D Platelet Estimate Adequate Anisocytosis 4+ Microcytosis 1+ Macrocytosis 3+ Target Cells 3+ PT with INR 37.30 H INR 3.30 H D PTT (Actin FS) 59.3 H D Puncture Site ABG pH ABG pCO2 at Pt Temp ABG pO2 at Pt Temp ABG HCO3 ABG O2 Sat (Measured) ABG O2 Content ABG Base Excess Tomas Test Carboxyhemoglobin Methemoglobin O2 Delivery Device Oxygen Flow Rate Sodium Potassium Chloride Carbon Dioxide Anion Gap BUN Creatinine Creat Clearance w eGFR Random Glucose Lactic Acid Calcium Magnesium Total Bilirubin AST ALT Alkaline Phosphatase Creatine Kinase Troponin I Total Protein Albumin Lipase Urine Color Alisha Urine Appearance Cloudy Urine pH 5.0 Ur Specific Lambert 1.024 Urine Protein 1+ H Urine Glucose (UA) 1+ H Urine Ketones Trace H Urine Blood 1+ H Urine Nitrite Negative Urine Bilirubin 4.0 Urine Urobilinogen 4.0 e.u/dl H Urine WBC (Auto) 16 Urine RBC (Auto) 1 Urine Mucus Rare Blood Type Antibody Screen Antibody Identification 08/29/17 08/29/17 12:34 12:34 WBC Corrected WBC (auto) RBC Hgb Hct MCV MCH MCHC RDW Plt Count MPV Total Counted Neutrophils % Neutrophils % (Manual) Band Neutrophils % Lymphocytes % Lymphocytes % (Manual) Monocytes % (Manual) Myelocytes % (Man) Nucleated RBC % Metamyelocytes Platelet Estimate Anisocytosis Microcytosis Macrocytosis Target Cells PT with INR INR PTT (Actin FS) Puncture Site Right radial ABG pH 7.38 ABG pCO2 at Pt Temp 25.0 L ABG pO2 at Pt Temp 94.0 ABG HCO3 14.5 L* ABG O2 Sat (Measured) 97.5 ABG O2 Content 15.5 ABG Base Excess -8.8 L Tomas Test Positive Carboxyhemoglobin 1.5 Methemoglobin 0.3 L O2 Delivery Device N/c Oxygen Flow Rate 2 Sodium Potassium Chloride Carbon Dioxide Anion Gap BUN Creatinine Creat Clearance w eGFR Random Glucose Lactic Acid Calcium Magnesium Total Bilirubin AST ALT Alkaline Phosphatase Creatine Kinase Troponin I Total Protein Albumin Lipase Urine Color Urine Appearance Urine pH Ur Specific Lambert Urine Protein Urine Glucose (UA) Urine Ketones Urine Blood Urine Nitrite Urine Bilirubin Urine Urobilinogen Urine WBC (Auto) Urine RBC (Auto) Urine Mucus Blood Type Antibody Screen Antibody Identification Micro: Urine, blood, port cx pending CXR 08/29 - Since 08/08/2017, the bilateral pulmonary and pleural changes with right port persist. LE Duplex 08/29: Negative for DVTs CT scan of chest/abdomen 08/29 - 1. Moderate bilateral pleural effusions with loculations as described above. 2. Atelectatic changes of both lower lobes. 3. Ascites. 4. Heterogeneous liver consistent with diffuse metastases, although discrete lesions cannot be delineated without intravenous contrast. 5. Anasarca. 6. Extensive sclerotic bony metastases. Please see above discussion. ASSESSMENT/PLAN: 72 yo woman with pmh of HTN, fibromyalgia, and metastatic breast cancer (bone mets; liver?), with chronic pleural effusions who presents with one week of worsening fatigue s/p chemo tx, found to by hypotensive today during outpt visit to Dr. Smith's office, now admitted for sepsis secondary due to possible empyema from chronic pleural effusions, complicated by acute on chronic liver failure. #Sepsis 2/2 likely secondary to empyema - Afebrile, denies any infectious symptoms. Chemotx one week ago. Chronic pleural effusions w/ loculations on CT scan. - ID consulted - Trend lactate q3h. Most recent 8.2 - Given vanc, zosyn x1 in ED. Continue current abx regimen - IVFs - Monitor for hypotension. If MAP<65, bolus 1L LR - f/u blood, urine, port cultures - Consider diagnostic thoracentesis/paracentesis #Metastatic Breast Ca - Received chemotx one week ago. Hematopoetic disorder secondary to bone mets -Heme/onc consulted -Likely mets to liver w/ imaging -May require port-removal -RBC abnormalities likely secondary to bone mets. RDW, nucleated RBCs increased. F/u retic count -Vitamin b12, folate, LDH sent #End-stage liver disease - T bili 15 on admission. Pt severely jaundiced. - Hepatomegaly on abdominal CT w/ diffuse heterogenous liver dz, likely mets - MELD score of 33 - GI consulted #CHRISSY likely pre-renal 2/2 sepsis - - IVFs - Cr 1.4. Continue to trend. - Daily BMPs, trend Cr. - Renal consulted #?Hx of HTN - Hypotensive on admission - Monitor BP - No home HTN meds #?DM2 - BG 58, no home insulin. - Hold home janumet given renal/hepatic toxicity - ISS once BGMs stable - BGM q4h - f/u A1C FEN: Fluids: NS 100cc/hr Electrolytes: Daily BMPs, monitor Cr Nutrition: Diabetic diet PPX: SCDs Dispo: ICU for management of severe sepsis of unknown source, possible empyema Plan discussed with attending, Dr. Darin Arias, PGY1 Visit type - Emergency Visit Emergency Visit: Yes ED Registration Date: 08/29/17 Care time: The patient presented to the Emergency Department on the above date and was hospitalized for further evaluation of their emergent condition. - New Patient This patient is new to me today: Yes Date on this admission: 08/29/17 - Critical Care Critical Care patient: Yes Total Critical Care Time (in minutes): 35 Critical Care Statement: The care of this patient involved high complexity decision making to prevent further life threatening deterioration of the patient 's condition and/or to evaluate & treat vital organ system(s) failure or risk of failure.
--- NOTE | 2017-08-29 16:15 | CONSULT ---
Consult Consult Specialty:: Oncology - History of Present Illness History of Present Illness: is with metastatic breast cancer on weekly gem. Last chemo on 08/22 was sent from office for hypotension and weakness. Pt seen and examined in the ER. ROS as noted. - History Source History Provided By: Patient, Medical Record, Caregiver Limitations to Obtaining History: Clinical Condition - Past Medical History Cardio/Vascular: Yes: HTN Pulmonary: Yes: COPD Endocrine: Yes: Diabetes Mellitus - Past Surgical History Past Surgical History: Yes: Hysterectomy - Alcohol/Substance Use Hx Alcohol Use: No - Smoking History Smoking history: Former smoker Have you smoked in the past 12 months: No If you are a former smoker, when did you quit?: 1989 - Social History ADL: Independent History of Recent Travel: No Home Medications - Allergies Allergies/Adverse Reactions: Allergies Allergy/AdvReac Type Severity Reaction Status Date / Time No Known Drug Allergies Allergy Verified 08/29/17 11:40 - Home Medications Home Medications: Ambulatory Orders Xalatan 0.005% Eye Drops - 1 drop OU HS 09/01/16 Sitagliptin Phos/Metformin HCl [Janumet Xr 50-500 mg Tablet] 1 each PO DAILY Furosemide 20 mg PO DAILY 02/28/17 Potassium 1 tab PO DAILY 08/06/17 Review of Systems - Review of Systems Constitutional: reports: Fever, Lethargy, Malaise, Unintentional Wgt. Loss Gastrointestinal: reports: Abdominal Pain, Bloating Physical Exam Vital Signs: Vital Signs Temperature 97.8 F 08/29/17 11:41 Pulse Rate 110 H 08/29/17 16:00 Respiratory Rate 20 08/29/17 16:00 Blood Pressure 92/57 08/29/17 16:00 O2 Sat by Pulse Oximetry (%) 99 08/29/17 16:00 Constitutional: Yes: Moderate Distress, Thin Eyes: Yes: Sclera Icterus HENT: Yes: Atraumatic Neck: Yes: Supple Cardiovascular: Yes: Tachycardia Respiratory: Yes: Regular Gastrointestinal: Yes: Tenderness Breast(s): Yes: Other (chronic skin changes, amputated (self) breasts) Edema: Yes Edema: LUE: 3+, RUE: 3+, LLE: 3+, RLE: 3+ Neurological: Yes: Alert Labs: CBC, BMP 08/29/17 12:16 08/29/17 12:15 Imaging - Results Cat Scan: Report Reviewed Ultrasound: Report Reviewed Assessment/Plan Severe sepsis likely from Lung/Biliary origin CHRISSY metastatic breast on active chemotherapy. coagulopathy r/o biliary obstruction _cholestasis_ GI consult will need mrcp once chrissy resolves order us abdomen to r/o cbd obstruction in the interim. if no obs, then elevated lfts may likely represent adv malignancy broad spectrum abx coagulopathy in the setting of infection/liver dysfunction, give vit k order fibrinogen r/o dic renal consult. icu level of care. GI/ID/Renal critically ill d/w admitting resident
[2017-08-29] MEDS ORDERED: SODIUM CHLORIDE 1,000 ML IV SCH ×2 (16:45→16:54)
[2017-08-29] MEDS ORDERED: amLODIPine BESYLATE 5 MG TABLET (FP) PO ONE (17:41)
--- NOTE | 2017-08-29 17:48 | PN ---
Teaching Attending Note Name of Resident: Junior Arias ATTENDING PHYSICIAN STATEMENT I saw and evaluated the patient. I reviewed the resident's note and discussed the case with the resident. I agree with the resident's findings and plan as documented. SUBJECTIVE: Patient is a 72 yo woman with pmhx of HTN, fibromyalgia, and metastatic breast cancer with bone mets with hx of chronic pleural effusions who presents with one week hx of worsening fatigue post chemo tx, and was found to be hypotensive with BP of 60/40 while in 's office and was send to ED for further care. OBJECTIVE: Vital Signs Temperature 98.6 F 08/29/17 15:30 Pulse Rate 110 H 08/29/17 16:46 Respiratory Rate 16 08/29/17 16:46 Blood Pressure 92/59 08/29/17 16:46 O2 Sat by Pulse Oximetry (%) 100 08/29/17 16:46 CBCD WBC 7.6 K/mm3 (4.0-10.0) 08/29/17 12:16 RBC 3.49 M/mm3 (3.60-5.2) L 08/29/17 12:16 Hgb 11.1 GM/dL (10.7-15.3) 08/29/17 12:16 Hct 34.3 % (32.4-45.2) 08/29/17 12:16 MCV 98.4 fl (80-96) H 08/29/17 12:16 MCHC 32.5 g/dl (32.0-36.0) 08/29/17 12:16 RDW 25.7 % (11.6-15.6) H 08/29/17 12:16 Plt Count 249 K/MM3 (134-434) D 08/29/17 12:16 MPV 8.9 fl (7.5-11.1) 08/29/17 12:16 CMP Sodium 135 mmol/L (136-145) L 08/29/17 12:15 Potassium 4.5 mmol/L (3.5-5.1) 08/29/17 12:15 Chloride 99 mmol/L (98-107) 08/29/17 12:15 Carbon Dioxide 15 mmol/L (21-32) L D 08/29/17 12:15 Anion Gap 21 (8-16) H 08/29/17 12:15 BUN 21 mg/dL (7-18) H D 08/29/17 12:15 Creatinine 1.4 mg/dL (0.55-1.02) H D 08/29/17 12:15 Creat Clearance w eGFR 37.18 (>60) 08/29/17 12:15 Random Glucose 58 mg/dL (74-106) L D 08/29/17 12:15 Calcium 8.1 mg/dL (8.5-10.1) L 08/29/17 12:15 Total Bilirubin 15.0 mg/dL (0.2-1.0) H D 08/29/17 12:15 AST 203 U/L (15-37) H 08/29/17 12:15 ALT 92 U/L (12-78) H 08/29/17 12:15 Alkaline Phosphatase 360 U/L (45-117) H D 08/29/17 12:15 Total Protein 5.5 g/dl (6.4-8.2) L 08/29/17 12:15 Albumin 1.8 g/dl (3.4-5.0) L D 08/29/17 12:15 CARDIAC ENZYMES Creatine Kinase 48 IU/L (26-192) 08/29/17 12:15 Troponin I < 0.02 ng/ml (0.00-0.05) 08/29/17 12:15 Current Medications Generic Name Dose Route Start Last Admin Trade Name Freq PRN Reason Stop Dose Admin Chlorhexidine Gluconate 1 applic 08/29/17 22:00 Hibiclens For Decolonization - TP HS [facility] Sodium Chloride 1,000 mls @ 100 mls/hr 08/29/17 16:54 08/29/17 17:09 Normal Saline - IV 100 mls/hr ASDIR [facility] Administration Mupirocin 1 applic 08/29/17 22:00 Bactroban Ointment (For Decolonization) - NS 09/03/17 21:59 BID [facility] Home Medications Medication Instructions Recorded Xalatan 0.005% Eye Drops - 1 drop OU HS 09/01/16 Sitagliptin Phos/Metformin HCl 1 each PO DAILY 11/08/16 [Janumet Xr 50-500 mg Tablet] Furosemide 20 mg PO DAILY 02/28/17 Potassium 1 tab PO DAILY 08/06/17 PE: looks very lethargic Jaundiced, icteric. CHEST: decreased BS BL, right side positive for port. Heart: S1S2 positive, tachycardic, RR Abdomen: soft, positive BS, posiitve for hepatomegaly ext: pulses are positive rest of PE as per Resident's note. Micro:Urine, blood, port cx pending CXR 08/29 - Since 08/08/2017, the bilateral pulmonary and pleural changes with right port persist. LE Duplex 08/29: Negative for DVTs CT scan of chest/abdomen 08/29 - 1. Moderate bilateral pleural effusions with loculations as described above. 2. Atelectatic changes of both lower lobes. 3. Ascites. 4. Heterogeneous liver consistent with diffuse metastases, although discrete lesions cannot be delineated without intravenous contrast. 5. Anasarca. 6. Extensive sclerotic bony metastases. Please see above discussion. ASSESSMENT AND PLAN: 72 yo woman with pmhx of HTN, fibromyalgia, and metastatic breast cancer (bone mets; liver), with chronic pleural effusions who presents with one week of worsening fatigue s/p chemo tx, was found to be hypotensive today while visiting her oncologist Dr. Smith and was sent in for further care. Patient is admitted for sepsis secondary to possible empyema from chronic pleural effusions. # Acute sepsis due to empyema with chronic pleural effusions with loculations on CT scan. Chemotx one week ago. ID on the case, repeat lactate acid level on IV antibiotic as per ID given Vancomycin and Zosyn in ED. further care per ICU team. #Metastatic Breast Ca with bone mets/Liver- Received chemotx one week ago. on consult to see the patient #Elevated T Bili/LFTs - T bili 15 on admission. Pt severely jaundiced. Hepatomegaly on abdominal CT w/ diffuse heterogenous liver dz, likely mets. Hold Januvia - GI consulted #CHRISSY hold Metformin for now, IVF continue to monitor #Hx of HTN , Hypotensive now due to sepsis. Hold BP meds for now. #DM2 - Hold home janumet given renal/hepatic toxicity, SS with coverage ,check hemoglobin A1C PPX: SCDs, Heparin sq admitted in ICU
[2017-08-29 18:51] LABS: URINE LEUK ESTERASE Negative (NEGATIVE)
--- NOTE | 2017-08-29 20:25 | CONSULT ---
Consultation: REQUESTING PROVIDER: CONSULT REQUEST: We have been asked to medically evaluate this patient for hypotension HISTORY OF PRESENT ILLNESS: This is a 72 yo F with a PMH of breast CA mets to lung (malignant pleural effusion on Chemo and 3L of home O2) and liver mets, HTN, fibromyalgia, who presents to ED from Chemo infusion celnter upstairs per Dr Smith request, due to hypotension 60/40 and a tachycardia HR 125. Patient reports diffuse edema of b/l LE and UE that has been worsening over the past few days, dizziness, somnolence and jaundice. She also complains of diffuse body soreness. In ED BP ranges from MAP 64-75. HR 100-115. Patient denies abd pain. Patient is a poor historian. her last chemo was 08/22 and she did not receive todays dose The patient denies chest pain, shortness of breath, headache and dizziness. She denies f/c, n/v, diarrhea and constipation, dysuria, hematuria, melena, hematochezia PCP: Dr. Wei Oncologist: Dr. Smith REVIEW OF SYSTEMS: CONSTITUTIONAL: Absent: fever, chills, HEENT: Absent: rhinorrhea, nasal congestion, throat pain, throat swelling, difficulty swallowing CARDIOVASCULAR: Absent: chest pain, syncope, palpitations RESPIRATORY: Absent: cough GASTROINTESTINAL: Absent: abdominal pain, abdominal distension, nausea, vomiting, diarrhea, constipation, melena, hematochezia GENITOURINARY: Absent: dysuria, hematuria MUSCULOSKELETAL: Absent: myalgia, arthralgia SKIN: Absent: rash, itching, pallor HEMATOLOGIC/IMMUNOLOGIC: Absent: frequent infections ENDOCRINE: Absent: heat intolerance, cold intolerance NEUROLOGIC: Absent: headache, focal weakness or paresthesias PSYCHIATRIC: Absent: anxiety, depression PHYSICAL EXAMINATION Vital Signs - 24 hr 08/29/17 08/29/17 08/29/17 11:41 11:46 11:47 Temperature 97.8 F Pulse Rate 121 H 120 H Pulse Rate [ Apical] Respiratory 26 H Rate Blood Pressure 92/65 Blood Pressure [Left Arm] O2 Sat by Pulse 97 97 97 Oximetry (%) 08/29/17 08/29/17 08/29/17 14:01 15:30 16:00 Temperature 98.6 F Pulse Rate 65 Pulse Rate [ 114 H 110 H Apical] Respiratory 22 18 20 Rate Blood Pressure 114/60 Blood Pressure 85/61 92/57 [Left Arm] O2 Sat by Pulse 98 100 99 Oximetry (%) 08/29/17 08/29/17 16:46 19:19 Temperature Pulse Rate Pulse Rate [ 110 H 114 H Apical] Respiratory 16 24 Rate Blood Pressure Blood Pressure 92/59 81/56 [Left Arm] O2 Sat by Pulse 100 98 Oximetry (%) GENERAL: anasarca, Awake, alert, and fully oriented, in no acute distress, somnolent. HEAD: Normal with no signs of trauma. EYES: Pupils equal, round and reactive to light, extraocular movements intact, + jaundice/scleral icterus EARS, NOSE, THROAT: Moist mucous membranes. NECK: supple without JVD LUNGS:bibasilar crackles HEART: tachy rate and reg rhythm, normal S1 and S2 ABDOMEN: Soft, nontender, mildly distended, reduced bowel sounds, +fluid wave, firm liver. MUSCULOSKELETAL: No CVA tenderness. UPPER EXTREMITIES: 2+ pulses, warm, well-perfused. No cyanosis. No clubbing. Cap refill <2 seconds. arms diffusely tender, moderate peripheral edema. LOWER EXTREMITIES: 2+ pulses, warm, well-perfused. No calf tenderness. R thigh erythematous patchy rash, legs diffusely tender, moderate peripheral edema. NEUROLOGICAL: Cranial nerves II-XII grossly intact. Normal speech. PSYCHIATRIC: Cooperative. Good eye contact. Appropriate mood and affect. SKIN: Warm, dry Laboratory Results - last 24 hr 08/29/17 08/29/17 08/29/17 11:39 12:15 12:15 WBC Corrected WBC (auto) RBC Hgb Hct MCV MCH MCHC RDW Plt Count MPV Total Counted Neutrophils % Neutrophils % (Manual) Band Neutrophils % Lymphocytes % Lymphocytes % (Manual) Monocytes % (Manual) Myelocytes % (Man) Nucleated RBC % Metamyelocytes Platelet Estimate Anisocytosis Microcytosis Macrocytosis Target Cells Retic Count PT with INR INR PTT (Actin FS) Puncture Site ABG pH ABG pCO2 at Pt Temp ABG pO2 at Pt Temp ABG HCO3 ABG O2 Sat (Measured) ABG O2 Content ABG Base Excess Tomas Test Carboxyhemoglobin Methemoglobin O2 Delivery Device Oxygen Flow Rate Sodium 135 L Potassium 4.5 Chloride 99 Carbon Dioxide 15 L D Anion Gap 21 H BUN 21 H D Creatinine 1.4 H D Creat Clearance w eGFR 37.18 Random Glucose 58 L D Lactic Acid 10.3 H* Calcium 8.1 L Phosphorus Magnesium 1.9 Total Bilirubin 15.0 H D Direct Bilirubin AST 203 H ALT 92 H Alkaline Phosphatase 360 H D LD Total Creatine Kinase 48 Troponin I < 0.02 Total Protein 5.5 L Albumin 1.8 L D Lipase 51 L Vitamin B12 Serum Folate Urine Color Urine Appearance Urine pH Ur Specific [place] Urine Protein Urine Glucose (UA) Urine Ketones Urine Blood Urine Nitrite Urine Bilirubin Urine Urobilinogen Ur Leukocyte Esterase Urine WBC (Auto) Urine RBC (Auto) Urine Mucus Blood Type O POSITIVE Antibody Screen Positive H Antibody Identification TNP 08/29/17 08/29/17 08/29/17 12:16 12:16 12:21 WBC 7.6 Corrected WBC (auto) 6.67 RBC 3.49 L Hgb 11.1 Hct 34.3 MCV 98.4 H MCH 32.0 MCHC 32.5 RDW 25.7 H Plt Count 249 D MPV 8.9 Total Counted 100 Neutrophils % No Result Required. Neutrophils % (Manual) 52.0 Band Neutrophils % 20.0 Lymphocytes % No Result Required. Lymphocytes % (Manual) 16.0 D Monocytes % (Manual) 5 Myelocytes % (Man) 1 Nucleated RBC % 14 H* Metamyelocytes 6 H D Platelet Estimate Adequate Anisocytosis 4+ Microcytosis 1+ Macrocytosis 3+ Target Cells 3+ Retic Count PT with INR 37.30 H INR 3.30 H D PTT (Actin FS) 59.3 H D Puncture Site ABG pH ABG pCO2 at Pt Temp ABG pO2 at Pt Temp ABG HCO3 ABG O2 Sat (Measured) ABG O2 Content ABG Base Excess Tomas Test Carboxyhemoglobin Methemoglobin O2 Delivery Device Oxygen Flow Rate Sodium Potassium Chloride Carbon Dioxide Anion Gap BUN Creatinine Creat Clearance w eGFR Random Glucose Lactic Acid Calcium Phosphorus Magnesium Total Bilirubin Direct Bilirubin AST ALT Alkaline Phosphatase LD Total Creatine Kinase Troponin I Total Protein Albumin Lipase Vitamin B12 Serum Folate Urine Color Alisha Urine Appearance Cloudy Urine pH 5.0 Ur Specific [place] 1.024 Urine Protein 1+ H Urine Glucose (UA) 1+ H Urine Ketones Trace H Urine Blood 1+ H Urine Nitrite Negative Urine Bilirubin 4.0 Urine Urobilinogen 4.0 e.u/dl H Ur Leukocyte Esterase Negative Urine WBC (Auto) 16 Urine RBC (Auto) 1 Urine Mucus Rare Blood Type Antibody Screen Antibody Identification 1208/29/17 08/29/17 12:34 12:34 14:54 WBC Corrected WBC (auto) RBC Hgb Hct MCV MCH MCHC RDW Plt Count MPV Total Counted Neutrophils % Neutrophils % (Manual) Band Neutrophils % Lymphocytes % Lymphocytes % (Manual) Monocytes % (Manual) Myelocytes % (Man) Nucleated RBC % Metamyelocytes Platelet Estimate Anisocytosis Microcytosis Macrocytosis Target Cells Retic Count PT with INR INR PTT (Actin FS) Puncture Site Right radial ABG pH 7.38 ABG pCO2 at Pt Temp 25.0 L ABG pO2 at Pt Temp 94.0 ABG HCO3 14.5 L* ABG O2 Sat (Measured) 97.5 ABG O2 Content 15.5 ABG Base Excess -8.8 L Tomas Test Positive Carboxyhemoglobin 1.5 Methemoglobin 0.3 L O2 Delivery Device N/c Oxygen Flow Rate 2 Sodium Potassium Chloride Carbon Dioxide Anion Gap BUN Creatinine Creat Clearance w eGFR Random Glucose Lactic Acid Calcium Phosphorus Magnesium Total Bilirubin Direct Bilirubin AST ALT Alkaline Phosphatase LD Total Creatine Kinase Troponin I Total Protein Albumin Lipase Vitamin B12 2358 H Serum Folate Urine Color Urine Appearance Urine pH Ur Specific [place] Urine Protein Urine Glucose (UA) Urine Ketones Urine Blood Urine Nitrite Urine Bilirubin Urine Urobilinogen Ur Leukocyte Esterase Urine WBC (Auto) Urine RBC (Auto) Urine Mucus Blood Type Antibody Screen Antibody Identification 08/29/17 08/29/17 08/29/17 15:30 15:30 15:30 WBC Corrected WBC (auto) RBC Hgb Hct MCV MCH MCHC RDW Plt Count MPV Total Counted Neutrophils % Neutrophils % (Manual) Band Neutrophils % Lymphocytes % Lymphocytes % (Manual) Monocytes % (Manual) Myelocytes % (Man) Nucleated RBC % Metamyelocytes Platelet Estimate Anisocytosis Microcytosis Macrocytosis Target Cells Retic Count 1.32 PT with INR INR PTT (Actin FS) Puncture Site ABG pH ABG pCO2 at Pt Temp ABG pO2 at Pt Temp ABG HCO3 ABG O2 Sat (Measured) ABG O2 Content ABG Base Excess Tomas Test Carboxyhemoglobin Methemoglobin O2 Delivery Device Oxygen Flow Rate Sodium Potassium Chloride Carbon Dioxide Anion Gap BUN Creatinine Creat Clearance w eGFR Random Glucose Lactic Acid 8.1 H* Calcium Phosphorus Magnesium Total Bilirubin Direct Bilirubin 11.0 H AST ALT Alkaline Phosphatase LD Total 381 H Creatine Kinase Troponin I Total Protein Albumin Lipase Vitamin B12 Serum Folate Urine Color Urine Appearance Urine pH Ur Specific [place] Urine Protein Urine Glucose (UA) Urine Ketones Urine Blood Urine Nitrite Urine Bilirubin Urine Urobilinogen Ur Leukocyte Esterase Urine WBC (Auto) Urine RBC (Auto) Urine Mucus Blood Type Antibody Screen Antibody Identification 08/29/17 08/29/17 08/29/17 15:30 18:00 18:20 WBC Corrected WBC (auto) RBC Hgb Hct MCV MCH MCHC RDW Plt Count MPV Total Counted Neutrophils % Neutrophils % (Manual) Band Neutrophils % Lymphocytes % Lymphocytes % (Manual) Monocytes % (Manual) Myelocytes % (Man) Nucleated RBC % Metamyelocytes Platelet Estimate Anisocytosis Microcytosis Macrocytosis Target Cells Retic Count PT with INR INR PTT (Actin FS) Puncture Site ABG pH ABG pCO2 at Pt Temp ABG pO2 at Pt Temp ABG HCO3 ABG O2 Sat (Measured) ABG O2 Content ABG Base Excess Tomas Test Carboxyhemoglobin Methemoglobin O2 Delivery Device Oxygen Flow Rate Sodium Potassium Chloride Carbon Dioxide Anion Gap BUN Creatinine Creat Clearance w eGFR Random Glucose Lactic Acid 7.5 H* Calcium Phosphorus 2.2 L Magnesium Total Bilirubin Direct Bilirubin AST ALT Alkaline Phosphatase LD Total Creatine Kinase Troponin I Total Protein Albumin Lipase Vitamin B12 Serum Folate 5 Urine Color Urine Appearance Urine pH Ur Specific [place] Urine Protein Urine Glucose (UA) Urine Ketones Urine Blood Urine Nitrite Urine Bilirubin Urine Urobilinogen Ur Leukocyte Esterase Urine WBC (Auto) Urine RBC (Auto) Urine Mucus Blood Type Antibody Screen Antibody Identification Active Medications Generic Name Dose Route Start Last Admin Trade Name Freq PRN Reason Stop Dose Admin Chlorhexidine Gluconate 1 applic 08/29/17 22:00 Hibiclens For Decolonization - TP HS [facility] Enoxaparin Sodium 30 mg 08/30/17 10:00 Lovenox - SQ DAILY [facility] Sodium Chloride 1,000 mls @ 100 mls/hr 08/29/17 16:54 08/29/17 17:09 Normal Saline - IV 100 mls/hr ASDIR [facility] Administration Piperacillin Sod/Tazobactam 50 mls @ 100 mls/hr 08/29/17 23:00 Sod 3.375 gm/ Dextrose IVPB 08/29/17 23:29 ONCE ONE Vancomycin HCl 1,000 mg/ 250 mls @ 250 mls/hr 08/30/17 01:00 Dextrose IVPB 08/30/17 01:59 ONCE ONE Mupirocin 1 applic 08/29/17 22:00 Bactroban Ointment (For Decolonization) - NS 09/03/17 21:59 BID [facility] ASSESSMENT/PLAN: This is a 72 yo F with a PMH of breast CA mets to lung (malignant pleural effusion on Chemo and 3L of home O2) and liver mets, HTN, fibromyalgia, who presents to ED from Chemo infusion celnter upstairs per Dr Smith request, due to hypotension 60/40 and a tachycardia HR 125. Neuro -aaox3 but somnolent -check ammonia pulm -Malignans effusions -continue supplemental O2 -stable at this time -unlikely infection CV *tachycardia and hypotension -likely due to diffuse vasodilation, low albumin and vol overload in setting of hepatic failure -iv fluid support NS @ 100 -levophed if needed GI *metastatic breast CA to liver with worsening hepatic failure *causing worsening hyperbilirubinemia, hypotension, ascites, coagulopathy, CHRISSY, hyponatremia 135 -MELD 33 -supportive management as above -Onc, GI, ID, renal on case -do not suspect infection (no leukocytosis, fever); prophylactic broad spectrum abx controversial and not supported by literature when no obvious infection present -vit K for coagulopathy; f/u fibrinogen -hyperbilirubinemia likley due to worsening liver failure in setting of mets but cant r/o obstruction -CT abd no GB path seen; f/u abd US for CBD eval, possible MRCP *transaminits -at [facility] in setting of malignancy *CHRISSY -due to systemic vasodilation in setting of liver failure -hepatorenal picture but cant establish diagniosis because refractory ascites not established. -managements as above FEN -NS @ 100 -f/u lytes -low na diet scd, diet Dispo: We will continue to follow the patient. Thank you for this consultative opportunity. Problem List - Problems (1) Liver failure Code(s): K72.90 - HEPATIC FAILURE, UNSPECIFIED WITHOUT COMA (2) CHRISSY (acute kidney injury) Code(s): N17.9 - ACUTE KIDNEY FAILURE, UNSPECIFIED (3) Hypotension Code(s): I95.9 - HYPOTENSION, UNSPECIFIED (4) Coagulopathy Code(s): D68.9 - COAGULATION DEFECT, UNSPECIFIED (5) Transaminitis Code(s): R74.0 - NONSPEC ELEV OF LEVELS OF TRANSAMNS & LACTIC ACID DEHYDRGNSE (6) Breast CA Code(s): C50.919 - MALIGNANT NEOPLASM OF UNSP SITE OF UNSPECIFIED FEMALE BREAST (7) Hyperbilirubinemia Code(s): E80.6 - OTHER DISORDERS OF BILIRUBIN METABOLISM (8) Hypertension Code(s): I10 - ESSENTIAL (PRIMARY) HYPERTENSION Qualifiers: Hypertension type: essential hypertension Qualified Code(s): I10 - Essential (primary) hypertension (9) Malignant pleural effusion Code(s): J91.0 - MALIGNANT PLEURAL EFFUSION Visit type - Emergency Visit Emergency Visit: Yes ED Registration Date: 08/29/17 Care time: The patient presented to the Emergency Department on the above date and was hospitalized for further evaluation of their emergent condition. - New Patient This patient is new to me today: Yes Date on this admission: 08/29/17 - Critical Care Critical Care patient: Yes Total Critical Care Time (in minutes): 35 Critical Care Statement: The care of this patient involved high complexity decision making to prevent further life threatening deterioration of the patient 's condition and/or to evaluate & treat vital organ system(s) failure or risk of failure.
[2017-08-29] MEDS ORDERED: PHYTONADIONE 10 MG/1 ML AMP IVPB ONE (20:40)
[2017-08-29] MEDS ORDERED: PHYTONADIONE 10 MG/1 ML AMP ONE (21:47)
[2017-08-29] MEDS ORDERED: PIPERACILLIN/TAZOB 3.375 GM 3.375 GM in DEXTROSE 5%-WATER - 50 ML IVPB ONE (23:00)
[2017-08-29] MEDS ORDERED: PIPERACILLIN/TAZOB 3.375 GM/50 ML PRE-DOCKED IVPB ONE (23:00)
[2017-08-30] MEDS ORDERED: ALBUMIN HUMAN 5% 250 ML IV SOLUTION IVPB ONE (00:32)
[2017-08-30] MEDS ORDERED: oxyCODONE HCL 5 MG TABLET PO PRN (00:33)
--- NOTE | 2017-08-30 00:52 | CONSULT ---
Consult Consult Specialty:: Pulm/CCM Reason for Consultation:: Hypotension m/l sepsis - History of Present Illness Chief Complaint: Generalized pain History of Present Illness: 72 lyndsey with PMHx of HTN, fibromyalgia, Stage 4 metastatic breast cancer with mets to bone and liver, chronic malignant pleural effusions who was sent to ED for outpatient oncology visit with hypotension BP 60's/40's. She had rec'd her latest dose of Gemcitabine on 08/22 and had been c/o of fatique and weakness. She was also noted to be more jaundiced. She denied CP, SON, headache or dizziness, cough, N/V/D. In the ED BP 90's/60's , HR 130's. Labs notable for WBC 7.6, lactate of 10, Total bili of 15,ABG 7.38/25/94/14.5. AGAP 21, Lactate 7. CXR w/ BL large pleural effusions She was given 2L NS bolus, alexander-cultured, started on empiric Zosyn and vanco. She was transferred to ICU for further management. Rec'd in ICUA+O x3. c/o generalized pain. Afebrile, BP 77/52, HR 161, )2 sat 99 % on 4L NC O2. Fluid bolus NS 1L and 5% Albumin. Rt thigh noted to be swollen , soft with bruising and tender to palpation. Duplex negative for DVT. Antibiotics continued. - History Source History Provided By: Medical Record Limitations to Obtaining History: Clinical Condition - Past Medical History Cardio/Vascular: Yes: HTN Pulmonary: Yes: COPD Gastrointestinal: Yes: Ascites Hepatobiliary: Yes: Other (Liver mass) Heme/Onc: Yes: Cancer, Hypercoaguable State Endocrine: Yes: Diabetes Mellitus - Past Surgical History Past Surgical History: Yes: Hysterectomy - Alcohol/Substance Use Hx Alcohol Use: No - Smoking History Smoking history: Former smoker Have you smoked in the past 12 months: No If you are a former smoker, when did you quit?: 1989 - Social History ADL: Independent History of Recent Travel: No Home Medications - Allergies Allergies/Adverse Reactions: Allergies Allergy/AdvReac Type Severity Reaction Status Date / Time No Known Drug Allergies Allergy Verified 08/29/17 11:40 - Home Medications Home Medications: Ambulatory Orders Xalatan 0.005% Eye Drops - 1 drop OU HS 12/09/16 Sitagliptin Phos/Metformin HCl [Janumet Xr 50-500 mg Tablet] 1 each PO DAILY Furosemide 20 mg PO DAILY 02/28/17 Potassium 1 tab PO DAILY 08/06/17 Family Disease History - Family Disease History Family History: Unable to Obtain Review of Systems Unable to obtain ROS, reason: unable Physical Exam Vital Signs: Vital Signs Temperature 98.6 F 08/29/17 15:30 Pulse Rate 161 H 08/30/17 00:30 Respiratory Rate 21 08/30/17 00:30 Blood Pressure 77/52 08/30/17 00:30 O2 Sat by Pulse Oximetry (%) 98 08/29/17 19:19 Constitutional: Yes: Anxious, Obese Eyes: Yes: Sclera Icterus HENT: Yes: Atraumatic, Normocephalic Neck: Yes: Trachea Midline Cardiovascular: Yes: Tachycardia, S1, S2 Respiratory: Yes: Regular, CTA Bilaterally Gastrointestinal: Yes: Normal Bowel Sounds, Abdomen, Obese, Hernia Renal/: Yes: Bishop Present Breast(s): Yes: Skin Changes (discolored scaly skin on bilat breasts) Extremities: Yes: Erythema (Rt thigh painful and swollen with areas of erythema) Edema: Yes Edema: LUE: 2+, RUE: 2+, LLE: 2+, RLE: 2+ Peripheral Pulses WNL: Yes Integumentary: Yes: Bruising, Erythema, Jaundice Neurological: Yes: Alert, Oriented Psychiatric: Yes: Alert, Oriented Labs: CBC, BMP 08/29/17 12:16 08/29/17 12:15 CBC,CMP WBC 7.6 K/mm3 (4.0-10.0) 08/29/17 12:16 Corrected WBC (auto) 6.67 K/mm3 08/29/17 12:16 RBC 3.49 M/mm3 (3.60-5.2) L 08/29/17 12:16 Hgb 11.1 GM/dL (10.7-15.3) 08/29/17 12:16 Hct 34.3 % (32.4-45.2) 08/29/17 12:16 MCV 98.4 fl (80-96) H 08/29/17 12:16 MCH 32.0 pg (25.7-33.7) 08/29/17 12:16 MCHC 32.5 g/dl (32.0-36.0) 08/29/17 12:16 RDW 25.7 % (11.6-15.6) H 08/29/17 12:16 Plt Count 249 K/MM3 (134-434) D 08/29/17 12:16 MPV 8.9 fl (7.5-11.1) 08/29/17 12:16 Total Counted 100 08/29/17 12:16 Neutrophils % No Result Required. 08/29/17 12:16 Neutrophils % (Manual) 52.0 % (42.8-82.8) 08/29/17 12:16 Band Neutrophils % 20.0 % 08/29/17 12:16 Lymphocytes % No Result Required. 08/29/17 12:16 Lymphocytes % (Manual) 16.0 % (8-40) D 08/29/17 12:16 Monocytes % (Manual) 5 % (3.8-10.2) 08/29/17 12:16 Myelocytes % (Man) 1 % (0-2) 08/29/17 12:16 Nucleated RBC % 14 % (0-0) H* 08/29/17 12:16 Metamyelocytes 6 % (0-2) H D 08/29/17 12:16 Platelet Estimate Adequate 08/29/17 12:16 Anisocytosis 4+ 08/29/17 12:16 Microcytosis 1+ 08/29/17 12:16 Macrocytosis 3+ 08/29/17 12:16 Target Cells 3+ 08/29/17 12:16 Retic Count 1.32 % (0.5-1.5) 08/29/17 15:30 Sodium 135 mmol/L (136-145) L 08/29/17 12:15 Potassium 4.5 mmol/L (3.5-5.1) 08/29/17 12:15 Chloride 99 mmol/L (98-107) 08/29/17 12:15 Carbon Dioxide 15 mmol/L (21-32) L D 08/29/17 12:15 Anion Gap 21 (8-16) H 08/29/17 12:15 BUN 21 mg/dL (7-18) H D 08/29/17 12:15 Creatinine 1.4 mg/dL (0.55-1.02) H D 08/29/17 12:15 Creat Clearance w eGFR 37.18 (>60) 08/29/17 12:15 Random Glucose 58 mg/dL (74-106) L D 08/29/17 12:15 Lactic Acid 6.6 mmol/L (0.4-2.0) H* 08/29/17 21:40 Calcium 8.1 mg/dL (8.5-10.1) L 08/29/17 12:15 Phosphorus 2.2 mg/dL (2.5-4.9) L 08/29/17 18:20 Magnesium 1.9 mg/dL (1.8-2.4) 08/29/17 12:15 Total Bilirubin 15.0 mg/dL (0.2-1.0) H D 08/29/17 12:15 Direct Bilirubin 10.5 mg/dL (0.0-0.2) H 08/29/17 21:40 AST 203 U/L (15-37) H 08/29/17 12:15 ALT 92 U/L (12-78) H 08/29/17 12:15 Alkaline Phosphatase 360 U/L (45-117) H D 08/29/17 12:15 Ammonia < 10.0 umol/L (11-32) L 08/29/17 21:40 LD Total 381 U/L (84-246) H 08/29/17 15:30 Creatine Kinase 48 IU/L (26-192) 08/29/17 12:15 Troponin I < 0.02 ng/ml (0.00-0.05) 08/29/17 12:15 Total Protein 5.5 g/dl (6.4-8.2) L 08/29/17 12:15 Albumin 1.8 g/dl (3.4-5.0) L D 08/29/17 12:15 Lipase 51 U/L (73-393) L 08/29/17 12:15 Vitamin B12 2358 pg/ml (180-914) H 08/29/17 14:54 Serum Folate 5 ng/ml (3.1-17.5) 08/29/17 15:30 Current Medications Chlorhexidine Gluconate (Hibiclens For Decolonization -) 1 applic TP HS KLAUS Sodium Chloride (Normal Saline -) 1,000 mls @ 100 mls/hr IV ASDIR KLAUS Last Admin: 08/29/17 17:09 Dose: 100 mls/hr Vancomycin HCl 1,000 mg/ (Dextrose) 250 mls @ 250 mls/hr IVPB ONCE ONE Stop: 08/30/17 01:59 Mupirocin (Bactroban Ointment (For Decolonization) -) 1 applic NS BID KLAUS Stop: 09/03/17 21:59 Oxycodone HCl (Roxicodone -) 10 mg PO Q4H PRN PRN Reason: PAIN Vital Signs Period Temp Pulse Resp BP Sys/Giron Pulse Ox Last 24 Hr 97.8 F-98.6 F 65-161 16-26 77-114/52-65 97-100 Microbiology 08/29/17 11:40 Blood Culture - Preliminary Blood - Sofia Cath Pending Organism 08/29/17 12:21 Blood Culture - Preliminary Blood - Sofia Cath Pending Organism Imaging - Results Chest X-ray: Report Reviewed Cat Scan: Report Reviewed Ultrasound: Report Reviewed Problem List - Problems (1) CHRISSY (acute kidney injury) Code(s): N17.9 - ACUTE KIDNEY FAILURE, UNSPECIFIED (2) Breast CA Code(s): C50.919 - MALIGNANT NEOPLASM OF UNSP SITE OF UNSPECIFIED FEMALE BREAST (3) Coagulopathy Code(s): D68.9 - COAGULATION DEFECT, UNSPECIFIED (4) Hyperbilirubinemia Code(s): E80.6 - OTHER DISORDERS OF BILIRUBIN METABOLISM (5) Hypotension Code(s): I95.9 - HYPOTENSION, UNSPECIFIED (6) Liver failure Code(s): K72.90 - HEPATIC FAILURE, UNSPECIFIED WITHOUT COMA (7) Sepsis Code(s): A41.9 - SEPSIS, UNSPECIFIED ORGANISM (8) Transaminitis Code(s): R74.0 - NONSPEC ELEV OF LEVELS OF TRANSAMNS & LACTIC ACID DEHYDRGNSE (9) Metastasis from breast cancer Code(s): C79.9 - SECONDARY MALIGNANT NEOPLASM OF UNSPECIFIED SITE; C50.919 - MALIGNANT NEOPLASM OF UNSP SITE OF UNSPECIFIED FEMALE BREAST (10) Malignant pleural effusion Code(s): J91.0 - MALIGNANT PLEURAL EFFUSION Assessment/Plan 2 lyndsey with PMHx of HTN, fibromyalgia, Stage 4 metastatic breast cancer with mets to bone and liver, chronic malignant pleural effusions who was sent to ED for outpatient oncology visit with hypotension BP 60's/40's m/l in the setting of sepsis of unclear source (poss IV port, RLE cellultitis,gut). Also with component of liver dysfunction and possible cirrhosis. Plan: -Fluid bolus re appears intravascularly dehydrated -Vasopressors as needed for MAP>60 -Monitor I+O's -f/u cultures -Cont empiric antibiotic coverage -Culture mediport; consider change -Trend lactate -Hold antihypertensive -TTE -Hold anticoagulation until INR<2 -Pain management -Palliative care consult -Cont DM regimen -Advance diet as able -GI prophylaxis Taylor Galicia, ALESHIA CC time 35mins
[2017-08-30] MEDS ORDERED: VANCOMYCIN 1 GRAM (PRE-DOCKED) 1,000 MG/250 ML BAG IVPB ONE (01:00)
[2017-08-30] MEDS ORDERED: VANCOMYCIN 1,000 MG in DEXTROSE 5%-WATER - 250 ML IVPB ONE (01:00)
[2017-08-30] MEDS: CHLORHEXIDINE GLUCONATE 4% CLEANSER FOR DECOLONIZATION TP SCH ×2 (01:32→21:35)
[2017-08-30] MEDS: MUPIROCIN 2% TOPICAL OINTMENT FOR DECOLONIZATION NS SCH ×3 (01:33→21:35)
[2017-08-30] MEDS ORDERED: DEXTROSE 50%-WATER - 25 GM/50 ML VIAL IVPUSH ONE ×2 (02:03→12:00)
[2017-08-30 02:17] LABS: CPK 55 IU/L (26-192)
[2017-08-30 02:19] LABS: TROPONIN I < 0.02 ng/ml (0.00-0.05)
[2017-08-30] MEDS ORDERED: DEXTROSE 50%-WATER 25 GM/50 ML DISP.SYRIN ONE ×2 (02:39→12:13)
[2017-08-30 06:36] LABS: INR 3.02 (0.82-1.09); PROTHROMBIN TIME (PATIENT) 34.1 SEC (9.98-11.88)
[2017-08-30 06:39] LABS: ANION GAP 17 (8-16); CALCIUM 7.2 mg/dL (8.5-10.1); CO2 16 mmol/L (21-32); GLUCOSE,RANDOM 81 mg/dL (74-106); MAGNESIUM 1.8 mg/dL (1.8-2.4)
[2017-08-30 06:42] LABS: ALK PHOS 220 U/L (45-117); BILIRUBIN,TOTAL 14.3 mg/dL (0.2-1.0); CREATININE 1.9 mg/dL (0.55-1.02); PHOSPHOROUS 2.8 mg/dL (2.5-4.9); SGOT/AST 192 U/L (15-37); SGPT/ALT 77 U/L (12-78); TOT PROT 4.9 g/dl (6.4-8.2)
--- NOTE | 2017-08-30 08:21 | PN ---
Physical Exam: SUBJECTIVE: Patient seen and examined by me this AM -Denies any fevers/chills, CP, palpitations, N/V, abdominal pain, new neuro symptoms, DINERO/lightheadness - Hypotensive overnight. Given albumin and started on NS 125cc in ICU, as fluids were held in ED for some reason - Afebrile and tachy overnight. - Spoke to pt about code status and whether she desired intubation/ resuscitation in the event of further decompensation. She stated she needed to talk to her daughter and then would give an answer PM: - MAPs 50-low 60s. Requiring levo gtt for BP maintainence. OBJECTIVE: Vital Signs Intake & Output 08/27/17 08/28/17 08/29/17 08/30/17 23:59 23:59 23:59 23:59 Intake Total 200 2064 Balance 200 2064 Weight 64.864 kg 69.8 kg Period Temp Pulse Resp BP Sys/Giron Pulse Ox Last 24 Hr 97.8 F-98.6 F 65-161 16-26 77-114/46-65 97-100 GENERAL: A&Ox3 frail, elderly woman, somnolent. HEAD: NCAT. severely jaundiced EYES: Pupils equal, round and reactive to light, extraocular movements intact, sclera icteric. No lid lag. EARS, NOSE, THROAT: Ears normal, nares patent, oropharynx clear without exudates , sublingual jaundice. Moist mucous membranes. No thrush or oral lesions noted. NECK: Normal range of motion, supple without lymphadenopathy, JVD, or masses. LUNGS: Decreased breath sounds at lung bases. No wheezes and no crackles. No accessory muscle use. HEART: Tachycardic, regular rate and rhythm, normal S1 and S2 without murmur, rub or gallop. R port in upper chest. Still w/ bilateral mastectomy, with diffuse necrotic petechial scar/chronic skin changes. ABDOMEN: Full abdomen. nontender. hypoactive bowel bowel sounds, no guarding, no rebound. Significant hepatomegaly with easily palpable liver edge. + fluid wave shift. negative murphys. MUSCULOSKELETAL: Normal range of motion at all joints. No bony deformities or tenderness. Mild CVA tenderness in R flank. UPPER EXTREMITIES: 2+ pulses, warm, well-perfused. No cyanosis. No clubbing. +1 peripheral edema. LOWER EXTREMITIES: 2+ PT, 1+ DP pulse BL. 2+ pitting edema bilaterally. Warm, well-perfused. No calf tenderness. No peripheral edema. 5/5 dorsi/ plantarflexion BL. 2+ patellar reflexes. Preserved sensation to touch BL NEUROLOGICAL: Cranial nerves II-XII intact. Normal speech. Gait not evaluated. SKIN: Diffuse, pronounced jaundice. BL anterior chest punctate necrotic rash. Laboratory Results - last 24 hr CBC, BMP 08/30/17 05:00 08/29/17 08/29/17 08/29/17 11:39 12:15 12:15 WBC Corrected WBC (auto) RBC Hgb Hct MCV MCH MCHC RDW Plt Count MPV Total Counted Neutrophils % Neutrophils % (Manual) Band Neutrophils % Lymphocytes % Lymphocytes % (Manual) Monocytes % (Manual) Myelocytes % (Man) Nucleated RBC % Metamyelocytes Platelet Estimate Anisocytosis Microcytosis Macrocytosis Target Cells Retic Count PT with INR INR PTT (Actin FS) Fibrinogen Puncture Site ABG pH ABG pCO2 at Pt Temp ABG pO2 at Pt Temp ABG HCO3 ABG O2 Sat (Measured) ABG O2 Content ABG Base Excess Tomas Test Carboxyhemoglobin Methemoglobin O2 Delivery Device Oxygen Flow Rate Sodium 135 L Potassium 4.5 Chloride 99 Carbon Dioxide 15 L D Anion Gap 21 H BUN 21 H D Creatinine 1.4 H D Creat Clearance w eGFR 37.18 Random Glucose 58 L D Lactic Acid 10.3 H* Calcium 8.1 L Phosphorus Magnesium 1.9 Total Bilirubin 15.0 H D Direct Bilirubin AST 203 H ALT 92 H Alkaline Phosphatase 360 H D Ammonia LD Total Creatine Kinase 48 Troponin I < 0.02 Total Protein 5.5 L Albumin 1.8 L D Lipase 51 L Vitamin B12 Serum Folate Urine Color Urine Appearance Urine pH Ur Specific [place] Urine Protein Urine Glucose (UA) Urine Ketones Urine Blood Urine Nitrite Urine Bilirubin Urine Urobilinogen Ur Leukocyte Esterase Urine WBC (Auto) Urine RBC (Auto) Urine Mucus Blood Type O POSITIVE Antibody Screen Positive H Antibody Identification TNP 08/29/17 08/29/17 08/29/17 12:16 12:16 12:21 WBC 7.6 Corrected WBC (auto) 6.67 RBC 3.49 L Hgb 11.1 Hct 34.3 MCV 98.4 H MCH 32.0 MCHC 32.5 RDW 25.7 H Plt Count 249 D MPV 8.9 Total Counted 100 Neutrophils % No Result Required. Neutrophils % (Manual) 52.0 Band Neutrophils % 20.0 Lymphocytes % No Result Required. Lymphocytes % (Manual) 16.0 D Monocytes % (Manual) 5 Myelocytes % (Man) 1 Nucleated RBC % 14 H* Metamyelocytes 6 H D Platelet Estimate Adequate Anisocytosis 4+ Microcytosis 1+ Macrocytosis 3+ Target Cells 3+ Retic Count PT with INR 37.30 H INR 3.30 H D PTT (Actin FS) 59.3 H D Fibrinogen Puncture Site ABG pH ABG pCO2 at Pt Temp ABG pO2 at Pt Temp ABG HCO3 ABG O2 Sat (Measured) ABG O2 Content ABG Base Excess Tomas Test Carboxyhemoglobin Methemoglobin O2 Delivery Device Oxygen Flow Rate Sodium Potassium Chloride Carbon Dioxide Anion Gap BUN Creatinine Creat Clearance w eGFR Random Glucose Lactic Acid Calcium Phosphorus Magnesium Total Bilirubin Direct Bilirubin AST ALT Alkaline Phosphatase Ammonia LD Total Creatine Kinase Troponin I Total Protein Albumin Lipase Vitamin B12 Serum Folate Urine Color Alisha Urine Appearance Cloudy Urine pH 5.0 Ur Specific [place] 1.024 Urine Protein 1+ H Urine Glucose (UA) 1+ H Urine Ketones Trace H Urine Blood 1+ H Urine Nitrite Negative Urine Bilirubin 4.0 Urine Urobilinogen 4.0 e.u/dl H Ur Leukocyte Esterase Negative Urine WBC (Auto) 16 Urine RBC (Auto) 1 Urine Mucus Rare Blood Type Antibody Screen Antibody Identification 08/29/17 08/29/17 08/29/17 12:34 12:34 14:54 WBC Corrected WBC (auto) RBC Hgb Hct MCV MCH MCHC RDW Plt Count MPV Total Counted Neutrophils % Neutrophils % (Manual) Band Neutrophils % Lymphocytes % Lymphocytes % (Manual) Monocytes % (Manual) Myelocytes % (Man) Nucleated RBC % Metamyelocytes Platelet Estimate Anisocytosis Microcytosis Macrocytosis Target Cells Retic Count PT with INR INR PTT (Actin FS) Fibrinogen Puncture Site Right radial ABG pH 7.38 ABG pCO2 at Pt Temp 25.0 L ABG pO2 at Pt Temp 94.0 ABG HCO3 14.5 L* ABG O2 Sat (Measured) 97.5 ABG O2 Content 15.5 ABG Base Excess -8.8 L Tomas Test Positive Carboxyhemoglobin 1.5 Methemoglobin 0.3 L O2 Delivery Device N/c Oxygen Flow Rate 2 Sodium Potassium Chloride Carbon Dioxide Anion Gap BUN Creatinine Creat Clearance w eGFR Random Glucose Lactic Acid Calcium Phosphorus Magnesium Total Bilirubin Direct Bilirubin AST ALT Alkaline Phosphatase Ammonia LD Total Creatine Kinase Troponin I Total Protein Albumin Lipase Vitamin B12 2358 H Serum Folate Urine Color Urine Appearance Urine pH Ur Specific [place] Urine Protein Urine Glucose (UA) Urine Ketones Urine Blood Urine Nitrite Urine Bilirubin Urine Urobilinogen Ur Leukocyte Esterase Urine WBC (Auto) Urine RBC (Auto) Urine Mucus Blood Type Antibody Screen Antibody Identification 08/29/17 08/29/17 08/29/17 15:30 15:30 15:30 WBC Corrected WBC (auto) RBC Hgb Hct MCV MCH MCHC RDW Plt Count MPV Total Counted Neutrophils % Neutrophils % (Manual) Band Neutrophils % Lymphocytes % Lymphocytes % (Manual) Monocytes % (Manual) Myelocytes % (Man) Nucleated RBC % Metamyelocytes Platelet Estimate Anisocytosis Microcytosis Macrocytosis Target Cells Retic Count 1.32 PT with INR INR PTT (Actin FS) Fibrinogen Puncture Site ABG pH ABG pCO2 at Pt Temp ABG pO2 at Pt Temp ABG HCO3 ABG O2 Sat (Measured) ABG O2 Content ABG Base Excess Tomas Test Carboxyhemoglobin Methemoglobin O2 Delivery Device Oxygen Flow Rate Sodium Potassium Chloride Carbon Dioxide Anion Gap BUN Creatinine Creat Clearance w eGFR Random Glucose Lactic Acid 8.1 H* Calcium Phosphorus Magnesium Total Bilirubin Direct Bilirubin 11.0 H AST ALT Alkaline Phosphatase Ammonia LD Total 381 H Creatine Kinase Troponin I Total Protein Albumin Lipase Vitamin B12 Serum Folate Urine Color Urine Appearance Urine pH Ur Specific [place] Urine Protein Urine Glucose (UA) Urine Ketones Urine Blood Urine Nitrite Urine Bilirubin Urine Urobilinogen Ur Leukocyte Esterase Urine WBC (Auto) Urine RBC (Auto) Urine Mucus Blood Type Antibody Screen Antibody Identification 08/29/17 08/29/17 08/29/17 15:30 18:00 18:20 WBC Corrected WBC (auto) RBC Hgb Hct MCV MCH MCHC RDW Plt Count MPV Total Counted Neutrophils % Neutrophils % (Manual) Band Neutrophils % Lymphocytes % Lymphocytes % (Manual) Monocytes % (Manual) Myelocytes % (Man) Nucleated RBC % Metamyelocytes Platelet Estimate Anisocytosis Microcytosis Macrocytosis Target Cells Retic Count PT with INR INR PTT (Actin FS) Fibrinogen Puncture Site ABG pH ABG pCO2 at Pt Temp ABG pO2 at Pt Temp ABG HCO3 ABG O2 Sat (Measured) ABG O2 Content ABG Base Excess Tomas Test Carboxyhemoglobin Methemoglobin O2 Delivery Device Oxygen Flow Rate Sodium Potassium Chloride Carbon Dioxide Anion Gap BUN Creatinine Creat Clearance w eGFR Random Glucose Lactic Acid 7.5 H* Calcium Phosphorus 2.2 L Magnesium Total Bilirubin Direct Bilirubin AST ALT Alkaline Phosphatase Ammonia LD Total Creatine Kinase Troponin I Total Protein Albumin Lipase Vitamin B12 Serum Folate 5 Urine Color Urine Appearance Urine pH Ur Specific [place] Urine Protein Urine Glucose (UA) Urine Ketones Urine Blood Urine Nitrite Urine Bilirubin Urine Urobilinogen Ur Leukocyte Esterase Urine WBC (Auto) Urine RBC (Auto) Urine Mucus Blood Type Antibody Screen Antibody Identification 08/29/17 08/29/17 08/29/17 21:40 21:40 21:40 WBC Corrected WBC (auto) RBC Hgb Hct MCV MCH MCHC RDW Plt Count MPV Total Counted Neutrophils % Neutrophils % (Manual) Band Neutrophils % Lymphocytes % Lymphocytes % (Manual) Monocytes % (Manual) Myelocytes % (Man) Nucleated RBC % Metamyelocytes Platelet Estimate Anisocytosis Microcytosis Macrocytosis Target Cells Retic Count PT with INR INR PTT (Actin FS) Fibrinogen Puncture Site ABG pH ABG pCO2 at Pt Temp ABG pO2 at Pt Temp ABG HCO3 ABG O2 Sat (Measured) ABG O2 Content ABG Base Excess Tomas Test Carboxyhemoglobin Methemoglobin O2 Delivery Device Oxygen Flow Rate Sodium Potassium Chloride Carbon Dioxide Anion Gap BUN Creatinine Creat Clearance w eGFR Random Glucose Lactic Acid 6.6 H* Calcium Phosphorus Magnesium Total Bilirubin Direct Bilirubin 10.5 H AST ALT Alkaline Phosphatase Ammonia < 10.0 L LD Total Creatine Kinase Troponin I Total Protein Albumin Lipase Vitamin B12 Serum Folate Urine Color Urine Appearance Urine pH Ur Specific [place] Urine Protein Urine Glucose (UA) Urine Ketones Urine Blood Urine Nitrite Urine Bilirubin Urine Urobilinogen Ur Leukocyte Esterase Urine WBC (Auto) Urine RBC (Auto) Urine Mucus Blood Type Antibody Screen Antibody Identification 08/29/17 08/30/17 08/30/17 21:40 00:12 01:00 WBC Corrected WBC (auto) RBC Hgb Hct MCV MCH MCHC RDW Plt Count MPV Total Counted Neutrophils % Neutrophils % (Manual) Band Neutrophils % Lymphocytes % Lymphocytes % (Manual) Monocytes % (Manual) Myelocytes % (Man) Nucleated RBC % Metamyelocytes Platelet Estimate Anisocytosis Microcytosis Macrocytosis Target Cells Retic Count PT with INR INR PTT (Actin FS) Fibrinogen 394.0 Puncture Site ABG pH ABG pCO2 at Pt Temp ABG pO2 at Pt Temp ABG HCO3 ABG O2 Sat (Measured) ABG O2 Content ABG Base Excess Tomas Test Carboxyhemoglobin Methemoglobin O2 Delivery Device Oxygen Flow Rate Sodium Potassium Chloride Carbon Dioxide Anion Gap BUN Creatinine Creat Clearance w eGFR Random Glucose Lactic Acid 7.6 H* Calcium Phosphorus Magnesium Total Bilirubin Direct Bilirubin AST ALT Alkaline Phosphatase Ammonia LD Total Creatine Kinase 55 Troponin I < 0.02 Total Protein Albumin Lipase Vitamin B12 Serum Folate Urine Color Urine Appearance Urine pH Ur Specific [place] Urine Protein Urine Glucose (UA) Urine Ketones Urine Blood Urine Nitrite Urine Bilirubin Urine Urobilinogen Ur Leukocyte Esterase Urine WBC (Auto) Urine RBC (Auto) Urine Mucus Blood Type Antibody Screen Antibody Identification 08/30/17 08/30/17 08/30/17 01:00 05:00 05:00 WBC Corrected WBC (auto) RBC Hgb Hct MCV MCH MCHC RDW Plt Count MPV Total Counted Neutrophils % Neutrophils % (Manual) Band Neutrophils % Lymphocytes % Lymphocytes % (Manual) Monocytes % (Manual) Myelocytes % (Man) Nucleated RBC % Metamyelocytes Platelet Estimate Anisocytosis Microcytosis Macrocytosis Target Cells Retic Count PT with INR 34.10 H INR 3.02 H PTT (Actin FS) 40.0 H D Fibrinogen 359.0 Puncture Site ABG pH ABG pCO2 at Pt Temp ABG pO2 at Pt Temp ABG HCO3 ABG O2 Sat (Measured) ABG O2 Content ABG Base Excess Tomas Test Carboxyhemoglobin Methemoglobin O2 Delivery Device Oxygen Flow Rate Sodium 134 L Potassium 4.6 Chloride 101 Carbon Dioxide 16 L Anion Gap 17 H BUN 27 H D Creatinine 1.9 H D Creat Clearance w eGFR 26.13 Random Glucose 36 L* D 81 D Lactic Acid Calcium 7.2 L Phosphorus 2.8 D Magnesium 1.8 Total Bilirubin 14.3 H Direct Bilirubin AST 192 H ALT 77 Alkaline Phosphatase 220 H D Ammonia LD Total Creatine Kinase Troponin I Total Protein 4.9 L Albumin 2.0 L Lipase Vitamin B12 Serum Folate Urine Color Urine Appearance Urine pH Ur Specific [place] Urine Protein Urine Glucose (UA) Urine Ketones Urine Blood Urine Nitrite Urine Bilirubin Urine Urobilinogen Ur Leukocyte Esterase Urine WBC (Auto) Urine RBC (Auto) Urine Mucus Blood Type Antibody Screen Antibody Identification Active Medications Generic Name Dose Route Start Last Admin Trade Name Freq PRN Reason Stop Dose Admin Chlorhexidine Gluconate 1 applic 08/29/17 22:00 08/30/17 01:32 Hibiclens For Decolonization - TP Not Given HS [facility] Sodium Chloride 1,000 mls @ 100 mls/hr 08/29/17 16:54 08/29/17 17:09 Normal Saline - IV 100 mls/hr ASDIR KLAUS Administration Mupirocin 1 applic 08/29/17 22:00 08/30/17 01:33 Bactroban Ointment (For Decolonization) - NS 09/03/17 21:59 1 applic BID KLAUS Administration Oxycodone HCl 10 mg 08/30/17 00:33 Roxicodone - PO Q4H PRN PAIN Piperacillin Sod/Tazobactam Sod 3.375 gm 08/30/17 10:00 Zosyn 3.375gm Ivpb (Pre-Docked) IVPB BID [facility] Protocol Micro: Urine, blood, port cx pending CXR 08/29 - Since 08/08/2017, the bilateral pulmonary and pleural changes with right port persist. CXR 08/30 - Worsening of BL pleural effusions/congestion. LE Duplex 08/29: Negative for DVTs CT scan of chest/abdomen 08/29 - 1. Moderate bilateral pleural effusions with loculations as described above. 2. Atelectatic changes of both lower lobes. 3. Ascites. 4. Heterogeneous liver consistent with diffuse metastases, although discrete lesions cannot be delineated without intravenous contrast. 5. Anasarca. 6. Extensive sclerotic bony metastases. Please see above discussion. RUQ/Renal/Pelvic U/S 08/30 - IMPRESSION: 1. Enlarged and heterogeneous liver. 2. No evidence of hydronephrosis or acute renal pathology. 3. Small amount of ascites. Markedly limited study as described above. ASSESSMENT/PLAN: 72 yo woman with pmh of HTN, fibromyalgia, and metastatic breast cancer (bone mets; liver?), with chronic pleural effusions who presents with one week of worsening fatigue s/p chemo tx, found to by hypotensive today during outpt visit to Dr. Smith's office, now admitted for sepsis secondary to SBP vs. Empyema vs. UTI. Pt currently receiving zosyn/gentamycin for GNR severe sepsis, w/ low MAPs requiring pressor support. Pt w/ extensive metastatic liver dz w/ intrahepatic cholestasis secondary to tumor burden. Hypoalbuminemic due to minimal hepatic synthetic function, diffuse anasarca due to decreased intravascular oncotic pressure and portal hypertension. Prognosis grim. #Sepsis 2/2 likely secondary to SBP vs. empyema vs. UTI - Afebrile, now with elevated WBC 7.6 -> 16.1. Chemotx one week ago. Chronic pleural effusions w/ loculations on CT scan. - ID consulted. Recommend continuing zosyn, addition of gentamycin. Day 2 of zosyn - Trend lactate q4h. Most recent 7.6 -> 8.0. Trending upward. Likely mixed type A and B - IVFs - Monitor for hypotension. If MAP<65, bolus 500ml LR - BCx + GNR non-lactose fermenting - Consider diagnostic thoracentesis/paracentesis to r/o empyema/SBP - Pressors to maintain MAP >60 - May require port removal, however no erythema, puss or drainage noted at site - Strict Is and Os #End-stage liver disease - T bili 15 on admission. Pt severely jaundiced. D Bili 10.5 08/30 - GI consulted. Pt w/ intrahepatic cholestasis secondary to numerous metastatic tumors in liver. Recommend MRI of abdomen if needed for further characterization or palliative possible stenting. - Hepatomegaly on abdominal CT w/ diffuse heterogenous liver dz, likely mets - MELD score of 33-> 35 - Pt unable to maintain intravascular volume secondary to hypoalbuminemia/ portal hypertension #Metastatic Breast Ca - Received chemotx one week ago. Hematopoetic disorder secondary to bone mets -Heme/onc consulted. Rec appreciated. -Diffuse metastatic dz -RBC abnormalities likely secondary to bone mets. RDW, nucleated RBCs increased. F/u retic count -Vitamin b12, folate, LDH sent #CHRISSY likely pre-renal 2/2 sepsis - - Cr 1.4 -> 1.9 today - No renal pathology on renal U/S - IVFs (colloid) - Daily BMPs, trend Cr. - Renal consulted. Recommend diuresis and stopping fluids. CHRISSY likely due to hypotension secondary to sepsis. f/u echo, renal U/S - Urine lytes, Cr to calc fena #?Hx of HTN - Hypotensive on admission - Monitor BP - No home HTN meds #?DM2 - BG 81 this AM, no home insulin. - Hold home janumet given renal/hepatic toxicity - ISS once BGMs stable - BGM q4h - A1C 4.9 FEN: Fluids: D5NS 100cc/hr Electrolytes: Daily BMPs, monitor Cr Nutrition: Diabetic diet PPX: SCDs Dispo: Pt prognosis grave. Severe metastatic dz with concurrent liver failure. Full code currently. Will stock broker another family meeting tomorrow for GOC discussion. Plan discussed with attending, Dr. Darin Arias, PGY1 Visit type - Emergency Visit Emergency Visit: Yes ED Registration Date: 08/29/17 Care time: The patient presented to the Emergency Department on the above date and was hospitalized for further evaluation of their emergent condition. - New Patient This patient is new to me today: No - Critical Care Critical Care patient: Yes Total Critical Care Time (in minutes): 45 Critical Care Statement: The care of this patient involved high complexity decision making to prevent further life threatening deterioration of the patient 's condition and/or to evaluate & treat vital organ system(s) failure or risk of failure.
--- NOTE | 2017-08-30 09:14 | PN ---
Progress Note, Physician Chief Complaint: ID Full note dicated - Current Medication List Current Medications: Active Medications Chlorhexidine Gluconate (Hibiclens For Decolonization -) 1 applic TP HS [facility] Last Admin: 08/30/17 01:32 Dose: Not Given Sodium Chloride (Normal Saline -) 1,000 mls @ 100 mls/hr IV ASDIR KLAUS Last Admin: 08/29/17 17:09 Dose: 100 mls/hr Mupirocin (Bactroban Ointment (For Decolonization) -) 1 applic NS BID [facility] Stop: 09/03/17 21:59 Last Admin: 08/30/17 01:33 Dose: 1 applic Oxycodone HCl (Roxicodone -) 10 mg PO Q4H PRN PRN Reason: PAIN Piperacillin Sod/Tazobactam Sod (Zosyn 3.375gm Ivpb (Pre-Docked)) 3.375 gm IVPB BID KLAUS PRN Reason: Protocol - Objective Vital Signs: Vital Signs Temperature 98.5 F 08/30/17 02:00 Pulse Rate 116 H 08/30/17 08:00 Respiratory Rate 18 08/30/17 08:00 Blood Pressure 81/66 08/30/17 08:00 O2 Sat by Pulse Oximetry (%) 98 08/29/17 19:19 HENT: Yes: WNL, Atraumatic. No: Thrush Neck: Yes: Supple Cardiovascular: Yes: Regular Rate and Rhythm, S1, S2, Other (Port) Respiratory: Yes: WNL, Regular, CTA Bilaterally Gastrointestinal: Yes: Soft, Ascites. No: Tenderness Edema: Yes Labs: CBC, BMP 08/30/17 05:00 INR, PTT INR 3.02 (0.82-1.09) H 08/30/17 05:00 Fibrinogen 359.0 mg/dL (238-498) 08/30/17 05:00 Problem List - Problems (1) CHRISSY (acute kidney injury) Code(s): N17.9 - ACUTE KIDNEY FAILURE, UNSPECIFIED (2) Breast CA Code(s): C50.919 - MALIGNANT NEOPLASM OF UNSP SITE OF UNSPECIFIED FEMALE BREAST (3) Sepsis Code(s): A41.9 - SEPSIS, UNSPECIFIED ORGANISM Assessment/Plan Microbiology 08/29/17 12:21 Blood - Sofia Cath Blood Culture - Preliminary Pending Organism 08/29/17 11:40 Blood - Sofia Cath Blood Culture - Preliminary Pending Organism Laboratory Tests 08/29/17 08/29/17 08/29/17 12:16 12:21 12:34 WBC 7.6 RBC 3.49 L Hgb 11.1 Hct 34.3 Plt Count 249 D Neutrophils % (Manual) 52.0 Band Neutrophils % 20.0 Lymphocytes % (Manual) 16.0 D INR ABG pH 7.38 ABG pCO2 at Pt Temp 25.0 L ABG pO2 at Pt Temp 94.0 Oxygen Flow Rate 2 BUN Random Glucose Lactic Acid Total Bilirubin AST ALT Alkaline Phosphatase Urine WBC (Auto) 16 Urine RBC (Auto) 1 08/30/17 08/30/17 08/30/17 01:00 01:00 05:00 WBC RBC Hgb Hct Plt Count Neutrophils % (Manual) Band Neutrophils % Lymphocytes % (Manual) INR ABG pH ABG pCO2 at Pt Temp ABG pO2 at Pt Temp Oxygen Flow Rate BUN 27 H D Random Glucose 36 L* D 81 D Lactic Acid 7.6 H* Total Bilirubin 14.3 H AST 192 H ALT 77 Alkaline Phosphatase 220 H D Urine WBC (Auto) Urine RBC (Auto) 08/30/17 05:00 WBC RBC Hgb Hct Plt Count Neutrophils % (Manual) Band Neutrophils % Lymphocytes % (Manual) INR 3.02 H ABG pH ABG pCO2 at Pt Temp ABG pO2 at Pt Temp Oxygen Flow Rate BUN Random Glucose Lactic Acid Total Bilirubin AST ALT Alkaline Phosphatase Urine WBC (Auto) Urine RBC (Auto) Assessment Sepsis syndrome source unclear urinary tract port and SBP considered Metatstatic CA Hepatic failure Acute kidney injury Plan Now that we have positive blood culture for GNB Will continue with Zosyn and dose of gentamicin pending cultures. Thoracentesis and paracentesis for cultures considered. However given advanced metatstatic CA I am inclined to take less aggressive approach and defer procedures for now. Yasir BHATT
[2017-08-30] MEDS ORDERED: GENTAMICIN INJECTION 120 MG in SODIUM CHLORIDE 100 ML IVPB ONE (09:17)
[2017-08-30] MEDS ORDERED: METRONIDAZOLE 500 MG PREMIXED 500 MG/100 ML MG IVPB SCH (10:00)
[2017-08-30] MEDS ORDERED: ENOXAPARIN NA (PORCINE) 30 MG/0.3 ML DISP.SYRIN SQ SCH ×2 (10:00)
[2017-08-30] MEDS ORDERED: PIPERACILLIN/TAZOB 3.375 GM/50 ML PRE-DOCKED IVPB SCH (10:00)
[2017-08-30] MEDS ORDERED: INSULIN (NOVOLOG) ASPART 100 UNITS/ML 10ML VIAL ONE (10:03)
[2017-08-30] MEDS ORDERED: PT OWN MED DRAWER 7, Y5N ONE ×4 (10:03→21:14)
--- NOTE | 2017-08-30 11:38 | EKG ---
Test Reason : Blood Pressure : / mmHG Vent. Rate : 120 BPM Atrial Rate : 120 BPM P-R Int : 122 ms QRS Dur : 078 ms QT Int : 312 ms P-R-T Axes : 029 -06 035 degrees QTc Int : 440 ms SINUS TACHYCARDIA LOW VOLTAGE QRS SEPTAL INFARCT (CITED ON OR BEFORE 25-DEC-2013) ABNORMAL ECG WHEN COMPARED WITH ECG OF 30-AUG-2016 12:32, NO SIGNIFICANT CHANGE WAS FOUND Confirmed by GIO BHATT, GENEVIEVE ([id number]) on 08/30/2017 11:38:20 AM Referred By: Confirmed By:GENEVIEVE POWERS MD
[2017-08-30] MEDS ORDERED: PHYTONADIONE 5 MG TABLET PO ONE (11:59)
[2017-08-30] MEDS: PIPERACILLIN/TAZOB 2.25 GM 2.25 GM in DEXTROSE 5%-WATER - 50 ML IVPB SCH ×3 (12:24→21:34)
[2017-08-30 12:29] LABS: MCH 32.2 pg (25.7-33.7); MCHC 31.4 g/dl (32.0-36.0); MEAN CELL VOLUME 102.5 fl (80-96); MEAN PLT VOLUME 9.4 fl (7.5-11.1); PLATELET COUNT 170 K/MM3 (134-434); RDW 26.3 % (11.6-15.6)
[2017-08-30 12:32] LABS: WHITE BLOOD COUNT 16.1 K/mm3 (4.0-10.0)
--- NOTE | 2017-08-30 12:39 | CONSULT ---
Consult Consult Specialty:: Nephrology Reason for Consultation:: CHRISSY - History of Present Illness Chief Complaint: sent in for hypotension History of Present Illness: Pt is a 72 year old female with pmhx of metastatic breast cancer, malignant pleural effusions, HTN, and fibromyalgia who was sent in for the doctor's office for hypotension and tachycardia. She was found to be in acute renal failure and found to have a lactic acidosis. She is awake and says she feels a little better than yesterday. She is not a great historian. She complains of generalized edema. She denies fevers or chills. She has chronic shortness of breath. She denies dysuria or hematuria. She denies nsaid use. Pt admitted to ICU for further management. Pt was on diuretics at home. Pt was also found to have gram neg bacteremia. - History Source History Provided By: Patient, Medical Record - Past Medical History Cardio/Vascular: Yes: HTN Pulmonary: Yes: COPD Gastrointestinal: Yes: Ascites Hepatobiliary: Yes: Other (Liver mass) Heme/Onc: Yes: Other (breast cancer) Endocrine: Yes: Diabetes Mellitus - Past Surgical History Past Surgical History: Yes: Hysterectomy, Mastectomy - Alcohol/Substance Use Hx Alcohol Use: No - Smoking History Smoking history: Former smoker Have you smoked in the past 12 months: No If you are a former smoker, when did you quit?: 1989 - Social History ADL: Independent History of Recent Travel: No Home Medications - Allergies Allergies/Adverse Reactions: Allergies Allergy/AdvReac Type Severity Reaction Status Date / Time No Known Drug Allergies Allergy Verified 08/29/17 11:40 - Home Medications Home Medications: Ambulatory Orders Xalatan 0.005% Eye Drops - 1 drop OU HS 09/01/16 Sitagliptin Phos/Metformin HCl [Janumet Xr 50-500 mg Tablet] 1 each PO DAILY Furosemide 20 mg PO DAILY 02/28/17 Potassium 1 tab PO DAILY 08/06/17 Family Disease History - Family Disease History Family History: Denies Review of Systems - Review of Systems Constitutional: reports: Malaise Eyes: reports: No Symptoms HENT: reports: No Symptoms Neck: reports: No Symptoms Cardiovascular: reports: Edema, Shortness of Breath Respiratory: reports: Cough, SOB, SOB on Exertion Gastrointestinal: reports: No Symptoms Genitourinary: reports: No Symptoms Musculoskeletal: reports: No Symptoms Integumentary: reports: No Symptoms Neurological: reports: No Symptoms Endocrine: reports: No Symptoms Hematology/Lymphatic: reports: No Symptoms Psychiatric: reports: No Symptoms Physical Exam Vital Signs: Vital Signs Temperature 98.2 F 08/30/17 10:00 Pulse Rate 112 H 08/30/17 10:23 Respiratory Rate 18 08/30/17 10:00 Blood Pressure 74/47 08/30/17 10:00 O2 Sat by Pulse Oximetry (%) 98 08/30/17 10:23 Constitutional: Yes: Calm Eyes: Yes: Conjunctiva Clear HENT: Yes: Atraumatic Cardiovascular: Yes: S1, S2 Respiratory: Yes: Diminished, On Nasal O2 Gastrointestinal: Yes: Soft Renal/: Yes: Incontinence Musculoskeletal: Yes: Muscle Weakness Edema: Yes Edema: LUE: 1+, RUE: 1+, LLE: 2+, RLE: 2+ Integumentary: Yes: Other (lesion over chest wall) Neurological: Yes: Oriented Psychiatric: Yes: Oriented Labs: CBC, BMP 08/30/17 05:00 08/30/17 05:00 Laboratory Tests 08/29/17 08/29/17 08/29/17 12:15 12:15 12:16 WBC 7.6 Hgb 11.1 Plt Count 249 D ABG pH ABG pCO2 at Pt Temp ABG pO2 at Pt Temp ABG HCO3 ABG O2 Sat (Measured) ABG O2 Content Sodium Potassium Chloride Carbon Dioxide Anion Gap BUN Creatinine 1.4 H D Lactic Acid 10.3 H* LD Total Urine Protein Urine Blood 08/29/17 08/29/17 08/29/17 12:21 12:34 15:30 WBC Hgb Plt Count ABG pH 7.38 ABG pCO2 at Pt Temp 25.0 L ABG pO2 at Pt Temp 94.0 ABG HCO3 14.5 L* ABG O2 Sat (Measured) 97.5 ABG O2 Content 15.5 Sodium Potassium Chloride Carbon Dioxide Anion Gap BUN Creatinine Lactic Acid 8.1 H* LD Total Urine Protein 1+ H Urine Blood 1+ H 08/29/17 08/29/17 08/29/17 15:30 18:00 21:40 WBC Hgb Plt Count ABG pH ABG pCO2 at Pt Temp ABG pO2 at Pt Temp ABG HCO3 ABG O2 Sat (Measured) ABG O2 Content Sodium Potassium Chloride Carbon Dioxide Anion Gap BUN Creatinine Lactic Acid 7.5 H* 6.6 H* LD Total 381 H Urine Protein Urine Blood 08/30/17 08/30/17 08/30/17 01:00 05:00 08:40 WBC Hgb Plt Count ABG pH ABG pCO2 at Pt Temp ABG pO2 at Pt Temp ABG HCO3 ABG O2 Sat (Measured) ABG O2 Content Sodium 134 L Potassium 4.6 Chloride 101 Carbon Dioxide 16 L Anion Gap 17 H BUN 27 H D Creatinine 1.9 H D Lactic Acid 7.6 H* 8.0 H* LD Total Urine Protein Urine Blood Imaging - Results Chest X-ray: Report Reviewed Cat Scan: Report Reviewed Problem List - Problems (1) CHRISSY (acute kidney injury) Code(s): N17.9 - ACUTE KIDNEY FAILURE, UNSPECIFIED (2) Breast CA Code(s): C50.919 - MALIGNANT NEOPLASM OF UNSP SITE OF UNSPECIFIED FEMALE BREAST (3) Hyperbilirubinemia Code(s): E80.6 - OTHER DISORDERS OF BILIRUBIN METABOLISM (4) Hypotension Code(s): I95.9 - HYPOTENSION, UNSPECIFIED (5) Sepsis Code(s): A41.9 - SEPSIS, UNSPECIFIED ORGANISM (6) Transaminitis Code(s): R74.0 - NONSPEC ELEV OF LEVELS OF TRANSAMNS & LACTIC ACID DEHYDRGNSE Assessment/Plan Current Medications Generic Name Dose Route Start Last Admin Trade Name Freq PRN Reason Stop Dose Admin Chlorhexidine Gluconate 1 applic 08/29/17 22:00 08/30/17 01:32 Hibiclens For Decolonization - TP Not Given HS KLAUS Sodium Chloride 1,000 mls @ 100 mls/hr 08/29/17 16:54 08/29/17 17:09 Normal Saline - IV 100 mls/hr ASDIR KLAUS Administration Piperacillin Sod/Tazobactam 50 mls @ 100 mls/hr 08/30/17 09:30 08/30/17 12:24 Sod 2.25 gm/ Dextrose IVPB 100 mls/hr Q6H-IV KLAUS Administration Protocol Mupirocin 1 applic 08/29/17 22:00 08/30/17 12:25 Bactroban Ointment (For Decolonization) - NS 09/03/17 21:59 1 applic BID KLAUS Administration Oxycodone HCl 10 mg 12/07/17 00:33 Roxicodone - PO Q4H PRN PAIN Phytonadione 5 mg 08/30/17 11:59 Mephyton - PO 08/30/17 12:00 DAILY ONE Impression 1. CHRISSY 2. breast cancer with mets 3. pleural effusions 4. ascites 5. hx HTN 6. gram neg bacteremia 7. sepsis 8. lactic acidosis 9. hyperbili/liver failure Plan - pt appears volume overloaded - recommend stopping fluids and using diuretics - monitor LFTs and get GI eval - check ultrasound kidneys and bladder - check echo - cont abx - cont to follow blood cultures and repeat until negative - monitor lactic acid levels, may have a mixed type A and B lactic acidosis as she is septic/hypotensive and she has metastatic disease - CHRISSY likely from sepsis and hypotension - monitor blood pressure - check urine lytes and health aid to calc fena - will follow Dr Vital
[2017-08-30] MEDS ORDERED: NOREPINEPHRINE BITARTRATE 4 MG/4 ML ML IV ONE ×2 (12:46→20:34)
[2017-08-30 13:50] LABS: METAMYELOCYTE 9 % (0-2); MYELOCYTE 1 % (0-2); NUCLEATED RED BLOOD CELL 9 % (0-0); TOTAL CELLS COUNTED 100
[2017-08-30 13:51] LABS: PLATELET COMMENTS MODERATE LARGE PLTS; PLATELET ESTIMATE ADEQUATE
--- NOTE | 2017-08-30 13:54 | CON.GI ---
Consult Consult Specialty:: GI Reason for Consultation:: abnormal liver enzymens, imaging - History of Present Illness History of Present Illness: 72 yof with HTN, fibromyalgia, and metastatic breast cancer (bone, liver), with chronic pleural effusions who presents with one week of worsening fatigue s/p chemo tx, found to be hypotensive to 60/40 on onc outpatient visit and sent to ED. Found to have PT 34, elevated BUN, Cr, T bili 14, direct 10, ALP 360, Ast 192, normal ALT. CT a/p w/o suggestive of metastatic liver disease. A CT a/p w/ o 05/24/2017 - "innumerable metastatic lesion nearly replacing the liver, progressed since 2014". The history is from medical records as pt is too weak and lethargic. - History Source History Provided By: Medical Record Limitations to Obtaining History: Clinical Condition - Past Medical History Cardio/Vascular: Yes: HTN Pulmonary: Yes: COPD Gastrointestinal: Yes: Ascites Hepatobiliary: Yes: Other (Liver mass) Endocrine: Yes: Diabetes Mellitus - Past Surgical History Past Surgical History: Yes: Hysterectomy, Mastectomy - Alcohol/Substance Use Hx Alcohol Use: No - Smoking History Smoking history: Former smoker Have you smoked in the past 12 months: No If you are a former smoker, when did you quit?: 1989 - Social History ADL: Independent History of Recent Travel: No Home Medications - Allergies Allergies/Adverse Reactions: Allergies Allergy/AdvReac Type Severity Reaction Status Date / Time No Known Drug Allergies Allergy Verified 08/29/17 11:40 - Home Medications Home Medications: Ambulatory Orders Xalatan 0.005% Eye Drops - 1 drop OU HS 09/01/16 Sitagliptin Phos/Metformin HCl [Janumet Xr 50-500 mg Tablet] 1 each PO DAILY Furosemide 20 mg PO DAILY 02/28/17 Potassium 1 tab PO DAILY 08/06/17 Family Disease History - Family Disease History Family History: Unremarkable Review of Systems Findings/Remarks: please refer to H&P Physical Exam-GI Vital Signs: Vital Signs Temperature 98.2 F 08/30/17 10:00 Pulse Rate 113 H 08/30/17 12:00 Respiratory Rate 18 08/30/17 12:00 Blood Pressure 94/44 08/30/17 12:00 O2 Sat by Pulse Oximetry (%) 98 08/30/17 10:23 Constitutional: Yes: Calm Eyes: Yes: Sclera Icterus HENT: Yes: Atraumatic Cardiovascular: Yes: Regular Rate and Rhythm Respiratory: Yes: Regular Gastrointestinal Inspection: Yes: Distention ...Palpate: Yes: Soft. No: Tenderness Edema: Yes Neurological: Yes: Lethargy Labs: CBC, BMP 08/30/17 05:00 08/30/17 05:00 INR, PTT INR 3.02 (0.82-1.09) H 08/30/17 05:00 Fibrinogen 359.0 mg/dL (238-498) 08/30/17 05:00 CBCD WBC 16.1 K/mm3 (4.0-10.0) H D 08/30/17 05:00 RBC 3.03 M/mm3 (3.60-5.2) L 08/30/17 05:00 Hgb 9.7 GM/dL (10.7-15.3) L D 08/30/17 05:00 Hct 31.0 % (32.4-45.2) L 08/30/17 05:00 MCV 102.5 fl (80-96) H 08/30/17 05:00 MCHC 31.4 g/dl (32.0-36.0) L 08/30/17 05:00 RDW 26.3 % (11.6-15.6) H 08/30/17 05:00 Plt Count 170 K/MM3 (134-434) D 08/30/17 05:00 MPV 9.4 fl (7.5-11.1) 08/30/17 05:00 CMP Sodium 134 mmol/L (136-145) L 08/30/17 05:00 Potassium 4.6 mmol/L (3.5-5.1) 08/30/17 05:00 Chloride 101 mmol/L (98-107) 08/30/17 05:00 Carbon Dioxide 16 mmol/L (21-32) L 08/30/17 05:00 Anion Gap 17 (8-16) H 08/30/17 05:00 BUN 27 mg/dL (7-18) H D 08/30/17 05:00 Creatinine 1.9 mg/dL (0.55-1.02) H D 08/30/17 05:00 Creat Clearance w eGFR 26.13 (>60) 08/30/17 05:00 Calcium 7.2 mg/dL (8.5-10.1) L 08/30/17 05:00 Total Bilirubin 14.3 mg/dL (0.2-1.0) H 08/30/17 05:00 AST 192 U/L (15-37) H 08/30/17 05:00 ALT 77 U/L (12-78) 08/30/17 05:00 Alkaline Phosphatase 220 U/L (45-117) H D 08/30/17 05:00 Total Protein 4.9 g/dl (6.4-8.2) L 08/30/17 05:00 Albumin 2.0 g/dl (3.4-5.0) L 08/30/17 05:00 Imaging - Results Cat Scan: Report Reviewed (05/24/17 and on this admission) Problem List - Problems (1) Breast cancer metastasized to liver Code(s): C50.919 - MALIGNANT NEOPLASM OF UNSP SITE OF UNSPECIFIED FEMALE BREAST ; C78.7 - SECONDARY MALIG NEOPLASM OF LIVER AND INTRAHEPATIC BILE DUCT Assessment/Plan A 72 yof with metastatic to liver and bone breast cancer. Now with cholestasis. No signs of cholangitis. This is very likely intrahepatic cholestasis due to "innumerable" liver mets. The prognosis is very poor. Supportive care low/free fat diet MRCP may help to identify extrahepatic biliary duct obstruction, if any, that could be amendable to paliative stenting, however given the CT findings, strongly suspect multifocal, intrahepatic obstruction.
[2017-08-30] MEDS: DEXTROSE 5%-NORMAL SALINE 1,000 ML IV SCH (14:00)
--- NOTE | 2017-08-30 14:39 | CONS ---
INFECTIOUS DISEASE CONSULTATION DATE OF CONSULTATION: DATE OF DICTATION: 08/29/2017 LOCATION: Intensive care unit. HISTORY OF PRESENT ILLNESS: The patient is a 72-year-old female with known metastatic breast cancer, who I am asked to see in the intensive care unit with diagnosis of sepsis syndrome. She has known metastatic breast cancer; for which, she has been given weekly chemotherapy through a Port-A-Cath. Her last chemotherapy was August 22. She was apparently seen in the outpatient setting yesterday and referred because of hypotension and generalized weakness. Clinically, the patient was thought to have sepsis syndrome and brought to the intensive care unit after being given a dose of vancomycin and Zosyn. She has blood cultures which are now positive for gram-negative karyn in all 4 bottles. She is a poor historian and was unwilling to answer most questions due to generalized weakness. She denies any abdominal pain or urinary complaints. A CAT scan of the chest showed moderate bilateral pleural effusions with loculations and atelectasis of both lower lobes. Liver metastases were noted with ascites. Sclerotic bony metastases are also mentioned. The patient's blood sugar was noted to be 36 earlier today, and her lactic acid is 7.7. Her bilirubin is 14.3. PAST MEDICAL HISTORY: Includes hypertension, fibromyalgia, malignant pleural effusion, diabetes mellitus. MEDICATIONS: Recent chemotherapy, Janumet, Lasix, potassium. ALLERGIES: None known. SOCIAL HISTORY: Former smoker, gave this up in 1989. HIV status unknown. No history of alcohol use. No recent travel. FAMILY HISTORY: Noncontributory. REVIEW OF SYSTEMS: Respiratory: Mild shortness of breath. No cough, chest pain. Cardiac: No chest pain, palpitations, syncope, murmur. Gastrointestinal: Denies abdominal pain, nausea, vomiting, and diarrhea. Genitourinary: No dysuria, hematuria, urinary frequency. PHYSICAL EXAMINATION: General: She was an alert woman who appeared in [id number] distress. Vital Signs: The temperature was 98.5, pulse 116, blood pressure 80/60, respirations 18, O2 saturation 98% 3 L nasal cannula. HEENT: Sclerae icteric. Oropharynx without exudate, thrush. Neck: Supple. No adenopathy. Chest: Infiltration of tumor in the chest wall bilaterally with right Port-A-Cath. Lungs: Diminished breath sounds bilaterally. Heart: S1, S2. Regular rhythm without audible murmur or gallop. Abdomen: Soft, not distended, hypoactive bowel sounds. No guarding, rebound tenderness. Positive fluid wave. Extremities: Bilateral lower extremity pitting edema. DIAGNOSTIC DATA: The white count 7.6, hemoglobin 11, platelets of 249 with left shift, 20% bands, 14% nucleated red blood cells, 6 metamyelocytes. INR of 3.3. ABG 7.38, 25, 94. BUN 27, creatinine 1.9. Glucose 36, now 81. Bilirubin 14.3. AST 192, alkaline phosphatase 220. Urine with 16 WBCs, 1 RBC. ASSESSMENT: A 72-year-old female with known metastatic breast cancer to bone and liver, receiving chemotherapy weekly, presents with sepsis syndrome manifested by hypothyroidism, tachycardia, hypoxemia, and hypoglycemia, has elevated lactic acid with 4/4 blood cultures gram-negative bacilli. Source of the bacteremia unclear. Differential diagnosis would include urinary tract infection, spontaneous bacterial peritonitis from her ascites, infected pleural effusions, and lastly, the port itself as a possible source. Obviously, she is immunocompromised by virtue of her recent, ongoing chemotherapy and neoplasm. PLAN: Empiric therapy with piperacillin/tazobactam, adjusted for creatinine clearance. A dose of gentamicin to be given but no further aminoglycoside given, concern for possible hepatorenal syndrome. Await final culture results. Regarding diagnostic thoracentesis and/or paracentesis, I am inclined to defer these tests just given the extensive nature of her metastatic disease. Recommendations were discussed with the house staff. Forty minutes were spent reviewing the case and providing critical care review of her entire chart, formulating a plan, and writing antibiotic orders. JOSE CHEUNG M.D. [id number]
--- NOTE | 2017-08-30 16:18 | PN ---
Progress Note (short form) - Note Progress Note: Patient seen and examined patient is lethargic but arousable Sys she is slightly better Last Vital Signs Temp Pulse Resp BP Pulse Ox 98.6 F 117 H 18 118/54 98 08/30/17 21:00 08/30/17 19:00 08/30/17 19:00 08/30/17 19:30 08/30/17 10:23 Cor: RSR, No murmurs, No gallops Lungs: Clear to P&A Abd: Soft, Normal bowel sounds, No organomegaly Ext:No significant edema Abnormal Lab Results 08/30/17 08/30/17 08/30/17 01:00 01:00 05:00 WBC 16.1 H D RBC 3.03 L Hgb 9.7 L D Hct 31.0 L MCV 102.5 H MCHC 31.4 L RDW 26.3 H Lymphocytes % (Manual) 7.0 L D Nucleated RBC % 9 H Metamyelocytes 9 H D PT with INR INR PTT (Actin FS) Sodium Carbon Dioxide Anion Gap BUN Creatinine Random Glucose 36 L* D Lactic Acid 7.6 H* Calcium Total Bilirubin AST Alkaline Phosphatase Total Protein Albumin 08/30/17 08/30/17 08/30/17 05:00 05:00 08:40 WBC RBC Hgb Hct MCV MCHC RDW Lymphocytes % (Manual) Nucleated RBC % Metamyelocytes PT with INR 34.10 H INR 3.02 H PTT (Actin FS) 40.0 H D Sodium 134 L Carbon Dioxide 16 L Anion Gap 17 H BUN 27 H D Creatinine 1.9 H D Random Glucose Lactic Acid 8.0 H* Calcium 7.2 L Total Bilirubin 14.3 H AST 192 H Alkaline Phosphatase 220 H D Total Protein 4.9 L Albumin 2.0 L Active Medications Generic Name Dose Route Start Last Admin Trade Name Freq PRN Reason Stop Dose Admin Chlorhexidine Gluconate 1 applic 08/29/17 22:00 08/30/17 21:35 Hibiclens For Decolonization - TP 1 applic HS KLAUS Administration Piperacillin Sod/Tazobactam 50 mls @ 100 mls/hr 08/30/17 09:30 08/30/17 21:34 Sod 2.25 gm/ Dextrose IVPB 100 mls/hr Q6H-IV KLAUS Administration zee Dextrose/Sodium Chloride 1,000 mls @ 100 mls/hr 08/30/17 19:00 08/30/17 14:00 D5-Ns - IV 100 mls/hr ASDIR KLAUS Administration Mupirocin 1 applic 08/29/17 22:00 08/30/17 21:35 Bactroban Ointment (For Decolonization) - NS 09/03/17 21:59 1 applic BID KLAUS Administration Oxycodone HCl 10 mg 08/30/17 00:33 Roxicodone - PO Q4H PRN PAIN A/P 72 y/o patient with metastatic breast cancer, on gemzar, comes in with septic shoock, G- bacteremia cholestasis liver mets Sepsis poor prognosis will discuss with family
--- NOTE | 2017-08-30 20:56 | PN ---
Teaching Attending Note Name of Resident: Junior Arias ATTENDING PHYSICIAN STATEMENT I saw and evaluated the patient. I reviewed the resident's note and discussed the case with the resident. I agree with the resident's findings and plan as documented. SUBJECTIVE: Patient is doing better, less tachycardic. Denies any fever or chills, feels very weak. OBJECTIVE: Vital Signs Temperature 98 F 08/30/17 14:00 Pulse Rate 117 H 08/30/17 19:00 Respiratory Rate 18 08/30/17 19:00 Blood Pressure 118/54 08/30/17 19:30 O2 Sat by Pulse Oximetry (%) 98 08/30/17 10:23 CBCD WBC 16.1 K/mm3 (4.0-10.0) H D 08/30/17 05:00 RBC 3.03 M/mm3 (3.60-5.2) L 08/30/17 05:00 Hgb 9.7 GM/dL (10.7-15.3) L D 08/30/17 05:00 Hct 31.0 % (32.4-45.2) L 08/30/17 05:00 MCV 102.5 fl (80-96) H 08/30/17 05:00 MCHC 31.4 g/dl (32.0-36.0) L 08/30/17 05:00 RDW 26.3 % (11.6-15.6) H 08/30/17 05:00 Plt Count 170 K/MM3 (134-434) D 08/30/17 05:00 MPV 9.4 fl (7.5-11.1) 08/30/17 05:00 CMP Sodium 134 mmol/L (136-145) L 08/30/17 05:00 Potassium 4.6 mmol/L (3.5-5.1) 08/30/17 05:00 Chloride 101 mmol/L (98-107) 08/30/17 05:00 Carbon Dioxide 16 mmol/L (21-32) L 08/30/17 05:00 Anion Gap 17 (8-16) H 08/30/17 05:00 BUN 27 mg/dL (7-18) H D 08/30/17 05:00 Creatinine 1.9 mg/dL (0.55-1.02) H D 08/30/17 05:00 Creat Clearance w eGFR 26.13 (>60) 08/30/17 05:00 Random Glucose 81 mg/dL (74-106) D 08/30/17 05:00 Calcium 7.2 mg/dL (8.5-10.1) L 08/30/17 05:00 Total Bilirubin 14.3 mg/dL (0.2-1.0) H 08/30/17 05:00 AST 192 U/L (15-37) H 08/30/17 05:00 ALT 77 U/L (12-78) 08/30/17 05:00 Alkaline Phosphatase 220 U/L (45-117) H D 08/30/17 05:00 Total Protein 4.9 g/dl (6.4-8.2) L 08/30/17 05:00 Albumin 2.0 g/dl (3.4-5.0) L 08/30/17 05:00 CARDIAC ENZYMES Creatine Kinase 55 IU/L (26-192) 08/30/17 00:12 Troponin I < 0.02 ng/ml (0.00-0.05) 08/30/17 00:12 Current Medications Generic Name Dose Route Start Last Admin Trade Name Freq PRN Reason Stop Dose Admin Chlorhexidine Gluconate 1 applic 08/29/17 22:00 08/30/17 01:32 Hibiclens For Decolonization - TP Not Given HS KLAUS Piperacillin Sod/Tazobactam 50 mls @ 100 mls/hr 08/30/17 09:30 08/30/17 15:20 Sod 2.25 gm/ Dextrose IVPB 100 mls/hr Q6H-IV KLAUS Administration Protocol Dextrose/Sodium Chloride 1,000 mls @ 100 mls/hr 08/30/17 19:00 08/30/17 14:00 D5-Ns - IV 100 mls/hr ASDIR KLAUS Administration Mupirocin 1 applic 08/29/17 22:00 08/30/17 12:25 Bactroban Ointment (For Decolonization) - NS 09/03/17 21:59 1 applic BID KLAUS Administration Oxycodone HCl 10 mg 08/30/17 00:33 Roxicodone - PO Q4H PRN PAIN Home Medications Medication Instructions Recorded Xalatan 0.005% Eye Drops - 1 drop OU HS 09/01/16 Sitagliptin Phos/Metformin HCl 1 each PO DAILY 11/08/16 [Janumet Xr 50-500 mg Tablet] Furosemide 20 mg PO DAILY 02/28/17 Potassium 1 tab PO DAILY 08/06/17 PE: per resident's note still looks lethargic and ill looking but better than yesterday CXR 08/29 - Since 08/08/2017, the bilateral pulmonary and pleural changes with right port persist. LE Duplex 08/29: Negative for DVTs CT scan of chest/abdomen 08/29 - 1. Moderate bilateral pleural effusions with loculations as described above. 2. Atelectatic changes of both lower lobes. 3. Ascites. 4. Heterogeneous liver consistent with diffuse metastases, although discrete lesions cannot be delineated without intravenous contrast. 5. Anasarca. 6. Extensive sclerotic bony metastases. Please see above discussion. ASSESSMENT AND PLAN: 72 yo woman with pmhx of HTN, fibromyalgia, and metastatic breast cancer (bone mets; liver), with chronic pleural effusions who presents with one week of worsening fatigue s/p chemo tx, was found to be hypotensive today while visiting her oncologist Dr. Smith and was sent in for further care. Patient is admitted for sepsis secondary to possible empyema from chronic pleural effusions. # Acute sepsis due to empyema with chronic pleural effusions with loculations on CT scan. Chemotx one week ago. ID on the case, on IV antibiotic as per ID; continue with IV Zosyn renally dosed . further care per ICU team. #Metastatic Breast Ca with bone mets/Liver- Received chemotx one week ago. Dr. Smith on consult to see the patient #Elevated T Bili/LFTs - T bili 15--14 trending down due to most likely mets. will continue to hold Januvia , GI consult appreciated # ARF likely from sepsis and hypotension ; trending up the cr 1.4-->1.9 today as per nephro to hold IVF and start the patient on Lasix due to fluid overload, metformin is on hold . Zosyn is adjusted according to renal function. #Hx of HTN , Hypotensive now due to sepsis. Hold BP meds for now. #T2DM Hold home janumet given renal/hepatic toxicity, SS with coverage ,check hemoglobin A1C PPX: SCDs, Heparin sq
[2017-08-30] MEDS ORDERED: KCL 10 MEQ IVPB 10 MEQ/100 ML INFUS.BAG IVPB SCH (23:45)
[2017-08-31] MEDS ORDERED: dilTIAZem HCL 50 MG/10 ML - 10 ML VIAL IVPUSH ONE ×2 (00:20→01:35)
[2017-08-31] MEDS ORDERED: DIGOXIN 0.5 MG/2 ML AMPUL IVPUSH ONE (00:32)
--- NOTE | 2017-08-31 01:12 | PN ---
Progress Note (short form) - Note Progress Note: Paged by nursing staff due to tachycardia up to 160-170bpm with irregular rhythm on monitor. BP was 103/60 on monitor with rpt cycle confirming while pt is on Levophed gtt at 25mcg. Pt denies any symptoms. Pulse irregularly irregular. A/P Suspected A fib --EKG stat --Revealed Atrial fibrillation with some q-waves noted in lateral leads --Previous EKG shows NSR and medical chart reflects not episodes of Afib noted --Digoxin .25mg IVP once given --Discussed with Dr. Polo
[2017-08-31] MEDS ORDERED: dilTIAZem HCL 125 MG/25 ML - 25 ML VIAL ONE (01:41)
--- NOTE | 2017-08-31 02:10 | PN ---
Physical Exam: SUBJECTIVE: The patient is a 72F with a PMH of HTN, fibromyalgia, stage 4 breast ca w/ mets, chronic malignant pleural effusions who was found to be hypotensive by her PMD. The patient has no acute complaints and no overnight events. She remains to be hypotensive OBJECTIVE: Vital Signs Period Temp Pulse Resp BP Sys/Giron Pulse Ox Last 24 Hr 98 F-98.6 F 110-155 16-25 73-118/44-71 95-98 GENERAL: The patient is awake, alert, and fully oriented, in no acute distress. HEAD: Normal with no signs of trauma. EYES: PERRL, extraocular movements intact, sclera anicteric, conjunctiva clear. No ptosis. NECK: Trachea midline, full range of motion, supple. LUNGS: Breath sounds reveal coarse lung sounds in b/l lung dorsey, no accessory muscle use. HEART: Regular rate and rhythm, S1, S2 without murmur, rub or gallop. ABDOMEN: Soft, nontender, nondistended, normoactive bowel sounds, no guarding, no rebound, no hepatosplenomegaly, no masses. EXTREMITIES: 2+ pulses, warm, well-perfused, 3+ edema in all extremities. NEUROLOGICAL: Cranial nerves II through XII grossly intact. Normal speech, gait not observed. PSYCH: Normal mood, normal affect. SKIN: Warm, dry, normal turgor, no rashes or lesions noted Laboratory Results - last 24 hr 08/30/17 08/30/17 08/30/17 00:12 01:00 01:00 WBC RBC Hgb Hct MCV MCH MCHC RDW Plt Count MPV Total Counted Neutrophils % Neutrophils % (Manual) Band Neutrophils % Lymphocytes % Lymphocytes % (Manual) Monocytes % (Manual) Myelocytes % (Man) Nucleated RBC % Metamyelocytes Platelet Estimate Platelet Comment PT with INR INR PTT (Actin FS) Fibrinogen Sodium Potassium Chloride Carbon Dioxide Anion Gap BUN Creatinine Creat Clearance w eGFR POC Glucometer Random Glucose 36 L* D Hemoglobin A1c % Lactic Acid 7.6 H* Calcium Phosphorus Magnesium Total Bilirubin AST ALT Alkaline Phosphatase Creatine Kinase 55 Troponin I < 0.02 Total Protein Albumin 08/30/17 08/30/17 08/30/17 01:11 05:00 05:00 WBC 16.1 H D RBC 3.03 L Hgb 9.7 L D Hct 31.0 L MCV 102.5 H MCH 32.2 MCHC 31.4 L RDW 26.3 H Plt Count 170 D MPV 9.4 Total Counted 100 Neutrophils % No Result Required. Neutrophils % (Manual) 66.0 D Band Neutrophils % 9.0 Lymphocytes % No Result Required. Lymphocytes % (Manual) 7.0 L D Monocytes % (Manual) 8 Myelocytes % (Man) 1 Nucleated RBC % 9 H Metamyelocytes 9 H D Platelet Estimate Adequate Platelet Comment Moderate large plts PT with INR INR PTT (Actin FS) Fibrinogen Sodium 134 L Potassium 4.6 Chloride 101 Carbon Dioxide 16 L Anion Gap 17 H BUN 27 H D Creatinine 1.9 H D Creat Clearance w eGFR 26.13 POC Glucometer 53.68689 Random Glucose 81 D Hemoglobin A1c % Lactic Acid Calcium 7.2 L Phosphorus 2.8 D Magnesium 1.8 Total Bilirubin 14.3 H AST 192 H ALT 77 Alkaline Phosphatase 220 H D Creatine Kinase Troponin I Total Protein 4.9 L Albumin 2.0 L 08/30/17 08/30/17 08/30/17 05:00 05:00 05:44 WBC RBC Hgb Hct MCV MCH MCHC RDW Plt Count MPV Total Counted Neutrophils % Neutrophils % (Manual) Band Neutrophils % Lymphocytes % Lymphocytes % (Manual) Monocytes % (Manual) Myelocytes % (Man) Nucleated RBC % Metamyelocytes Platelet Estimate Platelet Comment PT with INR 34.10 H INR 3.02 H PTT (Actin FS) 40.0 H D Fibrinogen 359.0 Sodium Potassium Chloride Carbon Dioxide Anion Gap BUN Creatinine Creat Clearance w eGFR POC Glucometer 102.48238 Random Glucose Hemoglobin A1c % 4.9 D Lactic Acid Calcium Phosphorus Magnesium Total Bilirubin AST ALT Alkaline Phosphatase Creatine Kinase Troponin I Total Protein Albumin 08/30/17 08/30/17 08/30/17 08:40 12:02 15:36 WBC RBC Hgb Hct MCV MCH MCHC RDW Plt Count MPV Total Counted Neutrophils % Neutrophils % (Manual) Band Neutrophils % Lymphocytes % Lymphocytes % (Manual) Monocytes % (Manual) Myelocytes % (Man) Nucleated RBC % Metamyelocytes Platelet Estimate Platelet Comment PT with INR INR PTT (Actin FS) Fibrinogen Sodium Potassium Chloride Carbon Dioxide Anion Gap BUN Creatinine Creat Clearance w eGFR POC Glucometer 60.25823 153.45748 Random Glucose Hemoglobin A1c % Lactic Acid 8.0 H* Calcium Phosphorus Magnesium Total Bilirubin AST ALT Alkaline Phosphatase Creatine Kinase Troponin I Total Protein Albumin 08/30/17 21:30 WBC RBC Hgb Hct MCV MCH MCHC RDW Plt Count MPV Total Counted Neutrophils % Neutrophils % (Manual) Band Neutrophils % Lymphocytes % Lymphocytes % (Manual) Monocytes % (Manual) Myelocytes % (Man) Nucleated RBC % Metamyelocytes Platelet Estimate Platelet Comment PT with INR INR PTT (Actin FS) Fibrinogen Sodium Potassium Chloride Carbon Dioxide Anion Gap BUN Creatinine Creat Clearance w eGFR POC Glucometer Random Glucose Hemoglobin A1c % Lactic Acid 6.6 H* Calcium Phosphorus Magnesium Total Bilirubin AST ALT Alkaline Phosphatase Creatine Kinase Troponin I Total Protein Albumin Active Medications Generic Name Dose Route Start Last Admin Trade Name Freq PRN Reason Stop Dose Admin Chlorhexidine Gluconate 1 applic 08/29/17 22:00 08/30/17 21:35 Hibiclens For Decolonization - TP 1 applic HS KLAUS Administration Piperacillin Sod/Tazobactam 50 mls @ 100 mls/hr 08/30/17 09:30 08/30/17 21:34 Sod 2.25 gm/ Dextrose IVPB 100 mls/hr Q6H-IV KLAUS Administration Protocol Dextrose/Sodium Chloride 1,000 mls @ 100 mls/hr 08/30/17 19:00 08/30/17 14:00 D5-Ns - IV 100 mls/hr ASDIR KLAUS Administration Mupirocin 1 applic 08/29/17 22:00 08/30/17 21:35 Bactroban Ointment (For Decolonization) - NS 09/03/17 21:59 1 applic BID KLAUS Administration Oxycodone HCl 10 mg 08/30/17 00:33 08/31/17 01:03 Roxicodone - PO 10 mg Q4H PRN Administration PAIN ASSESSMENT/PLAN: Neuro: - The patient is at her baseline CV: - Monitor BP and add pressors as needed Pulm: - Zosyn for possible pna coverage GI: - Increasing alk phos - Will order RUQ U/S ID: - Lactate increasing - Will continue to give fluids and resuscitate patient PPX: - Heparin FEN (Fluids, electrolytes, nutrition): - NS @ 100 Dispo: - Continue to monitor in ICU - Keep close watch for hypotensive BP Visit type - Emergency Visit Emergency Visit: Yes ED Registration Date: 08/29/17 Care time: The patient presented to the Emergency Department on the above date and was hospitalized for further evaluation of their emergent condition. - New Patient This patient is new to me today: Yes Date on this admission: 09/02/17 - Critical Care Critical Care patient: Yes Total Critical Care Time (in minutes): 48 Critical Care Statement: The care of this patient involved high complexity decision making to prevent further life threatening deterioration of the patient 's condition and/or to evaluate & treat vital organ system(s) failure or risk of failure.
[2017-08-31] MEDS ORDERED: DEXTROSE 5%-NORMAL SALINE 500 ML IV ONE (02:31)
[2017-08-31] MEDS ORDERED: SODIUM CHLORIDE 500 ML IV STA (02:36)
[2017-08-31] MEDS ORDERED: PT OWN MED DRAWER 7, Y5N ONE ×5 (02:41→21:46)
[2017-08-31] MEDS ORDERED: NOREPINEPHRINE BITARTRATE 4 MG/4 ML ML IV ONE ×4 (03:13→20:05)
[2017-08-31] MEDS: PIPERACILLIN/TAZOB 2.25 GM 2.25 GM in DEXTROSE 5%-WATER - 50 ML IVPB SCH ×4 (03:28→21:51)
[2017-08-31] MEDS: NOREPINEPHRINE BITARTRATE 8,000 MCG in DEXTROSE 5%-WATER - 492 ML IV SCH (03:56)
[2017-08-31 06:17] LABS: MEAN CELL VOLUME 99.9 fl (80-96); PLATELET COUNT 138 K/MM3 (134-434); RDW 26.3 % (11.6-15.6)
[2017-08-31 06:38] LABS: INR 2.65 (0.82-1.09); PROTHROMBIN TIME (PATIENT) 29.9 SEC (9.98-11.88)
[2017-08-31 06:41] LABS: ACTIVATED PTT 40.2 SECONDS (26.9-34.4)
[2017-08-31 06:42] LABS: ALBUMIN 1.9 g/dl (3.4-5.0); CO2 17 mmol/L (21-32); GLUCOSE,RANDOM 233 mg/dL (74-106); MAGNESIUM 1.8 mg/dL (1.8-2.4)
[2017-08-31 06:55] LABS: ANION GAP 12 (8-16)
[2017-08-31 07:16] LABS: CALCIUM 6.4 mg/dL (8.5-10.1)
[2017-08-31 08:33] LABS: ALK PHOS 178 U/L (45-117); CREATININE 2.1 mg/dL (0.55-1.02); SGOT/AST 261 U/L (15-37); SGPT/ALT 82 U/L (12-78); TOT PROT 4.7 g/dl (6.4-8.2)
[2017-08-31 08:36] LABS: BILIRUBIN,TOTAL 15.8 mg/dL (0.2-1.0)
--- NOTE | 2017-08-31 08:49 | PN ---
Progress Note, Physician Chief Complaint: ID Remains stable Offers no complaints Zosyn and dose of Gent given day 2 therapy GNR sepsis - Current Medication List Current Medications: Active Medications Chlorhexidine Gluconate (Hibiclens For Decolonization -) 1 applic TP HS KLAUS Last Admin: 08/30/17 21:35 Dose: 1 applic Piperacillin Sod/Tazobactam (Sod 2.25 gm/ Dextrose) 50 mls @ 100 mls/hr IVPB Q6H-IV KLAUS PRN Reason: Protocol Last Admin: 08/31/17 03:28 Dose: 100 mls/hr Dextrose/Sodium Chloride (D5-Ns -) 1,000 mls @ 100 mls/hr IV ASDIR KLAUS Last Admin: 08/30/17 14:00 Dose: 100 mls/hr Norepinephrine Bitartrate 8, (000 mcg/ Dextrose) 500 mls @ 18.75 mls/hr IV TITR LKAUS; 5 MCG/MIN PRN Reason: Protocol Last Admin: 08/31/17 03:56 Dose: 20 mcg/min, 75 mls/hr Mupirocin (Bactroban Ointment (For Decolonization) -) 1 applic NS BID KLAUS Stop: 09/03/17 21:59 Last Admin: 08/30/17 21:35 Dose: 1 applic Oxycodone HCl (Roxicodone -) 10 mg PO Q4H PRN PRN Reason: PAIN Last Admin: 08/31/17 01:03 Dose: 10 mg - Objective Vital Signs: Vital Signs Temperature 98.9 F 08/31/17 05:00 Pulse Rate 102 H 08/31/17 06:53 Respiratory Rate 26 H 08/31/17 06:53 Blood Pressure 108/57 08/31/17 06:53 O2 Sat by Pulse Oximetry (%) 95 08/31/17 01:13 Constitutional: Yes: Mild Distress Neck: Yes: WNL, Supple Cardiovascular: Yes: Tachycardia, S1, S2, Other (Portacatheter). No: Murmur Respiratory: Yes: WNL, Regular, CTA Bilaterally, Diminished Gastrointestinal: Yes: WNL, Normal Bowel Sounds, Soft, Ascites, Distention. No : Tenderness Edema: Yes Labs: CBC, BMP 08/31/17 05:55 08/31/17 05:55 INR, PTT INR 2.65 (0.82-1.09) H 08/31/17 05:55 Fibrinogen 359.0 mg/dL (238-498) 08/30/17 05:00 Problem List - Problems (1) CHRISSY (acute kidney injury) Code(s): N17.9 - ACUTE KIDNEY FAILURE, UNSPECIFIED (2) Breast CA Code(s): C50.919 - MALIGNANT NEOPLASM OF UNSP SITE OF UNSPECIFIED FEMALE BREAST (3) Sepsis Code(s): A41.9 - SEPSIS, UNSPECIFIED ORGANISM Assessment/Plan Microbiology 08/29/17 12:21 Urine - Urine Clean Catch Urine Culture - Final NO GROWTH OBTAINED 08/29/17 12:21 Blood - Sofia Cath Blood Culture - Preliminary Non Lactose Fermenting Gnb 08/29/17 11:40 Blood - Sofia Cath Blood Culture - Preliminary Non Lactose Fermenting Gnb Laboratory Tests 08/31/17 08/31/17 08/31/17 05:55 05:55 05:55 WBC 21.0 H D Hgb 9.3 L Hct 28.2 L Plt Count 138 INR 2.65 H BUN 36 H D Creatinine 2.1 H Creat Clearance w eGFR 23.28 Lactic Acid Total Bilirubin 15.8 H* Alkaline Phosphatase 178 H 08/31/17 05:55 WBC Hgb Hct Plt Count INR BUN Creatinine Creat Clearance w eGFR Lactic Acid 6.6 H* Total Bilirubin Alkaline Phosphatase Assessment Septic shock with gram negative karyn bacteremia 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 Zosyn and Gent day 2. Metastatic breast cancer wiath mets bone and liver Pleural effusions Plan While I do not feel repeat blood cultures usually needed for gram negative karyn bactremia will get them through the port to see if port could be a source. Continue Zosyn Hold on further gent for hepato renal concern Does not appear to be Pseudo at this point but latter today we will know. Yasir BHATT Continue Zosyn
[2017-08-31] MEDS: MUPIROCIN 2% TOPICAL OINTMENT FOR DECOLONIZATION NS SCH ×2 (09:00→23:56)
--- NOTE | 2017-08-31 09:08 | PN ---
Physical Exam: SUBJECTIVE: Patient seen and examined by me this AM - Afib w/ RVR to 160-170s overnight. Covering night team responded. Given digoxin 0.25mg with no response. Cardizem 10mg IV push given with subsequent rate control. No further episodes. NSR on tele since event. - BP stable on Levo 20. Remains fatigued, somnolent today. Denies any symptoms other than fatigue. PM: - Pt made DNR/DNI per ICU team. OBJECTIVE: Vital Signs Intake & Output 08/28/17 08/29/17 08/30/17 08/31/17 23:59 23:59 23:59 23:59 Intake Total 200 4225 2700 Output Total 100 100 Balance 200 4125 2600 Weight 64.864 kg 69.8 kg 79.832 kg Period Temp Pulse Resp BP Sys/Giron Pulse Ox Last 24 Hr 97.8 F-98.9 F 100-155 16-31 73-127/44-71 95-98 GENERAL: A&Ox3. Frail, elderly woman lying in bed. HEAD: NCAT. jaundiced EYES: Pupils equal, round and reactive to light, extraocular movements intact, sclera icteric. Mild L eye ptosis. EARS, NOSE, THROAT: Ears normal, nares patent, oropharynx clear without exudates , still w/ sublingual jaundice. Moist mucous membranes. No thrush or oral lesions noted. NECK: JVD noted to angle of mandible. Normal range of motion, supple without lymphadenopathy or masses. LUNGS: Decreased breath sounds at lung bases. No wheezes and no crackles. No accessory muscle use. HEART: Tachycardic, regular rate and rhythm, normal S1 and S2 without murmur, rub or gallop. R port in upper chest w/ no erythema, drainage or purulence. Bilateral mastectomy, with diffuse necrotic petechial scar/chronic skin changes. ABDOMEN: Full abdomen. Nontender to superficial or deep palpation. Hypoactive bowel bowel sounds, no guarding, no rebound. Significant hepatomegaly with easily palpable liver edge. Negative murphys. MUSCULOSKELETAL: Normal range of motion at all joints. No bony deformities or tenderness. No CVA tenderness. UPPER EXTREMITIES: 2+ pulses, warm, well-perfused. No cyanosis. No clubbing. +2 peripheral edema, worse on R side. LOWER EXTREMITIES: 2+ PT, 1+ DP pulse BL. 2+ pitting edema bilaterally. Cool to touch. No calf tenderness. 5/5 dorsi/plantarflexion BL. 2+ patellar reflexes. Preserved sensation to touch BL NEUROLOGICAL: Cranial nerves II-XII intact. Normal speech. Gait not evaluated. SKIN: Still with diffuse, pronounced jaundice. BL anterior chest punctate necrotic rash. Laboratory Results - last 24 hr CBC, BMP 08/31/17 05:55 08/31/17 05:55 08/30/17 08/30/17 08/30/17 01:11 05:00 05:00 WBC 16.1 H D RBC 3.03 L Hgb 9.7 L D Hct 31.0 L MCV 102.5 H MCH 32.2 MCHC 31.4 L RDW 26.3 H Plt Count 170 D MPV 9.4 Total Counted 100 Neutrophils % No Result Required. Neutrophils % (Manual) 66.0 D Band Neutrophils % 9.0 Lymphocytes % No Result Required. Lymphocytes % (Manual) 7.0 L D Monocytes % (Manual) 8 Myelocytes % (Man) 1 Nucleated RBC % 9 H Metamyelocytes 9 H D Platelet Estimate Adequate Platelet Comment Moderate large plts PT with INR INR PTT (Actin FS) Sodium Potassium Chloride Carbon Dioxide Anion Gap BUN Creatinine Creat Clearance w eGFR POC Glucometer 53.51097 Random Glucose Hemoglobin A1c % 4.9 D Lactic Acid Calcium Phosphorus Magnesium Total Bilirubin AST ALT Alkaline Phosphatase Total Protein Albumin 08/30/17 08/30/17 08/30/17 05:44 08:40 12:02 WBC RBC Hgb Hct MCV MCH MCHC RDW Plt Count MPV Total Counted Neutrophils % Neutrophils % (Manual) Band Neutrophils % Lymphocytes % Lymphocytes % (Manual) Monocytes % (Manual) Myelocytes % (Man) Nucleated RBC % Metamyelocytes Platelet Estimate Platelet Comment PT with INR INR PTT (Actin FS) Sodium Potassium Chloride Carbon Dioxide Anion Gap BUN Creatinine Creat Clearance w eGFR POC Glucometer 102.22485 60.45607 Random Glucose Hemoglobin A1c % Lactic Acid 8.0 H* Calcium Phosphorus Magnesium Total Bilirubin AST ALT Alkaline Phosphatase Total Protein Albumin 08/30/17 08/30/17 08/31/17 15:36 21:30 05:55 WBC 21.0 H D RBC 2.82 L Hgb 9.3 L Hct 28.2 L MCV 99.9 H MCH 33.0 MCHC 33.0 RDW 26.3 H Plt Count 138 MPV 9.0 Total Counted Neutrophils % No Result Required. Neutrophils % (Manual) Band Neutrophils % Lymphocytes % No Result Required. Lymphocytes % (Manual) Monocytes % (Manual) Myelocytes % (Man) Nucleated RBC % Metamyelocytes Platelet Estimate Platelet Comment PT with INR INR PTT (Actin FS) Sodium Potassium Chloride Carbon Dioxide Anion Gap BUN Creatinine Creat Clearance w eGFR POC Glucometer 153.84587 Random Glucose Hemoglobin A1c % Lactic Acid 6.6 H* Calcium Phosphorus Magnesium Total Bilirubin AST ALT Alkaline Phosphatase Total Protein Albumin 08/31/17 08/31/17 08/31/17 05:55 05:55 05:55 WBC RBC Hgb Hct MCV MCH MCHC RDW Plt Count MPV Total Counted Neutrophils % Neutrophils % (Manual) Band Neutrophils % Lymphocytes % Lymphocytes % (Manual) Monocytes % (Manual) Myelocytes % (Man) Nucleated RBC % Metamyelocytes Platelet Estimate Platelet Comment PT with INR 29.90 H INR 2.65 H PTT (Actin FS) 40.2 H Sodium 130 L Potassium 4.3 Chloride 101 Carbon Dioxide 17 L Anion Gap 12 BUN 36 H D Creatinine 2.1 H Creat Clearance w eGFR 23.28 POC Glucometer Random Glucose 233 H D Hemoglobin A1c % Lactic Acid 6.6 H* Calcium 6.4 L* Phosphorus 3.0 Magnesium 1.8 Total Bilirubin 15.8 H* AST 261 H D ALT 82 H Alkaline Phosphatase 178 H Total Protein 4.7 L Albumin 1.9 L Active Medications Generic Name Dose Route Start Last Admin Trade Name Freq PRN Reason Stop Dose Admin Chlorhexidine Gluconate 1 applic 08/29/17 22:00 08/30/17 21:35 Hibiclens For Decolonization - TP 1 applic HS KLAUS Administration Piperacillin Sod/Tazobactam 50 mls @ 100 mls/hr 08/30/17 09:30 08/31/17 09:00 Sod 2.25 gm/ Dextrose IVPB 100 mls/hr Q6H-IV KLAUS Administration Protocol Dextrose/Sodium Chloride 1,000 mls @ 100 mls/hr 08/30/17 19:00 08/30/17 14:00 D5-Ns - IV 100 mls/hr ASDIR KLAUS Administration Norepinephrine Bitartrate 8, 500 mls @ 18.75 mls/hr 08/31/17 04:00 08/31/17 03:56 000 mcg/ Dextrose IV 20 mcg/min TITR KLAUS 75 mls/hr Protocol Administration 5 MCG/MIN Mupirocin 1 applic 08/29/17 22:00 08/31/17 09:00 Bactroban Ointment (For Decolonization) - NS 09/03/17 21:59 1 applic BID KLAUS Administration Oxycodone HCl 10 mg 08/30/17 00:33 08/31/17 01:03 Roxicodone - PO 10 mg Q4H PRN Administration PAIN Microbiology 08/29/17 12:21 Blood - Sofia Cath Blood Culture - Final Escherichia Coli 08/29/17 11:40 Blood - Sofia Cath Blood Culture - Final Escherichia Coli 08/29/17 12:21 Urine - Urine Clean Catch Urine Culture - Final NO GROWTH OBTAINED CXR 08/29 - Since 08/08/2017, the bilateral pulmonary and pleural changes with right port persist. CXR 08/30 - Worsening of BL pleural effusions/congestion. LE Duplex 08/29: Negative for DVTs CT scan of chest/abdomen 08/29 - 1. Moderate bilateral pleural effusions with loculations as described above. 2. Atelectatic changes of both lower lobes. 3. Ascites. 4. Heterogeneous liver consistent with diffuse metastases, although discrete lesions cannot be delineated without intravenous contrast. 5. Anasarca. 6. Extensive sclerotic bony metastases. Please see above discussion. RUQ/Renal/Pelvic U/S 08/30 - IMPRESSION: 1. Enlarged and heterogeneous liver. 2. No evidence of hydronephrosis or acute renal pathology. 3. Small amount of ascites. Markedly limited study as described above. CXR 08/31: BL pleural effusions. No pneumo. ECHO 08/31 - Large BL pleural effusions. Moderate pericardial effusion. Normal LV , RV function. Mild TR, trace MR. No vegetations noted. ASSESSMENT/PLAN: 72 yo woman with pmh of HTN, fibromyalgia, and metastatic breast cancer (bone mets; liver?), with chronic pleural effusions who presents with one week of worsening fatigue s/p chemo tx, found to by hypotensive today during outpt visit to Dr. Smith's office, now admitted for sepsis secondary to SBP vs. Empyema vs. UTI. Pt on day 3 of zosyn/gentamycin for GNR severe sepsis, still w / low MAPs requiring pressor support. WBC uptrending 16 -> 21, afebrile overnight. Blood cultures speciated to E. Coli. Pt w/ rapid afib w/ RVR overnight, now in NSR after receiving 10mg cardizem IV. Pt w/ extensive metastatic liver dz w/ intrahepatic cholestasis secondary to tumor burden. Prognosis remains grim. Family agreed upon DNR/DNI status. #Sepsis 2/2 likely secondary to SBP vs. empyema vs. UTI - Uptrending WBC 16 -> 21. Chemotx one week ago. Chronic pleural effusions w/ loculations on CT scan. - ID consulted. Recommend continuing zosyn, addition of gentamycin. Day 3 of zosyn, day 2 of gentamycin - Trend lactate q4h. 6.6 this PM. Likely mixed type A and B - IVFs - Monitor for hypotension. If MAP<65, bolus 500ml LR - BCx + E. Coli. f/u sensitivities and ID recs - Consider diagnostic thoracentesis/paracentesis to r/o empyema/SBP - Pressors to maintain MAP >60 - May require port removal, however no erythema, puss or drainage noted at site - Strict Is and Os #End-stage liver disease - T bili 15 on admission. Pt severely jaundiced. D Bili 10.5 08/30 - GI consulted. Pt w/ intrahepatic cholestasis secondary to numerous metastatic tumors in liver. Recommend MRI of abdomen if needed for further characterization or palliative possible stenting. - Hepatomegaly on abdominal CT w/ diffuse heterogenous liver dz, likely mets - MELD score of 35 - Pt unable to maintain intravascular volume secondary to hypoalbuminemia/ portal hypertension #Afib w/ RVR - rates of 160-170s overnight. NSR now. Unable to give BB due to hypotension, amiodarone due to vitamin K. No prior hx of afib - If tachy again, push Cardizem 10mg IV - Monitor on tele - Cardiology consulted. Recs appreciated. #Metastatic Breast Ca - Received chemotx one week ago. Hematopoetic disorder secondary to bone mets -Heme/onc consulted. Rec appreciated. -Diffuse metastatic dz -RBC abnormalities likely secondary to bone mets. RDW, nucleated RBCs increased. F/u retic count #CHRISSY likely pre-renal 2/2 sepsis - - Cr 1.9 -> 2.1. Uptrending. - No renal pathology on renal U/S - Limit IVFs as third-spacing per renal recs - Daily BMPs, trend Cr. - Renal consulted. Recommend diuresis and stopping fluids. CHRISSY likely due to hypotension secondary to sepsis. f/u echo, renal U/S - f/u urine lytes #?Hx of HTN - Hypotensive on admission - Monitor BP - No home HTN meds #?DM2 - - Hold home janumet given renal/hepatic toxicity - ISS once BGMs stable - BGM q4h - A1C 4.9 FEN: Fluids: D5NS 100cc/hr Electrolytes: Daily BMPs, monitor Cr Nutrition: Diabetic diet. Nutrition consulted PPX: SCDs Dispo: Pt prognosis continues to be very poor given severe metastatic dz and end -stage liver failure DNR/DNI Plan discussed with attending, Dr. Darin Arias, PGY1 Visit type - Emergency Visit Emergency Visit: Yes ED Registration Date: 08/29/17 Care time: The patient presented to the Emergency Department on the above date and was hospitalized for further evaluation of their emergent condition. - New Patient This patient is new to me today: No - Critical Care Critical Care patient: Yes Total Critical Care Time (in minutes): 45 Critical Care Statement: The care of this patient involved high complexity decision making to prevent further life threatening deterioration of the patient 's condition and/or to evaluate & treat vital organ system(s) failure or risk of failure.
--- NOTE | 2017-08-31 10:21 | EKG ---
Test Reason : Blood Pressure : / mmHG Vent. Rate : 167 BPM Atrial Rate : 187 BPM P-R Int : 000 ms QRS Dur : 082 ms QT Int : 238 ms P-R-T Axes : 000 -07 185 degrees QTc Int : 397 ms ATRIAL FIBRILLATION WITH RAPID VENTRICULAR RESPONSE LOW VOLTAGE QRS SEPTAL INFARCT (CITED ON OR BEFORE 25-DEC-2013) ABNORMAL ECG WHEN COMPARED WITH ECG OF 29-AUG-2017 11:38, ATRIAL FIBRILLATION HAS REPLACED SINUS RHYTHM T WAVE INVERSION NOW EVIDENT IN LATERAL LEADS Confirmed by MD JOSEPH, PAOLA ([id number]) on 08/31/2017 10:21:30 AM Referred By: SKYLAR Confirmed By:PAOLA RUIZ MD
[2017-08-31 10:41] LABS: ANISOCYTOSIS 3+; HYPOCHROMIA 0; MACROCYTOSIS 2+; METAMYELOCYTE 2 % (0-2); MICROCYTOSIS 1+; MYELOCYTE 1 % (0-2); PLATELET ESTIMATE NORMAL; POIKILOCYTOSIS 0; POLYCHROMASIA 2+; REACTIVE LYMPHOCYTES 0 % (0-80); TARGET CELLS 3+
[2017-08-31 12:42] LABS: NUCLEATED RED BLOOD CELL 5 % (0-0)
--- NOTE | 2017-08-31 12:54 | PN ---
Teaching Attending Note Name of Resident: Brandyn Elliott ATTENDING PHYSICIAN STATEMENT I saw and evaluated the patient. I reviewed the resident's note and discussed the case with the resident. I agree with the resident's findings and plan as documented. SUBJECTIVE: Patient seen and examined in the ICU. Lethargic and poorly arousable. Tachypneic at rest. Remains on 25 mcq NE for hemodynamic support. Intake & Output 08/28/17 08/29/17 08/30/17 08/31/17 23:59 23:59 23:59 23:59 Intake Total 200 4225 2700 Output Total 100 100 Balance 200 4125 2600 Weight 143 lb 153 lb 14.122 oz 176 lb Last Vital Signs Temp Pulse Resp BP Pulse Ox 98.8 F 99 H 25 H 101/65 95 08/31/17 10:00 08/31/17 12:00 08/31/17 12:00 08/31/17 12:00 08/31/17 01:13 Active Medications Chlorhexidine Gluconate (Hibiclens For Decolonization -) 1 applic TP HS KLAUS Last Admin: 08/30/17 21:35 Dose: 1 applic Piperacillin Sod/Tazobactam (Sod 2.25 gm/ Dextrose) 50 mls @ 100 mls/hr IVPB Q6H-IV KLAUS PRN Reason: Protocol Last Admin: 08/31/17 09:00 Dose: 100 mls/hr Dextrose/Sodium Chloride (D5-Ns -) 1,000 mls @ 100 mls/hr IV ASDIR KLAUS Last Admin: 08/30/17 14:00 Dose: 100 mls/hr Norepinephrine Bitartrate 8, (000 mcg/ Dextrose) 500 mls @ 18.75 mls/hr IV TITR KLAUS; 5 MCG/MIN PRN Reason: Protocol Last Admin: 08/31/17 03:56 Dose: 20 mcg/min, 75 mls/hr Mupirocin (Bactroban Ointment (For Decolonization) -) 1 applic NS BID KLAUS Stop: 09/03/17 21:59 Last Admin: 08/31/17 09:00 Dose: 1 applic Oxycodone HCl (Roxicodone -) 10 mg PO Q4H PRN PRN Reason: PAIN Last Admin: 08/31/17 01:03 Dose: 10 mg GENERAL: Lethargic, anasarca, tachypneic. HEAD: Normal with no signs of trauma. EYES: (+) jaundice/scleral icterus EARS, NOSE, THROAT: Moist mucous membranes. NECK: supple without JVD LUNGS:bibasilar crackles HEART: tachycardia, S1 and S2 ABDOMEN: Soft, nontender, mildly distended, reduced bowel sounds, (+) fluid wave. MUSCULOSKELETAL: No CVA tenderness. UPPER EXTREMITIES: (+) edema. LOWER EXTREMITIES: (+) edema NEUROLOGICAL: Lethargic PSYCHIATRIC: Lethargic. SKIN: Warm, dry Laboratory Results - last 24 hr 08/30/17 08/30/17 08/30/17 01:11 05:00 05:44 WBC RBC Hgb Hct MCV MCH MCHC RDW Plt Count MPV Total Counted 100 Neutrophils % Neutrophils % (Manual) 66.0 D Band Neutrophils % 9.0 Lymphocytes % Lymphocytes % (Manual) 7.0 L D Monocytes % (Manual) 8 Basophils % (Manual) Myelocytes % (Man) 1 Nucleated RBC % 9 H Metamyelocytes 9 H D Hypochromia Platelet Estimate Adequate Platelet Comment Moderate large plts Polychromasia Poikilocytosis Anisocytosis Microcytosis Macrocytosis Target Cells PT with INR INR PTT (Actin FS) Sodium Potassium Chloride Carbon Dioxide Anion Gap BUN Creatinine Creat Clearance w eGFR POC Glucometer 53.77267 102.89270 Random Glucose Lactic Acid Calcium Phosphorus Magnesium Total Bilirubin AST ALT Alkaline Phosphatase Total Protein Albumin 08/30/17 08/30/17 08/30/17 12:02 15:36 21:30 WBC RBC Hgb Hct MCV MCH MCHC RDW Plt Count MPV Total Counted Neutrophils % Neutrophils % (Manual) Band Neutrophils % Lymphocytes % Lymphocytes % (Manual) Monocytes % (Manual) Basophils % (Manual) Myelocytes % (Man) Nucleated RBC % Metamyelocytes Hypochromia Platelet Estimate Platelet Comment Polychromasia Poikilocytosis Anisocytosis Microcytosis Macrocytosis Target Cells PT with INR INR PTT (Actin FS) Sodium Potassium Chloride Carbon Dioxide Anion Gap BUN Creatinine Creat Clearance w eGFR POC Glucometer 60.12155 153.27429 Random Glucose Lactic Acid 6.6 H* Calcium Phosphorus Magnesium Total Bilirubin AST ALT Alkaline Phosphatase Total Protein Albumin 08/31/17 08/31/17 08/31/17 05:55 05:55 05:55 WBC 21.0 H D RBC 2.82 L Hgb 9.3 L Hct 28.2 L MCV 99.9 H MCH 33.0 MCHC 33.0 RDW 26.3 H Plt Count 138 MPV 9.0 Total Counted Neutrophils % No Result Required. Neutrophils % (Manual) 84.4 H D Band Neutrophils % 1.0 Lymphocytes % No Result Required. Lymphocytes % (Manual) 7.3 L Monocytes % (Manual) 4 Basophils % (Manual) 0.0 Myelocytes % (Man) 1 Nucleated RBC % 5 H Metamyelocytes 2 D Hypochromia 0 Platelet Estimate Normal Platelet Comment Polychromasia 2+ Poikilocytosis 0 Anisocytosis 3+ Microcytosis 1+ Macrocytosis 2+ Target Cells 3+ PT with INR 29.90 H INR 2.65 H PTT (Actin FS) 40.2 H Sodium 130 L Potassium 4.3 Chloride 101 Carbon Dioxide 17 L Anion Gap 12 BUN 36 H D Creatinine 2.1 H Creat Clearance w eGFR 23.28 POC Glucometer Random Glucose 233 H D Lactic Acid Calcium 6.4 L* Phosphorus 3.0 Magnesium 1.8 Total Bilirubin 15.8 H* AST 261 H D ALT 82 H Alkaline Phosphatase 178 H Total Protein 4.7 L Albumin 1.9 L 08/31/17 05:55 WBC RBC Hgb Hct MCV MCH MCHC RDW Plt Count MPV Total Counted Neutrophils % Neutrophils % (Manual) Band Neutrophils % Lymphocytes % Lymphocytes % (Manual) Monocytes % (Manual) Basophils % (Manual) Myelocytes % (Man) Nucleated RBC % Metamyelocytes Hypochromia Platelet Estimate Platelet Comment Polychromasia Poikilocytosis Anisocytosis Microcytosis Macrocytosis Target Cells PT with INR INR PTT (Actin FS) Sodium Potassium Chloride Carbon Dioxide Anion Gap BUN Creatinine Creat Clearance w eGFR POC Glucometer Random Glucose Lactic Acid 6.6 H* Calcium Phosphorus Magnesium Total Bilirubin AST ALT Alkaline Phosphatase Total Protein Albumin Problem List - Problems (1) Liver failure Code(s): K72.90 - HEPATIC FAILURE, UNSPECIFIED WITHOUT COMA (2) CHRISSY (acute kidney injury) Code(s): N17.9 - ACUTE KIDNEY FAILURE, UNSPECIFIED (3) Hypotension Code(s): I95.9 - HYPOTENSION, UNSPECIFIED (4) Coagulopathy Code(s): D68.9 - COAGULATION DEFECT, UNSPECIFIED (5) Transaminitis Code(s): R74.0 - NONSPEC ELEV OF LEVELS OF TRANSAMNS & LACTIC ACID DEHYDRGNSE (6) Breast CA Code(s): C50.919 - MALIGNANT NEOPLASM OF UNSP SITE OF UNSPECIFIED FEMALE BREAST (7) Hyperbilirubinemia Code(s): E80.6 - OTHER DISORDERS OF BILIRUBIN METABOLISM (8) Hypertension Code(s): I10 - ESSENTIAL (PRIMARY) HYPERTENSION Qualifiers: Hypertension type: essential hypertension Qualified Code(s): I10 - Essential (primary) hypertension (9) Malignant pleural effusion Code(s): J91.0 - MALIGNANT PLEURAL EFFUSION ASSESSMENT/PLAN: Septic Shock Metastatic Breast CA (lung and liver) HTN Fibromyalgia Lactic acidosis Malignant pleural effusions Coagulopathy Ascites CHRISSY Pressors to maintain MAP > 65 ABX coverage Pain control IVF Attempt to correct coagulopathy O2 to maintain saturation Strict I&O Patient is DNR/DNI Dr Stinson Critical care time spent in reviewing chart, evaluating patient and formulating plan - 40 minutes.
--- NOTE | 2017-08-31 14:41 | PN ---
Progress Note, Physician History of Present Illness: Clinically the same - Current Medication List Current Medications: Active Medications Chlorhexidine Gluconate (Hibiclens For Decolonization -) 1 applic TP HS KLAUS Last Admin: 08/30/17 21:35 Dose: 1 applic Piperacillin Sod/Tazobactam (Sod 2.25 gm/ Dextrose) 50 mls @ 100 mls/hr IVPB Q6H-IV KLAUS PRN Reason: Protocol Last Admin: 08/31/17 09:00 Dose: 100 mls/hr Dextrose/Sodium Chloride (D5-Ns -) 1,000 mls @ 100 mls/hr IV ASDIR KLAUS Last Admin: 08/30/17 14:00 Dose: 100 mls/hr Norepinephrine Bitartrate 8, (000 mcg/ Dextrose) 500 mls @ 18.75 mls/hr IV TITR KLAUS; 5 MCG/MIN PRN Reason: Protocol Last Admin: 08/31/17 03:56 Dose: 20 mcg/min, 75 mls/hr Mupirocin (Bactroban Ointment (For Decolonization) -) 1 applic NS BID KLAUS Stop: 09/03/17 21:59 Last Admin: 08/31/17 09:00 Dose: 1 applic Oxycodone HCl (Roxicodone -) 10 mg PO Q4H PRN PRN Reason: PAIN Last Admin: 08/31/17 01:03 Dose: 10 mg - Objective Vital Signs: Vital Signs Temperature 98.6 F 08/31/17 13:33 Pulse Rate 96 H 08/31/17 13:33 Respiratory Rate 24 08/31/17 13:33 Blood Pressure 119/61 08/31/17 13:33 O2 Sat by Pulse Oximetry (%) 95 08/31/17 01:13 Constitutional: Yes: Calm Eyes: Yes: Sclera Icterus Respiratory: Yes: Regular Gastrointestinal: Yes: Other (anasarca). No: Tenderness Neurological: Yes: Lethargy Labs: CBC, BMP 08/31/17 05:55 08/31/17 05:55 INR, PTT INR 2.65 (0.82-1.09) H 08/31/17 05:55 Fibrinogen 359.0 mg/dL (238-498) 08/30/17 05:00 Laboratory Results - last 24 hr 08/30/17 08/30/17 08/30/17 01:11 05:44 12:02 WBC RBC Hgb Hct MCV MCH MCHC RDW Plt Count MPV Neutrophils % Neutrophils % (Manual) Band Neutrophils % Lymphocytes % Lymphocytes % (Manual) Monocytes % (Manual) Basophils % (Manual) Myelocytes % (Man) Nucleated RBC % Metamyelocytes Hypochromia Platelet Estimate Polychromasia Poikilocytosis Anisocytosis Microcytosis Macrocytosis Target Cells PT with INR INR PTT (Actin FS) Sodium Potassium Chloride Carbon Dioxide Anion Gap BUN Creatinine Creat Clearance w eGFR POC Glucometer 53.81486 102.99167 60.80880 Random Glucose Lactic Acid Calcium Phosphorus Magnesium Total Bilirubin AST ALT Alkaline Phosphatase Total Protein Albumin 08/30/17 08/30/17 08/31/17 15:36 21:30 05:55 WBC 21.0 H D RBC 2.82 L Hgb 9.3 L Hct 28.2 L MCV 99.9 H MCH 33.0 MCHC 33.0 RDW 26.3 H Plt Count 138 MPV 9.0 Neutrophils % No Result Required. Neutrophils % (Manual) 84.4 H D Band Neutrophils % 1.0 Lymphocytes % No Result Required. Lymphocytes % (Manual) 7.3 L Monocytes % (Manual) 4 Basophils % (Manual) 0.0 Myelocytes % (Man) 1 Nucleated RBC % 5 H Metamyelocytes 2 D Hypochromia 0 Platelet Estimate Normal Polychromasia 2+ Poikilocytosis 0 Anisocytosis 3+ Microcytosis 1+ Macrocytosis 2+ Target Cells 3+ PT with INR INR PTT (Actin FS) Sodium Potassium Chloride Carbon Dioxide Anion Gap BUN Creatinine Creat Clearance w eGFR POC Glucometer 153.78129 Random Glucose Lactic Acid 6.6 H* Calcium Phosphorus Magnesium Total Bilirubin AST ALT Alkaline Phosphatase Total Protein Albumin 08/31/17 08/31/17 08/31/17 05:55 05:55 05:55 WBC RBC Hgb Hct MCV MCH MCHC RDW Plt Count MPV Neutrophils % Neutrophils % (Manual) Band Neutrophils % Lymphocytes % Lymphocytes % (Manual) Monocytes % (Manual) Basophils % (Manual) Myelocytes % (Man) Nucleated RBC % Metamyelocytes Hypochromia Platelet Estimate Polychromasia Poikilocytosis Anisocytosis Microcytosis Macrocytosis Target Cells PT with INR 29.90 H INR 2.65 H PTT (Actin FS) 40.2 H Sodium 130 L Potassium 4.3 Chloride 101 Carbon Dioxide 17 L Anion Gap 12 BUN 36 H D Creatinine 2.1 H Creat Clearance w eGFR 23.28 POC Glucometer Random Glucose 233 H D Lactic Acid 6.6 H* Calcium 6.4 L* Phosphorus 3.0 Magnesium 1.8 Total Bilirubin 15.8 H* AST 261 H D ALT 82 H Alkaline Phosphatase 178 H Total Protein 4.7 L Albumin 1.9 L 08/31/17 12:42 WBC RBC Hgb Hct MCV MCH MCHC RDW Plt Count MPV Neutrophils % Neutrophils % (Manual) Band Neutrophils % Lymphocytes % Lymphocytes % (Manual) Monocytes % (Manual) Basophils % (Manual) Myelocytes % (Man) Nucleated RBC % Metamyelocytes Hypochromia Platelet Estimate Polychromasia Poikilocytosis Anisocytosis Microcytosis Macrocytosis Target Cells PT with INR INR PTT (Actin FS) Sodium Potassium Chloride Carbon Dioxide Anion Gap BUN Creatinine Creat Clearance w eGFR POC Glucometer [phone] Random Glucose Lactic Acid Calcium Phosphorus Magnesium Total Bilirubin AST ALT Alkaline Phosphatase Total Protein Albumin Problem List - Problems (1) Breast cancer metastasized to liver Code(s): C50.919 - MALIGNANT NEOPLASM OF UNSP SITE OF UNSPECIFIED FEMALE BREAST ; C78.7 - SECONDARY MALIG NEOPLASM OF LIVER AND INTRAHEPATIC BILE DUCT Assessment/Plan A 72 yof with metastatic to liver and bone breast cancer. Now with cholestasis. No signs of cholangitis. This is very likely intrahepatic cholestasis due to "innumerable" liver mets. The prognosis is very poor. Supportive care low/free fat diet as tolerated with aspiration precautions
--- NOTE | 2017-08-31 16:39 | PN ---
Progress Note, Physician History of Present Illness: Pt seen and examined at bedside. She appears fatigued. She complains of shortness of breath. - Current Medication List Current Medications: Active Medications Chlorhexidine Gluconate (Hibiclens For Decolonization -) 1 applic TP HS KLAUS Last Admin: 08/30/17 21:35 Dose: 1 applic Hydrocortisone Sodium Succinate (Solu-Cortef -) 100 mg IVPB Q8H KLAUS Piperacillin Sod/Tazobactam (Sod 2.25 gm/ Dextrose) 50 mls @ 100 mls/hr IVPB Q6H-IV KLAUS PRN Reason: Protocol Last Admin: 08/31/17 09:00 Dose: 100 mls/hr Dextrose/Sodium Chloride (D5-Ns -) 1,000 mls @ 100 mls/hr IV ASDIR KLAUS Last Admin: 08/30/17 14:00 Dose: 100 mls/hr Norepinephrine Bitartrate 8, (000 mcg/ Dextrose) 500 mls @ 18.75 mls/hr IV TITR KLAUS; 5 MCG/MIN PRN Reason: Protocol Last Admin: 08/31/17 03:56 Dose: 20 mcg/min, 75 mls/hr Mupirocin (Bactroban Ointment (For Decolonization) -) 1 applic NS BID KLAUS Stop: 09/03/17 21:59 Last Admin: 08/31/17 09:00 Dose: 1 applic Oxycodone HCl (Roxicodone -) 10 mg PO Q4H PRN PRN Reason: PAIN Last Admin: 08/31/17 01:03 Dose: 10 mg - Objective Vital Signs: Vital Signs Temperature 98.6 F 08/31/17 13:33 Pulse Rate 96 H 08/31/17 13:33 Respiratory Rate 24 08/31/17 13:33 Blood Pressure 119/61 08/31/17 13:33 O2 Sat by Pulse Oximetry (%) 96 08/31/17 09:00 Constitutional: Yes: Mild Distress Eyes: Yes: Conjunctiva Clear HENT: Yes: Atraumatic Cardiovascular: Yes: S1, S2 Respiratory: Yes: On Nasal O2 Gastrointestinal: Yes: Soft Genitourinary: Yes: WNL Musculoskeletal: Yes: Muscle Weakness Edema: Yes Edema: LUE: 1+, RUE: 1+, LLE: 2+, RLE: 2+ Neurological: Yes: Other (drowsy) Labs: CBC, BMP 08/31/17 05:55 08/31/17 05:55 INR, PTT INR 2.65 (0.82-1.09) H 08/31/17 05:55 Fibrinogen 359.0 mg/dL (238-498) 08/30/17 05:00 - ....Imaging Chest X-ray: Report Reviewed Problem List - Problems (1) CHRISSY (acute kidney injury) Code(s): N17.9 - ACUTE KIDNEY FAILURE, UNSPECIFIED (2) Breast CA Code(s): C50.919 - MALIGNANT NEOPLASM OF UNSP SITE OF UNSPECIFIED FEMALE BREAST (3) Hyperbilirubinemia Code(s): E80.6 - OTHER DISORDERS OF BILIRUBIN METABOLISM (4) Hypotension Code(s): I95.9 - HYPOTENSION, UNSPECIFIED (5) Sepsis Code(s): A41.9 - SEPSIS, UNSPECIFIED ORGANISM (6) Transaminitis Code(s): R74.0 - NONSPEC ELEV OF LEVELS OF TRANSAMNS & LACTIC ACID DEHYDRGNSE Assessment/Plan Current Medications Generic Name Dose Route Start Last Admin Trade Name Freq PRN Reason Stop Dose Admin Chlorhexidine Gluconate 1 applic 08/29/17 22:00 08/30/17 21:35 Hibiclens For Decolonization - TP 1 applic HS KLAUS Administration Hydrocortisone Sodium Succinate 100 mg 08/31/17 16:30 Solu-Cortef - IVPB Q8H KLAUS Piperacillin Sod/Tazobactam 50 mls @ 100 mls/hr 08/30/17 09:30 08/31/17 09:00 Sod 2.25 gm/ Dextrose IVPB 100 mls/hr Q6H-IV KLAUS Administration Protocol Dextrose/Sodium Chloride 1,000 mls @ 100 mls/hr 08/30/17 19:00 08/30/17 14:00 D5-Ns - IV 100 mls/hr ASDIR KLAUS Administration Norepinephrine Bitartrate 8, 500 mls @ 18.75 mls/hr 08/31/17 04:00 08/31/17 03:56 000 mcg/ Dextrose IV 20 mcg/min TITR KLAUS 75 mls/hr Protocol Administration 5 MCG/MIN Mupirocin 1 applic 08/29/17 22:00 08/31/17 09:00 Bactroban Ointment (For Decolonization) - NS 09/03/17 21:59 1 applic BID KLAUS Administration Oxycodone HCl 10 mg 08/30/17 00:33 08/31/17 01:03 Roxicodone - PO 10 mg Q4H PRN Administration PAIN Impression 1. CHRISSY 2. breast cancer with mets 3. pleural effusions 4. ascites 5. hx HTN 6. gram neg bacteremia 7. sepsis 8. lactic acidosis 9. hyperbili/liver failure 10. hyponatremia Plan - pts renal function is worsening - likely ATN from sepsis and hypotension - pressors to a MAP of 65 - recommend lasix with albumin if BP permits - discussed with ICU team - monitor pulse ox - repeat blood cultures - pt appears volume overloaded - recommend stopping fluids and using diuretics - monitor LFTs and get GI eval - check ultrasound kidneys and bladder - monitor lactic acid levels, may have a mixed type A and B lactic acidosis as she is septic/hypotensive and she has metastatic disease - check urine lytes and terminal supervisor to calc fena - will follow Dr Vital
--- NOTE | 2017-08-31 17:12 | PN ---
Teaching Attending Note Name of Resident: Junior Arias ATTENDING PHYSICIAN STATEMENT I saw and evaluated the patient. I reviewed the resident's note and discussed the case with the resident. I agree with the resident's findings and plan as documented. SUBJECTIVE: Patient continues to be in iCU, on pressors now. tacypneic. poorly arousable. OBJECTIVE: Vital Signs Temperature 98.6 F 08/31/17 13:33 Pulse Rate 96 H 08/31/17 13:33 Respiratory Rate 24 08/31/17 13:33 Blood Pressure 119/61 08/31/17 13:33 O2 Sat by Pulse Oximetry (%) 96 08/31/17 09:00 CBCD WBC 21.0 K/mm3 (4.0-10.0) H D 08/31/17 05:55 RBC 2.82 M/mm3 (3.60-5.2) L 08/31/17 05:55 Hgb 9.3 GM/dL (10.7-15.3) L 08/31/17 05:55 Hct 28.2 % (32.4-45.2) L 08/31/17 05:55 MCV 99.9 fl (80-96) H 08/31/17 05:55 MCHC 33.0 g/dl (32.0-36.0) 08/31/17 05:55 RDW 26.3 % (11.6-15.6) H 08/31/17 05:55 Plt Count 138 K/MM3 (134-434) 08/31/17 05:55 MPV 9.0 fl (7.5-11.1) 08/31/17 05:55 CMP Sodium 130 mmol/L (136-145) L 08/31/17 05:55 Potassium 4.3 mmol/L (3.5-5.1) 08/31/17 05:55 Chloride 101 mmol/L (98-107) 08/31/17 05:55 Carbon Dioxide 17 mmol/L (21-32) L 08/31/17 05:55 Anion Gap 12 (8-16) 08/31/17 05:55 BUN 36 mg/dL (7-18) H D 08/31/17 05:55 Creatinine 2.1 mg/dL (0.55-1.02) H 08/31/17 05:55 Creat Clearance w eGFR 23.28 (>60) 08/31/17 05:55 Random Glucose 233 mg/dL (74-106) H D 08/31/17 05:55 Calcium 6.4 mg/dL (8.5-10.1) L* 08/31/17 05:55 Total Bilirubin 15.8 mg/dL (0.2-1.0) H* 08/31/17 05:55 AST 261 U/L (15-37) H D 08/31/17 05:55 ALT 82 U/L (12-78) H 08/31/17 05:55 Alkaline Phosphatase 178 U/L (45-117) H 08/31/17 05:55 Total Protein 4.7 g/dl (6.4-8.2) L 08/31/17 05:55 Albumin 1.9 g/dl (3.4-5.0) L 08/31/17 05:55 CARDIAC ENZYMES Creatine Kinase 55 IU/L (26-192) 08/30/17 00:12 Troponin I < 0.02 ng/ml (0.00-0.05) 08/30/17 00:12 Current Medications Generic Name Dose Route Start Last Admin Trade Name Freq PRN Reason Stop Dose Admin Chlorhexidine Gluconate 1 applic 08/29/17 22:00 08/30/17 21:35 Hibiclens For Decolonization - TP 1 applic HS KLAUS Administration Hydrocortisone Sodium Succinate 100 mg 08/31/17 16:30 Solu-Cortef - IVPB Q8H-IV KLAUS Piperacillin Sod/Tazobactam 50 mls @ 100 mls/hr 08/30/17 09:30 08/31/17 09:00 Sod 2.25 gm/ Dextrose IVPB 100 mls/hr Q6H-IV KLAUS Administration Protocol Dextrose/Sodium Chloride 1,000 mls @ 100 mls/hr 08/30/17 19:00 08/30/17 14:00 D5-Ns - IV 100 mls/hr ASDIR KLAUS Administration Norepinephrine Bitartrate 8, 500 mls @ 18.75 mls/hr 08/31/17 04:00 08/31/17 03:56 000 mcg/ Dextrose IV 20 mcg/min TITR KLAUS 75 mls/hr Protocol Administration 5 MCG/MIN Mupirocin 1 applic 08/29/17 22:00 08/31/17 09:00 Bactroban Ointment (For Decolonization) - NS 09/03/17 21:59 1 applic BID KLAUS Administration Oxycodone HCl 10 mg 08/30/17 00:33 08/31/17 01:03 Roxicodone - PO 10 mg Q4H PRN Administration PAIN Home Medications Medication Instructions Recorded Xalatan 0.005% Eye Drops - 1 drop OU HS 09/01/16 Sitagliptin Phos/Metformin HCl 1 each PO DAILY 11/08/16 [Janumet Xr 50-500 mg Tablet] Furosemide 20 mg PO DAILY 02/28/17 Potassium 1 tab PO DAILY 08/06/17 PE: per resident's note; tachypneic poorly arousable HEART: Iregularly-irregular rate of 96 CXR 08/29 - Since 08/08/2017, the bilateral pulmonary and pleural changes with right port persist. LE Duplex 08/29: Negative for DVTs CT scan of chest/abdomen 08/29 - 1. Moderate bilateral pleural effusions with loculations as described above. 2. Atelectatic changes of both lower lobes. 3. Ascites. 4. Heterogeneous liver consistent with diffuse metastases, although discrete lesions cannot be delineated without intravenous contrast. 5. Anasarca. 6. Extensive sclerotic bony metastases. Please see above discussion. ASSESSMENT AND PLAN: 72 yo woman with pmhx of HTN, fibromyalgia, and metastatic breast cancer (bone mets; liver), with chronic pleural effusions who presents with one week of worsening fatigue s/p chemo tx, was found to be hypotensive today while visiting her oncologist Dr. Smith. Patient is admitted for sepsis secondary to possible empyema from chronic pleural effusions. # Septic shock now on pressor on 25meq of NE, due to empyema with chronic pleural effusions with loculations on CT scan. Chemotx one week ago. ID on the case, on IV antibiotic as per ID; continue with IV Zosyn renally dosed . further care per ICU team. Added SOlucortef as per ICU team. # ARF likely from ATN from sepsis and hypotension ; worsening cr 1.4-->1.9--> 2.1 as per nephro to hold IVF and start the patient on Lasix if BP allows , continue to hold metformin . Zosyn is adjusted according to renal function. #Hx of HTN , Hypotensive ; pO meds are on hold now due to septic shock continue to hold BP meds for now. #Metastatic Breast Ca with bone mets/Liver- Received chemotx one week ago. Dr. Smith on consult to see the patient #Elevated T Bili/LFTs - worsening T bili 15--14-->15.8 continue to hold Januvia , GI consult appreciated #T2DM Hold home janumet given renal/hepatic toxicity, SS with coverage ,check hemoglobin A1C PPX: SCDs, Heparin sq
[2017-08-31] MEDS: HYDROCORTISONE SOD SUCCINATE 100 MG/2 ML VIAL IVPB SCH (17:30)
--- NOTE | 2017-08-31 18:13 | CON.CARD ---
Consult Consult Specialty:: Cardiology Referred by:: ICU Reason for Consultation:: Rapid afib - History of Present Illness Chief Complaint: Hypotension, sepsis, jaundice History of Present Illness: 72 lyndsey with PMHx of HTN, fibromyalgia, Stage 4 metastatic breast cancer with mets to bone and liver, chronic malignant pleural effusions referred for hypotension BP 60's/40's. She had rec'd her latest dose of Gemcitabine on 08/22 and had been c/o of fatique and weakness. She was also noted to be more jaundiced. She denied CP, SON, headache or dizziness, cough, N/V/D. In the ED BP 90's/60's , HR 130's in rapid afib. Labs notable for WBC 7.6, lactate of 10, Total bili of 15,ABG 7.38/25/94/14.5. AGAP 21, Lactate 7. CXR w/ BL large pleural effusions She was given 2L NS bolus, alexander-cultured grew out e. coli, started on empiric Zosyn and vanco, Levophed gtt. - History Source History Provided By: Medical Record Limitations to Obtaining History: Clinical Condition - Past Medical History Cardio/Vascular: Yes: HTN Pulmonary: Yes: COPD Gastrointestinal: Yes: Ascites Hepatobiliary: Yes: Other (Liver mass) Endocrine: Yes: Diabetes Mellitus - Past Surgical History Past Surgical History: Yes: Hysterectomy, Mastectomy - Alcohol/Substance Use Hx Alcohol Use: No - Smoking History Smoking history: Former smoker Have you smoked in the past 12 months: No If you are a former smoker, when did you quit?: 1989 - Social History ADL: Independent History of Recent Travel: No Home Medications - Allergies Allergies/Adverse Reactions: Allergies Allergy/AdvReac Type Severity Reaction Status Date / Time No Known Drug Allergies Allergy Verified 08/29/17 11:40 - Home Medications Home Medications: Ambulatory Orders Xalatan 0.005% Eye Drops - 1 drop OU HS 09/01/16 Sitagliptin Phos/Metformin HCl [Janumet Xr 50-500 mg Tablet] 1 each PO DAILY Furosemide 20 mg PO DAILY 02/28/17 Potassium 1 tab PO DAILY 08/06/17 Review of Systems - Review of Systems Constitutional: reports: Lethargy Vital Signs: Vital Signs Temperature 98.6 F 08/31/17 13:33 Pulse Rate 100 H 08/31/17 16:00 Respiratory Rate 24 08/31/17 16:00 Blood Pressure 120/65 08/31/17 16:00 O2 Sat by Pulse Oximetry (%) 96 08/31/17 09:00 Constitutional: Yes: No Distress, Calm, Thin Respiratory: Yes: Regular, Diminished, On Nasal O2 Gastrointestinal: Yes: Normal Bowel Sounds, Soft Cardiovascular: Yes: Regular Rate and Rhythm JVD: No Carotid Bruit: No Heart Sounds: Yes: S1, S2 Murmur: Yes: Systolic Murmur, Grade 1 Edema: No - Other Data Labs, Other Data: CBC, BMP 08/31/17 05:55 08/31/17 05:55 INR, PTT INR 2.65 (0.82-1.09) H 08/31/17 05:55 Fibrinogen 359.0 mg/dL (238-498) 08/30/17 05:00 Imaging - Results Cat Scan: Report Reviewed (Chest CT: Moderate bilateral effusions, ascites, diffuse liver mets) Problem List - Problems (1) CHRISSY (acute kidney injury) Code(s): N17.9 - ACUTE KIDNEY FAILURE, UNSPECIFIED (2) Breast cancer metastasized to liver Code(s): C50.919 - MALIGNANT NEOPLASM OF UNSP SITE OF UNSPECIFIED FEMALE BREAST ; C78.7 - SECONDARY MALIG NEOPLASM OF LIVER AND INTRAHEPATIC BILE DUCT Qualifiers: Laterality: unspecified laterality Qualified Code(s): C50.919 - Malignant neoplasm of unspecified site of unspecified female breast; C78.7 - Secondary malignant neoplasm of liver and intrahepatic bile duct; C78.7 - Secondary malignant neoplasm of liver and intrahepatic bile duct; C78.7 - Secondary malignant neoplasm of liver and intrahepatic bile duct; C78.7 - Secondary malignant neoplasm of liver and intrahepatic bile duct (3) Coagulopathy Code(s): D68.9 - COAGULATION DEFECT, UNSPECIFIED (4) Hyperbilirubinemia Code(s): E80.6 - OTHER DISORDERS OF BILIRUBIN METABOLISM (5) Hypotension Code(s): I95.9 - HYPOTENSION, UNSPECIFIED Qualifiers: Hypotension type: other hypotension type Qualified Code(s): I95.89 - Other hypotension (6) Sepsis Code(s): A41.9 - SEPSIS, UNSPECIFIED ORGANISM Qualifiers: Sepsis type: Escherichia coli Qualified Code(s): A41.51 - Sepsis due to Escherichia coli [E. coli] (7) Metastasis from breast cancer Code(s): C79.9 - SECONDARY MALIGNANT NEOPLASM OF UNSPECIFIED SITE; C50.919 - MALIGNANT NEOPLASM OF UNSP SITE OF UNSPECIFIED FEMALE BREAST (8) Bilateral pleural effusion Code(s): J90 - PLEURAL EFFUSION, NOT ELSEWHERE CLASSIFIED (9) Breast cancer Code(s): C50.919 - MALIGNANT NEOPLASM OF UNSP SITE OF UNSPECIFIED FEMALE BREAST Qualifiers: Laterality: bilateral (10) Hypertension Code(s): I10 - ESSENTIAL (PRIMARY) HYPERTENSION Qualifiers: Hypertension type: essential hypertension Qualified Code(s): I10 - Essential (primary) hypertension (11) Malignant pleural effusion Code(s): J91.0 - MALIGNANT PLEURAL EFFUSION Assessment/Plan 08/31/2017 Echo: Normal LV and RV size and fxn, large pleural effusions, moderate pericardial effusions, mild TR 1. Paroxysmal atrial fibrillation with RVR 2. Intrahepatic cholestasis due to "innumerable" liver mets 3. Metastatic breast ca to liver and bone breast cancer, ascites and pleural effusions 4. HTN 5. CHRISSY due to ATN and hypotension 6. E. coli sepsis 7. Hyponatremia P:1. Levophed gtt to maintain MAP>65 mmHg 2. Diuresis as tolerated with monitor diuretic response, renal function and electrolytes 3. Abx course f/u surveillance cultures, steroids 4. Renal-dosed digoxin if afib recurs 5. Patient is DNR/DNI 6. Thank you for consultative opportunity
[2017-08-31] MEDS ORDERED: morphine SULFATE 4 MG/ML VIAL IVPUSH ONE (20:00)
--- NOTE | 2017-08-31 21:39 | PN ---
Progress Note (short form) - Note Progress Note: Patient seen and examined patient is lethargic NONVERBAL hEART- s1, s2 REGULAR Lungs: Clear to P&A Abd: Soft, Normal bowel sounds, No organomegaly Ext:No significant edema lABS/MEDS REVIEWED A/P 72 y/o patient with metastatic breast cancer, on gemzar, comes in with septic shoock, G- bacteremia cholestasis liver mets Sepsis portia poor prognosis discussed with daughter about poor prognosis. Now made DNR/DNI
[2017-08-31] MEDS: DEXTROSE 5%-NORMAL SALINE 1,000 ML IV SCH (23:50)
[2017-08-31] MEDS ORDERED: morphine SULFATE 4 MG/ML VIAL ONE (23:52)
[2017-08-31] MEDS: CHLORHEXIDINE GLUCONATE 4% CLEANSER FOR DECOLONIZATION TP SCH (23:56)
[2017-09-01] MEDS ORDERED: NOREPINEPHRINE BITARTRATE 4 MG/4 ML ML IV ONE ×4 (00:28→19:06)
[2017-09-01] MEDS ORDERED: PT OWN MED DRAWER 7, Y5N ONE ×2 (00:41→19:44)
[2017-09-01] MEDS: HYDROCORTISONE SOD SUCCINATE 100 MG/2 ML VIAL IVPB SCH ×3 (01:17→19:41)
[2017-09-01] MEDS: PIPERACILLIN/TAZOB 2.25 GM 2.25 GM in DEXTROSE 5%-WATER - 50 ML IVPB SCH ×4 (03:00→22:33)
[2017-09-01] MEDS: NOREPINEPHRINE BITARTRATE 8,000 MCG in DEXTROSE 5%-WATER - 492 ML IV SCH (04:00)
[2017-09-01] MEDS ORDERED: HYDROmorphone HCL CARPU-JECT 2 MG/1 ML DISP.SYRIN ONE (06:03)
[2017-09-01 06:13] LABS: MCHC 33.2 g/dl (32.0-36.0); MEAN CELL VOLUME 99.2 fl (80-96); MEAN PLT VOLUME 9.1 fl (7.5-11.1); PLATELET COUNT 105 K/MM3 (134-434); RDW 25.6 % (11.6-15.6); WHITE BLOOD COUNT 28.5 K/mm3 (4.0-10.0)
[2017-09-01] MEDS: INSULIN SLIDING SCALE (NOVOLOG) 1 VIAL SQ SCH ×4 (06:13→23:24)
[2017-09-01 06:25] LABS: INR 2.61 (0.82-1.09); PROTHROMBIN TIME (PATIENT) 29.5 SEC (9.98-11.88)
[2017-09-01] MEDS: HYDROmorphone HCL CARPU-JECT 2 MG/1 ML DISP.SYRIN IVPUSH PRN ×3 (06:26→15:55)
[2017-09-01 06:28] LABS: ACTIVATED PTT 42.1 SECONDS (26.9-34.4)
[2017-09-01 06:47] LABS: ALBUMIN 1.7 g/dl (3.4-5.0); ANION GAP 13 (8-16); CO2 19 mmol/L (21-32); CREATININE 1.7 mg/dL (0.55-1.02); GLUCOSE,RANDOM 288 mg/dL (74-106); MAGNESIUM 1.8 mg/dL (1.8-2.4); PHOSPHOROUS 2.8 mg/dL (2.5-4.9); SGOT/AST 261 U/L (15-37); SGPT/ALT 89 U/L (12-78)
[2017-09-01 06:57] LABS: ALK PHOS 160 U/L (45-117); TOT PROT 4.4 g/dl (6.4-8.2)
[2017-09-01 06:59] LABS: BILIRUBIN,TOTAL 16.6 mg/dL (0.2-1.0)
[2017-09-01 07:00] LABS: CALCIUM 5.7 mg/dL (8.5-10.1)
[2017-09-01] MEDS ORDERED: INSULIN SLIDING SCALE (NOVOLOG) 1 VIAL SQ SCH (07:00)
--- NOTE | 2017-09-01 09:25 | PN ---
Progress Note (short form) - Note Progress Note: lethargic, but awake moaning vomited coffee grounds remains on pressors remains dyspneic Vital Signs Period Temp Pulse Resp BP Sys/Giron Pulse Ox Last 24 Hr 98.2 F-98.8 F 96-108 - 101-124/42-75 98-99 no thrush cor-rrr lungs decreased bs at bases abd firm,nt ext +edema +right chest wall part CBC, BMP 09/01/17 05:40 09/01/17 05:40 Microbiology 08/29/17 12:21 Blood - Sofia Cath Blood Culture - Final Escherichia Coli 08/29/17 11:40 Blood - Sofia Cath Blood Culture - Final Escherichia Coli 08/29/17 12:21 Urine - Urine Clean Catch Urine Culture - Final NO GROWTH OBTAINED Active Medications Chlorhexidine Gluconate (Hibiclens For Decolonization -) 1 applic TP HS KLAUS Last Admin: 08/31/17 23:56 Dose: 1 applic Hydrocortisone Sodium Succinate (Solu-Cortef -) 100 mg IVPB Q8H-IV KLAUS Last Admin: 09/01/17 01:17 Dose: 100 mg Hydromorphone HCl (Dilaudid Injection -) 0.4 mg IVPUSH Q4H PRN PRN Reason: PAIN Last Admin: 09/01/17 06:26 Dose: 0.4 mg Piperacillin Sod/Tazobactam (Sod 2.25 gm/ Dextrose) 50 mls @ 100 mls/hr IVPB Q6H-IV KLAUS PRN Reason: Protocol Last Admin: 09/01/17 03:00 Dose: 100 mls/hr Dextrose/Sodium Chloride (D5-Ns -) 1,000 mls @ 100 mls/hr IV ASDIR KLAUS Last Admin: 08/31/17 23:50 Dose: 100 mls/hr Norepinephrine Bitartrate 8, (000 mcg/ Dextrose) 500 mls @ 18.75 mls/hr IV TITR KLAUS; 5 MCG/MIN PRN Reason: Protocol Last Admin: 09/01/17 04:00 Dose: 25 mcg/min, 93.75 mls/hr Insulin Aspart (Novolog Vial Sliding Scale -) 1 vial SQ ACHS KLAUS PRN Reason: Protocol Last Admin: 09/01/17 06:13 Dose: 6 units Mupirocin (Bactroban Ointment (For Decolonization) -) 1 applic NS BID KLAUS Stop: 09/03/17 21:59 Last Admin: 08/31/17 23:56 Dose: 1 applic Oxycodone HCl (Roxicodone -) 10 mg PO Q4H PRN PRN Reason: PAIN Last Admin: 08/31/17 01:03 Dose: 10 mg a/p gram negative bacteremia ?aspiration- bilateral cxray findings noted coffee ground emesis- RN to notify ICU metastatic breast cancer now DNR/DNI continue zosyn overall prognosis is poor
[2017-09-01 09:31] LABS: ANISOCYTOSIS 3+; HYPOCHROMIA 1+; MACROCYTOSIS 1+; METAMYELOCYTE 4 % (0-2); MICROCYTOSIS 1+; MYELOCYTE 3 % (0-2); POLYCHROMASIA 1+; TARGET CELLS FEW; TOTAL CELLS COUNTED 100
[2017-09-01 09:32] LABS: PLATELET COMMENTS NO CLUMPING NOTED; PLATELET ESTIMATE DECREASED
[2017-09-01] MEDS: MUPIROCIN 2% TOPICAL OINTMENT FOR DECOLONIZATION NS SCH ×2 (10:00→22:34)
--- NOTE | 2017-09-01 10:45 | PN ---
Physical Exam: SUBJECTIVE: Patient seen and examined Patient is very lethargic with labored breathing, continues to be on pressor.family at bedside. OBJECTIVE: Vital Signs Temperature 98.6 F 09/01/17 06:00 Pulse Rate 102 H 09/01/17 09:11 Respiratory Rate 20 09/01/17 06:00 Blood Pressure 111/63 09/01/17 06:00 O2 Sat by Pulse Oximetry (%) 99 09/01/17 09:11 GENERAL: The patient is very lethargic with labored breathing on VM now. HEAD: Normal with no signs of trauma. EYES: icteric sclera. LUNGS: positive for Rhochi bl, with decreased BS BL . HEART: Iregularly-irregular rate of 102, S1 S2 positive. ABDOMEN: Soft, distended , normoactive bowel sounds, positive for ascites EXTREMITIES: 2+ pulses, warm, well-perfused, positive for edema. NEUROLOGICAL: lethargic, lying in bed , doesn't follow any commands at this time PSYCH: Normal mood, normal affect. SKIN: Warm, dry. CBCD WBC 28.5 K/mm3 (4.0-10.0) H D 09/01/17 05:40 RBC 2.73 M/mm3 (3.60-5.2) L 09/01/17 05:40 Hgb 9.0 GM/dL (10.7-15.3) L 09/01/17 05:40 Hct 27.0 % (32.4-45.2) L 09/01/17 05:40 MCV 99.2 fl (80-96) H 09/01/17 05:40 MCHC 33.2 g/dl (32.0-36.0) 09/01/17 05:40 RDW 25.6 % (11.6-15.6) H 09/01/17 05:40 Plt Count 105 K/MM3 (134-434) L D 09/01/17 05:40 MPV 9.1 fl (7.5-11.1) 09/01/17 05:40 CMP Sodium 131 mmol/L (136-145) L 09/01/17 05:40 Potassium 4.5 mmol/L (3.5-5.1) 09/01/17 05:40 Chloride 99 mmol/L (98-107) 09/01/17 05:40 Carbon Dioxide 19 mmol/L (21-32) L 09/01/17 05:40 Anion Gap 13 (8-16) 09/01/17 05:40 BUN 41 mg/dL (7-18) H 09/01/17 05:40 Creatinine 1.7 mg/dL (0.55-1.02) H 09/01/17 05:40 Creat Clearance w eGFR 29.71 (>60) 09/01/17 05:40 Random Glucose 288 mg/dL (74-106) H D 09/01/17 05:40 Calcium 5.7 mg/dL (8.5-10.1) L* 09/01/17 05:40 Total Bilirubin 16.6 mg/dL (0.2-1.0) H* 09/01/17 05:40 AST 261 U/L (15-37) H 09/01/17 05:40 ALT 89 U/L (12-78) H 09/01/17 05:40 Alkaline Phosphatase 160 U/L (45-117) H 09/01/17 05:40 Total Protein 4.4 g/dl (6.4-8.2) L 09/01/17 05:40 Albumin 1.7 g/dl (3.4-5.0) L 09/01/17 05:40 CARDIAC ENZYMES Creatine Kinase 55 IU/L (26-192) 08/30/17 00:12 Troponin I < 0.02 ng/ml (0.00-0.05) 08/30/17 00:12 Active Medications Generic Name Dose Route Start Last Admin Trade Name Bolivarq PRN Reason Stop Dose Admin Chlorhexidine Gluconate 1 applic 08/29/17 22:00 08/31/17 23:56 Hibiclens For Decolonization - TP 1 applic HS KLAUS Administration Hydrocortisone Sodium Succinate 100 mg 08/31/17 16:30 09/01/17 01:17 Solu-Cortef - IVPB 100 mg Q8H-IV KLAUS Administration Hydromorphone HCl 0.4 mg 09/01/17 06:15 09/01/17 10:14 Dilaudid Injection - IVPUSH 0.4 mg Q4H PRN Administration PAIN Piperacillin Sod/Tazobactam 50 mls @ 100 mls/hr 08/30/17 09:30 09/01/17 03:00 Sod 2.25 gm/ Dextrose IVPB 100 mls/hr Q6H-IV KLAUS Administration Protocol Dextrose/Sodium Chloride 1,000 mls @ 100 mls/hr 08/30/17 19:00 08/31/17 23:50 D5-Ns - IV 100 mls/hr ASDIR KLAUS Administration Norepinephrine Bitartrate 8, 500 mls @ 18.75 mls/hr 08/31/17 04:00 09/01/17 04:00 000 mcg/ Dextrose IV 25 mcg/min TITR KLAUS 93.75 mls/hr Protocol Administration 5 MCG/MIN Insulin Aspart 1 vial 09/01/17 07:00 09/01/17 06:13 Novolog Vial Sliding Scale - SQ 6 units ACHS KLAUS Administration Protocol Mupirocin 1 applic 08/29/17 22:00 08/31/17 23:56 Bactroban Ointment (For Decolonization) - NS 09/03/17 21:59 1 applic BID KLAUS Administration Oxycodone HCl 10 mg 08/30/17 00:33 08/31/17 01:03 Roxicodone - PO 10 mg Q4H PRN Administration PAIN Home Medications Medication Instructions Recorded Xalatan 0.005% Eye Drops - 1 drop OU HS 09/01/16 Sitagliptin Phos/Metformin HCl 1 each PO DAILY 11/08/16 [Janumet Xr 50-500 mg Tablet] Furosemide 20 mg PO DAILY 02/28/17 Potassium 1 tab PO DAILY 08/06/17 CXR 08/29 - Since 08/08/2017, the bilateral pulmonary and pleural changes with right port persist. LE Duplex 08/29: Negative for DVTs CT scan of chest/abdomen 08/29 - 1. Moderate bilateral pleural effusions with loculations as described above. 2. Atelectatic changes of both lower lobes. 3. Ascites. 4. Heterogeneous liver consistent with diffuse metastases, although discrete lesions cannot be delineated without intravenous contrast. 5. Anasarca. 6. Extensive sclerotic bony metastases. Please see above discussion. ASSESSMENT AND PLAN: 72 yo woman with pmhx of HTN, fibromyalgia, and metastatic breast cancer (bone mets; liver), with chronic pleural effusions who presents with one week of worsening fatigue s/p chemo tx, was found to be hypotensive today while visiting her oncologist Dr. Smith. Patient is admitted for sepsis secondary to possible empyema from chronic pleural effusions. Patient is lethargic with labored breathing on VM. # Septic shock continues on pressor 25meq of NE, due to empyema with chronic pleural effusions with loculations on CT scan. Chemotx one week ago. ID on the case, on IV antibiotic as per ID; continue with IV Zosyn renally dosed . further care per ICU team. Added SOlucortef as per ICU team. # ARF likely from ATN from sepsis and hypotension ; imrpoving cr 1.4-->1.9--> 2.1-->1.7 , continue to hold metformin . Zosyn is adjusted according to renal function. # Elevated T Bili/LFTs - worsening T bili 15--14-->15.8 continue to hold Januvia , GI consult appreciated #Hx of HTN , Hypotensive ; all the bp meds continue to be on hold .since patient in septic chock on pressor . #Metastatic Breast Ca with bone mets/Liver- Received chemotx one week ago. Dr. Smith on consult to see the patient #T2DM Hold home janumet given renal/hepatic toxicity, SS with coverage ,check hemoglobin A1C PPX: SCDs, Heparin sq very poor prognosis , discussed with the family , they are aware. Visit type - Emergency Visit Emergency Visit: Yes ED Registration Date: 08/29/17 Care time: The patient presented to the Emergency Department on the above date and was hospitalized for further evaluation of their emergent condition. - New Patient This patient is new to me today: No - Critical Care Critical Care patient: Yes Total Critical Care Time (in minutes): 35 Critical Care Statement: The care of this patient involved high complexity decision making to prevent further life threatening deterioration of the patient 's condition and/or to evaluate & treat vital organ system(s) failure or risk of failure.
--- NOTE | 2017-09-01 11:15 | PN ---
Progress Note (short form) - Note Progress Note: PULMONARY/CCM Pt seen and examined in the ICU. Lethargic, breathing more labored. Remains on levophed gtt. Last Vital Signs Temp Pulse Resp BP Pulse Ox 98.6 F 102 H 20 111/63 99 09/01/17 06:00 09/01/17 09:11 09/01/17 06:00 09/01/17 06:00 09/01/17 09:11 Intake & Output 08/29/17 08/30/17 08/31/17 09/01/17 23:59 23:59 23:59 23:59 Intake Total 200 4225 5030 2516 Output Total 100 650 Balance 200 4125 4380 2516 Weight 143 lb 153 lb 14.122 oz 176 lb 171 lb 15.369 oz Gen: lethargic, tachypneic Heart: tachycardic, irregular Lung: scattered rhonchi Abd: softly distended, +ascites Ext: + edema CBC, BMP 09/01/17 05:40 09/01/17 05:40 Active Medications Chlorhexidine Gluconate (Hibiclens For Decolonization -) 1 applic TP HS KLAUS Last Admin: 08/31/17 23:56 Dose: 1 applic Hydrocortisone Sodium Succinate (Solu-Cortef -) 100 mg IVPB Q8H-IV KLAUS Last Admin: 09/01/17 01:17 Dose: 100 mg Hydromorphone HCl (Dilaudid Injection -) 0.4 mg IVPUSH Q4H PRN PRN Reason: PAIN Last Admin: 09/01/17 10:14 Dose: 0.4 mg Piperacillin Sod/Tazobactam (Sod 2.25 gm/ Dextrose) 50 mls @ 100 mls/hr IVPB Q6H-IV KLAUS PRN Reason: Protocol Last Admin: 09/01/17 03:00 Dose: 100 mls/hr Dextrose/Sodium Chloride (D5-Ns -) 1,000 mls @ 100 mls/hr IV ASDIR KLAUS Last Admin: 08/31/17 23:50 Dose: 100 mls/hr Norepinephrine Bitartrate 8, (000 mcg/ Dextrose) 500 mls @ 18.75 mls/hr IV TITR KLAUS; 5 MCG/MIN PRN Reason: Protocol Last Admin: 09/01/17 04:00 Dose: 25 mcg/min, 93.75 mls/hr Insulin Aspart (Novolog Vial Sliding Scale -) 1 vial SQ ACHS KLAUS PRN Reason: Protocol Last Admin: 09/01/17 06:13 Dose: 6 units Mupirocin (Bactroban Ointment (For Decolonization) -) 1 applic NS BID KLAUS Stop: 09/03/17 21:59 Last Admin: 08/31/17 23:56 Dose: 1 applic Oxycodone HCl (Roxicodone -) 10 mg PO Q4H PRN PRN Reason: PAIN Last Admin: 08/31/17 01:03 Dose: 10 mg A/P E Coli Bacteremia Septic Shock Metastatic Breast Ca to Liver, Bone Elevated LFTs likely from intrahepatic cholestasis Acute Kidney Injury Lactic Acidosis Hyponatremia - continue antibiotics - IVF - pressor support to maintain MAP >65 - monitor lytes - empiric steroids - pt DNR/DNI - poor overall prognosis, continue discussions regarding goals of care critical care time spent in reviewing chart, evaluating patient and formulating plan 35 min
--- NOTE | 2017-09-01 11:21 | PN ---
Progress Note, Physician History of Present Illness: Lethargic with increasing O2 requirements now on 40% VM. Back in rapid afib. - Current Medication List Current Medications: Active Medications Chlorhexidine Gluconate (Hibiclens For Decolonization -) 1 applic TP HS KLAUS Last Admin: 08/31/17 23:56 Dose: 1 applic Hydrocortisone Sodium Succinate (Solu-Cortef -) 100 mg IVPB Q8H-IV KLAUS Last Admin: 09/01/17 01:17 Dose: 100 mg Hydromorphone HCl (Dilaudid Injection -) 0.4 mg IVPUSH Q4H PRN PRN Reason: PAIN Last Admin: 09/01/17 10:14 Dose: 0.4 mg Piperacillin Sod/Tazobactam (Sod 2.25 gm/ Dextrose) 50 mls @ 100 mls/hr IVPB Q6H-IV KLAUS PRN Reason: Protocol Last Admin: 09/01/17 03:00 Dose: 100 mls/hr Dextrose/Sodium Chloride (D5-Ns -) 1,000 mls @ 100 mls/hr IV ASDIR KLAUS Last Admin: 08/31/17 23:50 Dose: 100 mls/hr Norepinephrine Bitartrate 8, (000 mcg/ Dextrose) 500 mls @ 18.75 mls/hr IV TITR KLAUS; 5 MCG/MIN PRN Reason: Protocol Last Admin: 09/01/17 04:00 Dose: 25 mcg/min, 93.75 mls/hr Insulin Aspart (Novolog Vial Sliding Scale -) 1 vial SQ ACHS KLAUS PRN Reason: Protocol Last Admin: 09/01/17 06:13 Dose: 6 units Mupirocin (Bactroban Ointment (For Decolonization) -) 1 applic NS BID KLAUS Stop: 09/03/17 21:59 Last Admin: 08/31/17 23:56 Dose: 1 applic Oxycodone HCl (Roxicodone -) 10 mg PO Q4H PRN PRN Reason: PAIN Last Admin: 08/31/17 01:03 Dose: 10 mg - Objective Vital Signs: Vital Signs Temperature 98.6 F 09/01/17 06:00 Pulse Rate 102 H 09/01/17 09:11 Respiratory Rate 20 09/01/17 06:00 Blood Pressure 111/63 09/01/17 06:00 O2 Sat by Pulse Oximetry (%) 99 09/01/17 09:11 Constitutional: Yes: No Distress, Calm Neck: Yes: Supple Cardiovascular: Yes: Tachycardia, Pulse Irregular Respiratory: Yes: Regular, Diminished, On Venti-Mask, Rhonchi Gastrointestinal: Yes: Normal Bowel Sounds, Soft Edema: Yes Edema: LLE: Trace, RLE: Trace Labs: CBC, BMP 09/01/17 05:40 09/01/17 05:40 INR, PTT INR 2.61 (0.82-1.09) H 09/01/17 05:40 Fibrinogen 359.0 mg/dL (238-498) 08/30/17 05:00 - ....Imaging Chest X-ray: Report Reviewed (Progressive bilateral changes) Problem List - Problems (1) CHRISSY (acute kidney injury) Code(s): N17.9 - ACUTE KIDNEY FAILURE, UNSPECIFIED (2) Breast cancer metastasized to liver Code(s): C50.919 - MALIGNANT NEOPLASM OF UNSP SITE OF UNSPECIFIED FEMALE BREAST ; C78.7 - SECONDARY MALIG NEOPLASM OF LIVER AND INTRAHEPATIC BILE DUCT Qualifiers: Laterality: unspecified laterality Qualified Code(s): C50.919 - Malignant neoplasm of unspecified site of unspecified female breast; C78.7 - Secondary malignant neoplasm of liver and intrahepatic bile duct; C78.7 - Secondary malignant neoplasm of liver and intrahepatic bile duct; C78.7 - Secondary malignant neoplasm of liver and intrahepatic bile duct; C78.7 - Secondary malignant neoplasm of liver and intrahepatic bile duct (3) Coagulopathy Code(s): D68.9 - COAGULATION DEFECT, UNSPECIFIED (4) Hyperbilirubinemia Code(s): E80.6 - OTHER DISORDERS OF BILIRUBIN METABOLISM (5) Hypotension Code(s): I95.9 - HYPOTENSION, UNSPECIFIED Qualifiers: Hypotension type: other hypotension type Qualified Code(s): I95.89 - Other hypotension (6) Sepsis Code(s): A41.9 - SEPSIS, UNSPECIFIED ORGANISM Qualifiers: Sepsis type: Escherichia coli Qualified Code(s): A41.51 - Sepsis due to Escherichia coli [E. coli] (7) Metastasis from breast cancer Code(s): C79.9 - SECONDARY MALIGNANT NEOPLASM OF UNSPECIFIED SITE; C50.919 - MALIGNANT NEOPLASM OF UNSP SITE OF UNSPECIFIED FEMALE BREAST (8) Bilateral pleural effusion Code(s): J90 - PLEURAL EFFUSION, NOT ELSEWHERE CLASSIFIED (9) Breast cancer Code(s): C50.919 - MALIGNANT NEOPLASM OF UNSP SITE OF UNSPECIFIED FEMALE BREAST Qualifiers: Laterality: bilateral (10) Hypertension Code(s): I10 - ESSENTIAL (PRIMARY) HYPERTENSION Qualifiers: Hypertension type: essential hypertension Qualified Code(s): I10 - Essential (primary) hypertension Assessment/Plan 08/31/2017 Echo: Normal LV and RV size and fxn, large pleural effusions, moderate pericardial effusions, mild TR 1. Acute hypoxic respiratory failure 2. Paroxysmal atrial fibrillation with RVR 3. Intrahepatic cholestasis due to "innumerable" liver mets 4. Metastatic breast ca to liver and bone breast cancer, ascites and pleural effusions 5. CHRISSY due to ATN and hypotension 6. May-sensitive E. coli septic shock 7. Hyponatremia P:1. Levophed gtt to maintain MAP>65 mmHg 2. Diuresis as tolerated with monitor diuretic response, renal function and electrolytes 3. Abx course, steroids 4. Renal-dosed digoxin if rapid afib persists 5. Patient is DNR/DNI, poor prognosis
[2017-09-01] MEDS ORDERED: DIGOXIN 0.5 MG/2 ML AMPUL ONE (11:58)
--- NOTE | 2017-09-01 15:05 | PN ---
Progress Note (short form) - Note Progress Note: Impression 1. CHRISSY 2. breast cancer with mets 3. pleural effusions 4. ascites 5. hx HTN 6. gram neg bacteremia 7. sepsis 8. lactic acidosis 9. hyperbili/liver failure 10. hyponatremia Current Medications Chlorhexidine Gluconate (Hibiclens For Decolonization -) 1 applic TP HS KLAUS Last Admin: 08/31/17 23:56 Dose: 1 applic Hydrocortisone Sodium Succinate (Solu-Cortef -) 100 mg IVPB Q8H-IV KLAUS Last Admin: 09/01/17 11:33 Dose: 100 mg Hydromorphone HCl (Dilaudid Injection -) 0.4 mg IVPUSH Q4H PRN PRN Reason: PAIN Last Admin: 09/01/17 10:14 Dose: 0.4 mg Piperacillin Sod/Tazobactam (Sod 2.25 gm/ Dextrose) 50 mls @ 100 mls/hr IVPB Q6H-IV KLAUS PRN Reason: Protocol Last Admin: 09/01/17 10:00 Dose: 100 mls/hr Dextrose/Sodium Chloride (D5-Ns -) 1,000 mls @ 100 mls/hr IV ASDIR KLAUS Last Admin: 08/31/17 23:50 Dose: 100 mls/hr Norepinephrine Bitartrate 8, (000 mcg/ Dextrose) 500 mls @ 18.75 mls/hr IV TITR KLAUS; 5 MCG/MIN PRN Reason: Protocol Last Admin: 09/01/17 04:00 Dose: 25 mcg/min, 93.75 mls/hr Insulin Aspart (Novolog Vial Sliding Scale -) 1 vial SQ ACHS KLAUS PRN Reason: Protocol Last Admin: 09/01/17 06:13 Dose: 6 units Mupirocin (Bactroban Ointment (For Decolonization) -) 1 applic NS BID KLAUS Stop: 09/03/17 21:59 Last Admin: 09/01/17 10:00 Dose: 1 applic Oxycodone HCl (Roxicodone -) 10 mg PO Q4H PRN PRN Reason: PAIN Last Admin: 08/31/17 01:03 Dose: 10 mg Last Vital Signs Temp Pulse Resp BP Pulse Ox 98.6 F 102 H 20 111/63 99 09/01/17 06:00 09/01/17 09:11 09/01/17 06:00 09/01/17 06:00 09/01/17 09:11 CBC, BMP 09/01/17 05:40 09/01/17 05:40 IMP- CHRISSY renal function improving Plan - pts renal function is worsening - likely ATN from sepsis and hypotension - pressors to a MAP of 65 - recommend lasix with albumin if BP permits - discussed with ICU team - monitor pulse ox - repeat blood cultures - pt appears volume overloaded - recommend stopping fluids and using diuretics - monitor LFTs and get GI eval - check ultrasound kidneys and bladder - monitor lactic acid levels, may have a mixed type A and B lactic acidosis as she is septic/hypotensive and she has metastatic disease - check urine lytes and pipe cleaner to calc fena - will follow Dr Vital
--- NOTE | 2017-09-01 22:09 | PN ---
Progress Note (short form) - Note Progress Note: Patient seen and examined patient is lethargic NONVERBAL Last Vital Signs Temp Pulse Resp BP Pulse Ox 98.2 F 129 H 8 L 81/66 90 L 09/01/17 18:00 09/01/17 18:00 09/01/17 20:55 09/01/17 20:00 09/01/17 20:55 hEART- s1, s2 REGULAR Lungs: Clear to P&A Abd: Soft, Normal bowel sounds, No organomegaly Ext:No significant edema lABS/MEDS REVIEWED A/P 72 y/o patient with metastatic breast cancer, on gemzar, comes in with septic shoock, G- bacteremia cholestasis liver mets Sepsis portia poor prognosis DNR/DNI awaiting arival of her brothers
[2017-09-01] MEDS: DEXTROSE 5%-NORMAL SALINE 1,000 ML IV SCH (22:32)
[2017-09-01] MEDS: CHLORHEXIDINE GLUCONATE 4% CLEANSER FOR DECOLONIZATION TP SCH (22:34)
[2017-09-02] MEDS ORDERED: NOREPINEPHRINE BITARTRATE 4 MG/4 ML ML IV ONE (00:36)
[2017-09-02] MEDS: HYDROmorphone HCL CARPU-JECT 2 MG/1 ML DISP.SYRIN IVPUSH PRN (00:55)
[2017-09-02] MEDS: NOREPINEPHRINE BITARTRATE 8,000 MCG in DEXTROSE 5%-WATER - 492 ML IV SCH (00:56)
[2017-09-02] MEDS: HYDROCORTISONE SOD SUCCINATE 100 MG/2 ML VIAL IVPB SCH (01:00)
[2017-09-02 05:52] LABS: MCH 32.7 pg (25.7-33.7); MCHC 29.4 g/dl (32.0-36.0); MEAN CELL VOLUME 111.5 fl (80-96); MEAN PLT VOLUME 8.5 fl (7.5-11.1); PLATELET COUNT 63 K/MM3 (134-434); RDW 27.8 % (11.6-15.6); WHITE BLOOD COUNT 25.5 K/mm3 (4.0-10.0)
--- NOTE | 2017-09-02 06:24 | HOSP ---
Subjective - Review of Symptoms Subjective: Patient was seen and examined due to ASYSTOLE. Patient noted to be DNR/DNI Patient seen and examined. Patient not responsive to verbal, tactile, and painful stimuli No spontaneous respirations No spontaneous movements Pulses were undetectable bilaterally No breath sounds or heart sounds on auscultation Pupils were dilated and non-reactive. No gag reflex Vital signs: HR 0; BP 0/0. Rhythm Asystole Time of pronounciation: 06:[address] Fonseca notified RN to call family and PMD.
[2017-09-02 06:30] VITALS: BP 80/34; PULSE 88; TEMP 97.2
[2017-09-02 06:31] LABS: INR 4.69 (0.82-1.09)
[2017-09-02 06:51] LABS: ALBUMIN 1.1 g/dl (3.4-5.0); ANION GAP 19 (8-16); BILIRUBIN,DIRECT 8.1 mg/dL (0.0-0.2); BILIRUBIN,TOTAL 10.6 mg/dL (0.2-1.0); CO2 9 mmol/L (21-32); CREATININE 2.3 mg/dL (0.55-1.02); GLUCOSE,RANDOM 226 mg/dL (74-106); PHOSPHOROUS 8.4 mg/dL (2.5-4.9)
[2017-09-02 06:52] LABS: ALK PHOS 364 U/L (45-117)
[2017-09-02 07:07] LABS: SGPT/ALT 571 U/L (12-78)
[2017-09-02 07:09] LABS: CALCIUM 5.1 mg/dL (8.5-10.1)
--- NOTE | 2017-09-02 12:14 | DS ---
Physical Exam: SUBJECTIVE: Patient seen and examined by our medical team on 09/01 AM: Per medical record (09/01 AM): -Patient is very lethargic with labored breathing, continues to be on pressor.family at bedside. Covering night team (Dr. Mccormack) was called to bedside by ICU nursing staff AM. Per medical record: Patient was seen and examined due to ASYSTOLE. Patient noted to be DNR/DNI Patient seen and examined. Patient not responsive to verbal, tactile, and painful stimuli No spontaneous respirations No spontaneous movements Pulses were undetectable bilaterally No breath sounds or heart sounds on auscultation Pupils were dilated and non-reactive. No gag reflex Vital signs: HR 0; BP 0/0. Rhythm Asystole Time of pronounciation: 06:[address] Fonseca notified RN to call family and PMD. OBJECTIVE: Vital Signs Intake & Output 08/30/17 08/31/17 09/01/17 09/02/17 23:59 23:59 23:59 23:59 Intake Total 4225 5030 6256 1410 Output Total 100 650 Balance 4125 4380 6256 1410 Weight 69.8 kg 79.832 kg 78 kg 78.907 kg Period Temp Pulse Resp BP Sys/Giron Pulse Ox Last 24 Hr 97.2 F-98.2 F 87-140 8-18 75-94/34-66 90 PHYSICAL EXAM Per last examination by attending, Dr. Webster (09/01 AM) GENERAL: The patient is very lethargic with labored breathing on VM now. HEAD: Normal with no signs of trauma. EYES: icteric sclera. LUNGS: positive for Rhochi bl, with decreased BS BL . HEART: Iregularly-irregular rate of 102, S1 S2 positive. ABDOMEN: Soft, distended , normoactive bowel sounds, positive for ascites EXTREMITIES: 2+ pulses, warm, well-perfused, positive for edema. NEUROLOGICAL: lethargic, lying in bed , doesn't follow any commands at this time PSYCH: Normal mood, normal affect. SKIN: Warm, dry. LABS Laboratory Results - last 24 hr CBC, BMP 09/02/17 05:30 09/02/17 05:30 09/02/17 09/02/17 09/02/17 05:30 05:30 05:30 WBC 25.5 H RBC 1.93 L D Hgb 6.3 L* D Hct 21.5 L D MCV 111.5 H D MCH 32.7 MCHC 29.4 L RDW 27.8 H Plt Count 63 L D MPV 8.5 Neutrophils % No Result Required. Neutrophils % (Manual) No Result Required. Lymphocytes % No Result Required. PT with INR 53.00 H INR 4.69 H* D Sodium 131 L Potassium Chloride 103 Carbon Dioxide 9 L D Anion Gap 19 H BUN 43 H Creatinine 2.3 H D Random Glucose 226 H D Lactic Acid Calcium 5.1 L* Phosphorus 8.4 H D Magnesium Y Total Bilirubin 10.6 H D Direct Bilirubin 8.1 H D AST Y ALT 571 H D Alkaline Phosphatase 364 H D Total Protein 3.0 L D Albumin 1.1 L D 09/02/17 05:30 WBC RBC Hgb Hct MCV MCH MCHC RDW Plt Count MPV Neutrophils % Neutrophils % (Manual) Lymphocytes % PT with INR INR Sodium Potassium Chloride Carbon Dioxide Anion Gap BUN Creatinine Random Glucose Lactic Acid 11.8 H* Calcium Phosphorus Magnesium Total Bilirubin Direct Bilirubin AST ALT Alkaline Phosphatase Total Protein Albumin HOSPITAL COURSE: Date of Admission:08/29/17 Date of Discharge: 09/02/17 72 yo woman with pmh of HTN, fibromyalgia, and metastatic breast cancer ( numerous mets to bone, liver), with chronic pleural effusions who presented with one week of worsening fatigue s/p chemo tx one week prior, found to be hypotensive to 60/40 in during outpt f/u appointment at Dr. Smith's office in [facility], sent to ED. On presentation, pt determined to be in severe sepsis with lactate of 10, tachycardia to 128 and BP of 92/65, however remained afebrile with no wbc elevation. On exam, pt was severely jaundiced with prominent hepatosplenomegaly and severe fatigue. Ct scan of chest/abdomen (08/29) was notable for BL pleural effusions w/ possible loculations, ascites, heterogenous enlarged liver and numerous bony mets. Pt received 2L NS boluses, treated empirically w/ vanc/zosyn after cultures were drawn and was transferred to the ICU. Possible sources included empyema, SBP, PNA or UTI (+ UA for WBCs). Other pertinent lab abnormalities on presentation include Total Bilirubin 15, Cr 1.4 and a calculated MELD score of 33. ID, Pulmonology, Renal, GI and Heme/Onc were all consulted on admission. Per ID, pt was continued on Zosyn w/ gentamycin with consideration for thoracentesis/paracentesis, however given metastatic dz and neoplastic nature of pleural effusions, pt was treated more conservatively. Pt BP continue to trend downward despite aggressive volume resuscitation, requiring levo gtt for BP support in ICU. Blood cultures drawn 08/29 resulted positive for E. Coli bacteremia and patient was continued on zosyn/gentamycin regimen. ICU course was further complicated by episode of Afib w/ RVR on 08/30, which failed to respond to digoxin 0.25 mg and resolved with cardizem 10mg IV push. Pt code status transitioned to DNR/DNI on 08/31. Pt seen by JAVIER, determined to be in fulminant liver failure w/ intrahepatic cholestasis due to "innumerable " liver tumor burden, recommended supportive care. Pt continued to require BP support on increased levo dose, w/ uptrending WBC count to 21 on 08/31. Pt w/ significant third-spacing of most IV fluid support due to portal-hypertension/ hypoalbuminemia. Pt continued to deteriorate clinically from 08/31-09/01, labored breathing on venti mask and poor hemodynamic stability, tachy w/ downtrending BP on max levo. Pt made comfortable with morphine/dilaudid for pain control and family was present at bedside. Pt at 6:18AM 09/02. Micro: Microbiology 08/29/17 12:21 Blood - Sofia Cath Blood Culture - Final Escherichia Coli 08/29/17 11:40 Blood - Sofia Cath Blood Culture - Final Escherichia Coli 08/29/17 12:21 Urine - Urine Clean Catch Urine Culture - Final NO GROWTH OBTAINED Imaging: CXR 08/29 - Since 08/08/2017, the bilateral pulmonary and pleural changes with right port persist. CXR 08/30 - Worsening of BL pleural effusions/congestion. LE Duplex 08/29: Negative for DVTs CT scan of chest/abdomen 08/29 - 1. Moderate bilateral pleural effusions with loculations as described above. 2. Atelectatic changes of both lower lobes. 3. Ascites. 4. Heterogeneous liver consistent with diffuse metastases, although discrete lesions cannot be delineated without intravenous contrast. 5. Anasarca. 6. Extensive sclerotic bony metastases. Please see above discussion. RUQ/Renal/Pelvic U/S 08/30 - IMPRESSION: 1. Enlarged and heterogeneous liver. 2. No evidence of hydronephrosis or acute renal pathology. 3. Small amount of ascites. Markedly limited study as described above. CXR 08/31: BL pleural effusions. No pneumo. ECHO 08/31 - Large BL pleural effusions. Moderate pericardial effusion. Normal LV , RV function. Mild TR, trace MR. No vegetations noted. CXR 09/01: Progressive BL changes. Likely ARDS. Consults: Renal Pulmonology Heme/Onc Infectious Disease Cardiology Pt was pronounced at 6:18AM by covering night team. Dr. Webster notified. RN to notify family and PCP. Grievance services will be offered. Body planned for transfer to home per family approval. Minutes to complete discharge: 35 Discharge Summary Reason For Visit: METASTASIS FROM MALIGNANT TUMOR; SEPSIS Condition: Critical - Instructions Referrals: Tylor Smith MD [Primary Care Provider] - Disposition: - Home Medications Comprehensive Discharge Medication List: Ambulatory Orders Xalatan 0.005% Eye Drops - 1 drop OU HS 09/01/16 Sitagliptin Phos/Metformin HCl [Janumet Xr 50-500 mg Tablet] 1 each PO DAILY Furosemide 20 mg PO DAILY 02/28/17 Potassium 1 tab PO DAILY 08/06/17 This patient is new to me today: No Emergency Visit: Yes ED Registration Date: 08/29/17 Care time: The patient presented to the Emergency Department on the above date and was hospitalized for further evaluation of their emergent condition. Critical Care patient: Yes Total Critical Care Time (in minutes): 35 Critical Care Statement: The care of this patient involved high complexity decision making to prevent further life threatening deterioration of the patient 's condition and/or to evaluate & treat vital organ system(s) failure or risk of failure. - Discharge Referral Referred to [facility] No
--- NOTE | 2017-09-02 23:38 | PN ---
Physical Exam: SUBJECTIVE: The patient is a 72F with a PMH of HTN, fibromyalgia, stage 4 breast ca w/ mets , chronic malignant pleural effusions who was found to be hypotensive by her PMD. The patient is complaining of increased swelling in her arms and legs. She had no overnight events. She remains to be hypotensive. OBJECTIVE: Vital Signs Period Temp Pulse Resp BP Sys/Giron Pulse Ox Last 24 Hr 87-123 12-13 75-81/34-53 GENERAL: The patient is awake, alert, and fully oriented, in no acute distress. Mild lethargy. HEAD: Normal with no signs of trauma. EYES: PERRL, extraocular movements intact, sclera anicteric, conjunctiva clear. No ptosis. NECK: Trachea midline, full range of motion, supple. LUNGS: Breath sounds coarse bilaterally, no accessory muscle use. HEART: Regular rate and rhythm, S1, S2 without murmur, rub or gallop. ABDOMEN: Soft, nontender, nondistended, normoactive bowel sounds, no guarding, no rebound, no hepatosplenomegaly, no masses. EXTREMITIES: 2+ pulses, warm, well-perfused, 3-4+ edema in b/l upper and LE. NEUROLOGICAL: Cranial nerves II through XII grossly intact. Normal speech, gait not observed. PSYCH: Normal mood, normal affect. SKIN: Warm, dry, normal turgor, no rashes or lesions noted Laboratory Results - last 24 hr 09/02/17 09/02/17 09/02/17 05:30 05:30 05:30 WBC 25.5 H RBC 1.93 L D Hgb 6.3 L* D Hct 21.5 L D MCV 111.5 H D MCH 32.7 MCHC 29.4 L RDW 27.8 H Plt Count 63 L D MPV 8.5 Neutrophils % No Result Required. Neutrophils % (Manual) No Result Required. Lymphocytes % No Result Required. PT with INR 53.00 H INR 4.69 H* D Sodium 131 L Potassium Chloride 103 Carbon Dioxide 9 L D Anion Gap 19 H BUN 43 H Creatinine 2.3 H D Random Glucose 226 H D Lactic Acid Calcium 5.1 L* Phosphorus 8.4 H D Magnesium Y Total Bilirubin 10.6 H D Direct Bilirubin 8.1 H D AST Y ALT 571 H D Alkaline Phosphatase 364 H D Total Protein 3.0 L D Albumin 1.1 L D 09/02/17 05:30 WBC RBC Hgb Hct MCV MCH MCHC RDW Plt Count MPV Neutrophils % Neutrophils % (Manual) Lymphocytes % PT with INR INR Sodium Potassium Chloride Carbon Dioxide Anion Gap BUN Creatinine Random Glucose Lactic Acid 11.8 H* Calcium Phosphorus Magnesium Total Bilirubin Direct Bilirubin AST ALT Alkaline Phosphatase Total Protein Albumin ASSESSMENT/PLAN: Neuro: - The patient is at her baseline CV: - Monitor BP - Continue pressors to stabilize BP Pulm: - CXR continuing to show b/l pleural effusions - Zosyn for possible pna coverage GI: - Increasing alk phos - RUQ negative for acute pathology ID: - Lactate increasing, likely 2/2 to acute sepsis - Will continue to give fluids and resuscitate patient PPX: - Heparin FEN (Fluids, electrolytes, nutrition): - NS @ 100 Dispo: - Continue to monitor in ICU - Keep close watch for hypotensive BP Visit type - Emergency Visit Emergency Visit: Yes ED Registration Date: 08/29/17 Care time: The patient presented to the Emergency Department on the above date and was hospitalized for further evaluation of their emergent condition. - New Patient This patient is new to me today: No - Critical Care Critical Care patient: Yes Total Critical Care Time (in minutes): 38 Critical Care Statement: The care of this patient involved high complexity decision making to prevent further life threatening deterioration of the patient 's condition and/or to evaluate & treat vital organ system(s) failure or risk of failure.
== END 2017-09-02 06:18 | disposition expired | DRG 871 ==
LOC: JER 11:29 → JERBED 14:56 → JICU 23:52
PROVIDERS: ADMIT Internal Medicine; ATTEND Internal Medicine
PROC: 3E0F7GC Introduction of Other Therapeutic Substance into Respiratory Tract, Via Natural or Artificial Opening (ICD-10-PCS; principal; 2017-08-30)
DX: A41.59 Other Gram-negative sepsis (principal); R65.21 Severe sepsis with septic shock; K83.1 Obstruction of bile duct; N17.0 Acute kidney failure with tubular necrosis; J96.01 Acute respiratory failure with hypoxia; C79.51 Secondary malignant neoplasm of bone; C78.7 Secondary malignant neoplasm of liver and intrahepatic bile duct; J91.0 Malignant pleural effusion; D68.8 Other specified coagulation defects; E87.1 Hypo-osmolality and hyponatremia; R18.8 Other ascites; E87.2 Acidosis; I31.3 Pericardial effusion (noninflammatory); K76.6 Portal hypertension; I10 Essential (primary) hypertension; M79.7 Fibromyalgia; C50.919 Malignant neoplasm of unspecified site of unspecified female breast; K72.90 Hepatic failure, unspecified without coma; E80.6 Other disorders of bilirubin metabolism; E11.9 Type 2 diabetes mellitus without complications; J44.9 Chronic obstructive pulmonary disease, unspecified; I48.0 Paroxysmal atrial fibrillation; Z66 Do not resuscitate; Z87.891 Personal history of nicotine dependence; Z79.84 Long term (current) use of oral hypoglycemic drugs
CPT/HCPCS: 36415; 36600; 71010-TC; 71250-TC; 74176-TC; 76705-TC; 76775-TC; 76856-TC; 80048; 80053; 80076; 81003; 81015; 82140; 82248; 82375; 82436; 82550; 82570; 82607; 82746; 82803; 82947; 83036; 83050; 83605; 83615; 83690; 83735; 84100; 84133; 84300; 84484; 85025; 85044; 85384; 85610; 85730; 86850; 86870; 86900; 86901; 86902; 87040; 87086; 87186; 93005; 93010; 93306-TC; 93970-TC; 99285-25